=== PATIENT | female | born 1940 | race Caucasian/White ===

== ENCOUNTER → 2016-08-31 | Outpatient (CLI) | payer OTHER | LOC: FIMAGING 11:52 | PROVIDERS: ATTEND Internal Medicine Critical Care Medicine | DX: R91.8 Other nonspecific abnormal finding of lung field (principal); J47.9 Bronchiectasis, uncomplicated; I71.2 Thoracic aortic aneurysm, without rupture; I25.10 Atherosclerotic heart disease of native coronary artery without angina pectoris; K76.0 Fatty (change of) liver, not elsewhere classified ==

== ENCOUNTER 2016-11-06 15:03 | Inpatient (IN) | payer OTHER ==
[2016-11-06] MEDS ORDERED: IPRATROPIUM/ALBUTEROL 3 ML DEYVIAL ONE (15:17)
[2016-11-06] MEDS ORDERED: IPRATROPIUM/ALBUTEROL 3 ML DEYVIAL IH ONE (15:19)
[2016-11-06] MEDS ORDERED: IBUPROFEN 600 MG TAB PO ONE ×2 (15:26→15:50)
[2016-11-06] MEDS ORDERED: ACETAMINOPHEN 500 MG TAB ONE (15:26)
[2016-11-06] MEDS ORDERED: HYDROCORTISONE 100 MG/2 ML VIAL IVP ONE (15:33)
--- NOTE | 2016-11-06 15:39 | EDPHY ---
H & P Time Seen by Provider: 11/06/16 15:39 HPI/ROS: HPI: This is a 76-year-old female who presents with Chief Complaint: Fever Location: Quality: Fever Duration: Unknown Signs and Symptoms: Positive cough, positive diarrhea, no blood in stool, no chest pain, no vomiting Timing: Sudden, constant Severity: Moderate Context: Patient was brought in via EMS for fever since last night. Patient reports also that her diarrhea started last night a total of 5 times. Denies recent antibiotic use. EMS did bring her paper showing her med list as well as her surgical and medical history. No family at bedside. 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 Hysterectomy, 2013 sussy cardioversion. (Jessica Varma) Social History: Former smoker (Jessica Varma) Physical Exam: CONSTITUTIONAL: Obese white female, lethargic, toxic in appearance, wearing nasal cannula HEENT: Atraumatic and normocephalic, PERRL, EOMI. Tympanic membranes clear. Oropharynx clear, no exudate and dry oral mucosa. Airway patent. No lymphadenopathy. No meningismus. Cardiovascular: Normal S1/S2, irregular rate, tachycardic with a rate between varying between 120-130, without murmur rub or gallop. PULMONARY/CHEST: Symmetrical and nontender. Clear to auscultation bilaterally with diminished bases secondary to poor effort and body habitus. Dry cough noted Good air movement. No accessory muscle usage. ABDOMEN: Soft, nondistended, nontender, no rebound, no guarding, no peritoneal signs, no masses or organomegaly. No CVAT. EXTREMITIES: 2/2 pulses, no deformities, no clubbing, no cyanosis or edema. NEUROLOGICAL: no focal neuro deficits. GCS 13. Confused with delayed reaction. Generalized weakness. SKIN: Warm and dry, no erythema. no rash. Good capillary refill. (Jessica Varma) Constitutional: Initial Vital Signs Temperature (C) 39.4 C H 11/06/16 15:22 Heart Rate 112 H 11/06/16 15:22 Respiratory Rate 24 H 11/06/16 15:22 Blood Pressure 163/71 H 11/06/16 15:22 O2 Sat (%) 93 11/06/16 15:22 O2 Delivery Mode Nasal Cannula O2 (L/minute) 3 Allergies/Adverse Reactions: No Known Allergies Allergy (Unverified 11/13/12 09:05) Home Medications: Medication Instructions Recorded Acetaminophen [Tylenol ES 500 mg 500 mg PO Q4H PRN 11/06/16 (*)] Albuterol Sulfate [ALBUTEROL 0.63 mg IH DAILY 11/06/16 SULFATE] Albuterol Sulfate [ALBUTEROL 0.63 mg IH DAILY PRN 11/06/16 SULFATE] Albuterol Sulfate [Proair Hfa] 1 - 2 puffs IH Q4-6PRN PRN 11/06/16 Apixaban [Eliquis] 5 mg PO BID 11/06/16 Aspirin [Aspirin 81mg (*)] 81 mg PO DAILY 11/06/16 Cetirizine [ZyrTEC 10 mg (*)] 10 mg PO DAILY 11/06/16 Cholecalciferol Vit D3 [Vitamin D3 1,000 units PO DAILY 11/06/16 (*)] Digoxin [Digitek] 125 mcg PO DAILY 11/06/16 Diltiazem HCl [Diltiazem 24Hr Cd] 360 mg PO DAILY 11/06/16 Docusate Sodium [Colace 100 MG (*)] 200 mg PO HS PRN 11/06/16 Estradiol [Estrace Vaginal (*)] 42.5 gm VG MOTUWETH 11/06/16 Fluticasone/Salmeterol [ADVAIR HFA 2 puffs IH BID 11/06/16 230-21 MCG INHALER] Furosemide [Lasix 40 MG (*)] 40 mg PO DAILY@1400 11/06/16 Herbals/Supplements -Info Only 1 ea PO DAILY 11/06/16 Ipratropium [place] [IPRATROPIUM 1 spray NS DAILY 11/06/16 BROMIDE] Levothyroxine [Synthroid 175 mcg 175 mcg PO DAILY06 11/06/16 (*)] Metoprolol Succinate Xr [Toprol Xl 25 mg PO DAILY 11/06/16 25 mg (*)] Metoprolol Succinate Xr [Toprol Xl 100 mg PO HS 11/06/16 25 mg (*)] Montelukast Sodium [Singulair 10 10 mg PO DAILY@1800 11/06/16 mg (*)] SIMVASTATIN 10 mg PO HS 11/06/16 diphenhydrAMINE [Benadryl 25 MG 25 mg PO HS 11/06/16 (*)] guaiFENesin/DEXTROMETHORPHAN 2 tab PO DAILY 11/06/16 [Mucinex Dm ER 1,200-60 mg Tab] Medical Decision Making - Diagnostics EKG Interpretation: 12-lead EKG interpreted by me; official reading is in trace master. My interpretation is atrial fibrillation with diffuse repolarization abnormality, rate 108. (Arnaldo Moreno) Imaging Results: Imaging Impressions Chest X-Ray 11/06/16 15:33 Impression: Cardiomegaly with chronic congestive heart failure. Abdomen CT 11/06/16 16:17 Impression: 1. Acute to subacute left renal cortical infarction with surrounding inflammation. This is either renal artery related or embolic/cardiac related. 2. Moderate cardiomegaly. 3. No hydronephrosis. 4. Distal second/proximal third portion of the duodenum dilated at the upper limit of normal at 3 to 4 cm, fluid filled. This is probably incidental and not clinically significant. 5. Right lower quadrant hypodense lesion with a Hounsfield unit below 0, suggestive of fatty content. Has the patient had both ovaries removed? This may represent a dermoid. Findings and recommendations discussed with Jessica Varma PA-C at 1747 hours on November 06, 2016. Final report concurs with initial preliminary interpretation. Head CT 11/06/16 16:17 Impression: Nothing acute. Findings and recommendations discussed with Jessica Varma at 1741 hour, 2016. Final report concurs with initial preliminary interpretation. ED Course/Re-evaluation: Sepsis workup with presumed etiology lung versus urine EKG, labs, CXR, UA in and out, ABG tylenol supp, Duoneb, NS 30 ML/kg, IV hydrocortisone 100 mg given Has a history AFib and subtherapeutic; CT abdominal and pelvis scan ordered to evaluate for ischemic as well as head CT scan due to encephalopathy CXR my read shows atelectasis; no opacity. Signed out to Dr. Moreno at 1700 pending rest of severe sepsis workup. not requiring pressors at sign out. will need admission. (Jessica Varma) Differential Diagnosis: Adult fever including but not limited to viral syndromes including influenza, urinary tract infection, pneumonia and sepsis. (Jessica Varma) Critical Care Time: Critical care time spent by me, Dr. Moreno, exclusively with the care of this patient was 40 minutes, exclusive of PA or TEACHING DIETITIAN time and exclusive of separate procedures. The organ system at risk was hematologic and infectious and I ordered fluid resuscitation, multiple diagnostic studies, anticoagulation, IV antibiotics, discussion with hospitalist; to stabilize the patient and prevent worsening of the patient's condition. (Arnaldo Moreno) Other Provider: PHYSICIAN DOCUMENTATION: The patient was evaluated and managed by the Physician Team Manager and myself. I have reviewed the chart and agree with the findings and plan of care as documented. In addition, I examined the patient myself at 1545. History confirmed as diarrhea, fever and chills. Physical findings as follows: Patient is encephalopathic, she can answer her name and age but can't answer questions regarding her medications or primary care physician. Does follow commands. No rebound or guarding on abdominal exam. CT head negative for Dr. Barnes at 5:[address] shows no mesenteric ischemia but acute infarct of the mid lower renal pelvis on the left side, no abscess. There is 3 cm low density region of the right adnexa. Patient re-evaluated at 6:00 p.m., septic shock with lactate 4.0. Fluid bolus ordered, broad-spectrum antibiotics to include ceftriaxone 1 g IV for pyuria. Discussed with Dr. Brito, admit to step-down, will anticoagulate with single dose Lovenox at this time. Patient is supposed to be taking Eliquis but has managed to have a renal infarct despite this. 1844: CT scan per radiologist Rajesh shows inflamed prostate, thickened bladder , otherwise negative. 1927: Received Lovenox, systolic blood pressure 106 after septic shock fluid bolus, stable for admission to inpatient. 1950: 111/55 bp. \ I am the secondary supervising physician. (Arnaldo Moreno) - Data Points Laboratory Results: Laboratory Results 11/06/16 17:35 11/06/16 15:33 11/06/16 11/06/16 11/06/16 17:35 16:40 16:26 WBC 11.99 10^3/uL H 10^3/uL REJ (3.80-9.50) RBC 4.09 10^6/uL L 10^6/uL REJ (4.18-5.33) Hgb 13.7 g/dL g/dL REJ (12.6-16.3) Hct 39.8 % % REJ (38.0-47.0) MCV 97.3 fL fL REJ (81.5-99.8) MCH 33.5 pg pg REJ (27.9-34.1) MCHC 34.4 g/dL g/dL REJ (32.4-36.7) RDW 12.9 % % REJ (11.5-15.2) Plt Count 152 10^3/uL 10^3/uL REJ (150-400) MPV 9.3 fL fL REJ (8.7-11.7) Neut % (Auto) 93.9 % H % REJ (39.3-74.2) Lymph % (Auto) 2.8 % L % REJ (15.0-45.0) Elbert % (Auto) 1.3 % L % REJ (4.5-13.0) Eos % (Auto) 0.0 % L % REJ (0.6-7.6) Baso % (Auto) 0.4 % % REJ (0.3-1.7) Nucleat RBC Rel Count 0.0 % % REJ (0.0-0.2) Absolute Neuts (auto) 11.25 10^3/uL H 10^3/uL REJ (1.70-6.50) Absolute Lymphs (auto) 0.34 10^3/uL L 10^3/uL REJ (1.00-3.00) Absolute Monos (auto) 0.16 10^3/uL L 10^3/uL REJ (0.30-0.80) Absolute Eos (auto) 0.00 10^3/uL L 10^3/uL REJ (0.03-0.40) Absolute Basos (auto) 0.05 10^3/uL 10^3/uL REJ (0.02-0.10) Absolute Nucleated RBC 0.00 10^3/uL 10^3/uL REJ (0-0.01) Immature Gran % 1.6 % H % REJ (0.0-1.1) Seg Neutrophils % 82 % % Band Neutrophils % 14 % % Lymphocytes % 2 % % Monocytes % Eosinophils % Basophils % Metamyelocytes % 2 % % Myelocytes % Promyelocytes % Blast Cells % Megakaryocytes % Immature Gran # 0.19 10^3/uL H 10^3/uL REJ (0.00-0.10) Absolute Seg Neuts 9.83 10^/uL H 10^/uL (1.70-6.50) Absolute Band Neuts 1.68 10^3/uL H 10^3/uL (0.00-0.70) Absolute Lymphocytes 0.24 10^3/uL L 10^3/uL (1.00-3.00) Absolute Monocytes Absolute Eosinophils Absolute Basophils Absolute Metamyelocyte 0.24 10^3/mL H 10^3/mL (0.00-0.00) Absolute Myelocytes Absolute Promyelocytes Absolute Plasma Cells Nucleated RBCs Differential Comment RBC/WBC/PLT Morphology NORMAL (NORMAL) Hypersegmented Neuts Atypical Lymphocytes Absolute Blast Cells Plasma Cells % Smudge Cells Toxic Granulation Toxic Vacuolation PRESENT H Dohle Bodies Nicole Rods Platelet Estimate ADEQUATE (ADEQ) Clumped Platelets Large Platelets Giant Platelets Bizarre Platelets Polychromasia Hypochromasia Basophilic Stippling Microcytic Cells Spherocytes Pappenheimer Bodies Sickle Cells Target Cells Tear Drop Cells Oval Macrocytes Stomatocytes Mary-[place]eguada Bodies Echinocytes Elliptocytes Acanthocytes (Spur) Rouleaux Keratocytes Schistocytes PT INR APTT VBG Lactic Acid Mixed VBG O2 Saturation Sodium Potassium Chloride Carbon Dioxide Anion Gap BUN Creatinine Estimated GFR Glucose Calcium Total Bilirubin TSH Urine Color YELLOW Urine Appearance HAZY Urine pH 5.0 (5.0-7.5) Ur Specific [place] 1.025 (1.002-1.030) Urine Protein 1+ H (NEGATIVE) Urine Ketones TRACE H (NEGATIVE) Urine Blood NEGATIVE (NEGATIVE) Urine Nitrate NEGATIVE (NEGATIVE) Urine Bilirubin NEGATIVE (NEGATIVE) Urine Urobilinogen NEGATIVE EU EU (0.2-1.0) Ur Leukocyte Esterase TRACE H (NEGATIVE) Urine RBC 3-5 /hpf H /hpf (0-3) Urine WBC 5-10 /hpf H /hpf (0-3) Ur Epithelial Cells NONE SEEN /lpf /lpf (NONE-1+) Urine Bacteria 4+ /hpf H /hpf (NONE SEEN) Hyaline Casts 5-15 /lpf /lpf (0-1) Urine Mucus TRACE /lpf /lpf (NONE-1+) Urine Glucose NEGATIVE (NEGATIVE) Digoxin Cold Agglutinins 11/06/16 11/06/16 11/06/16 15:44 15:44 15:33 WBC RBC Hgb Hct MCV MCH MCHC RDW Plt Count MPV Neut % (Auto) Lymph % (Auto) Elbert % (Auto) Eos % (Auto) Baso % (Auto) Nucleat RBC Rel Count Absolute Neuts (auto) Absolute Lymphs (auto) Absolute Monos (auto) Absolute Eos (auto) Absolute Basos (auto) Absolute Nucleated RBC Immature Gran % Seg Neutrophils % Band Neutrophils % Lymphocytes % Monocytes % Eosinophils % Basophils % Metamyelocytes % Myelocytes % Promyelocytes % Blast Cells % Megakaryocytes % Immature Gran # Absolute Seg Neuts Absolute Band Neuts Absolute Lymphocytes Absolute Monocytes Absolute Eosinophils Absolute Basophils Absolute Metamyelocyte Absolute Myelocytes Absolute Promyelocytes Absolute Plasma Cells Nucleated RBCs Differential Comment RBC/WBC/PLT Morphology Hypersegmented Neuts Atypical Lymphocytes Absolute Blast Cells Plasma Cells % Smudge Cells Toxic Granulation Toxic Vacuolation Dohle Bodies Nicole Rods Platelet Estimate Clumped Platelets Large Platelets Giant Platelets Bizarre Platelets Polychromasia Hypochromasia Basophilic Stippling Microcytic Cells Spherocytes Pappenheimer Bodies Sickle Cells Target Cells Tear Drop Cells Oval Macrocytes Stomatocytes Mary-[place] Bodies Echinocytes Elliptocytes Acanthocytes (Spur) Rouleaux Keratocytes Schistocytes PT INR APTT VBG Lactic Acid 4.0 mmol/L H mmol/L (0.7-2.1) Mixed VBG O2 Saturation 56 % L % (65-75) Sodium 135 mEq/L mEq/L (134-144) Potassium 4.0 mEq/L mEq/L (3.5-5.2) Chloride 100 mEq/L mEq/L (97-110) Carbon Dioxide 18 mEq/l L mEq/l (22-31) Anion Gap 17 mEq/L H mEq/L (8-16) BUN 21 mg/dL mg/dL (7-23) Creatinine 0.9 mg/dL mg/dL (0.6-1.0) Estimated GFR > 60 Glucose 96 mg/dL mg/dL (70-100) Calcium 9.4 mg/dL mg/dL (8.5-10.4) Total Bilirubin 1.3 mg/dL mg/dL (0.1-1.4) TSH 1.560 uIU/mL uIU/mL (0.465-4.680) Urine Color Urine Appearance Urine pH Ur Specific [place] Urine Protein Urine Ketones Urine Blood Urine Nitrate Urine Bilirubin Urine Urobilinogen Ur Leukocyte Esterase Urine RBC Urine WBC Ur Epithelial Cells Urine Bacteria Hyaline Casts Urine Mucus Urine Glucose Digoxin 0.5 ng/mL L ng/mL (0.8-2.0) Cold Agglutinins 11/06/16 11/06/16 15:33 15:33 WBC REJ RBC REJ Hgb REJ Hct REJ MCV REJ MCH REJ MCHC REJ RDW REJ Plt Count REJ MPV REJ Neut % (Auto) REJ Lymph % (Auto) REJ Elbert % (Auto) REJ Eos % (Auto) REJ Baso % (Auto) REJ Nucleat RBC Rel Count REJ Absolute Neuts (auto) REJ Absolute Lymphs (auto) REJ Absolute Monos (auto) REJ Absolute Eos (auto) REJ Absolute Basos (auto) REJ Absolute Nucleated RBC REJ Immature Gran % REJ Seg Neutrophils % REJ Band Neutrophils % REJ Lymphocytes % REJ Monocytes % REJ Eosinophils % REJ Basophils % REJ Metamyelocytes % REJ Myelocytes % REJ Promyelocytes % REJ Blast Cells % REJ Megakaryocytes % REJ Immature Gran # REJ Absolute Seg Neuts REJ Absolute Band Neuts REJ Absolute Lymphocytes REJ Absolute Monocytes REJ Absolute Eosinophils REJ Absolute Basophils REJ Absolute Metamyelocyte REJ Absolute Myelocytes REJ Absolute Promyelocytes REJ Absolute Plasma Cells REJ Nucleated RBCs REJ Differential Comment REJ RBC/WBC/PLT Morphology REJ Hypersegmented Neuts REJ Atypical Lymphocytes REJ Absolute Blast Cells REJ Plasma Cells % REJ Smudge Cells REJ Toxic Granulation REJ Toxic Vacuolation REJ Dohle Bodies REJ Nicole Rods REJ Platelet Estimate REJ Clumped Platelets REJ Large Platelets REJ Giant Platelets REJ Bizarre Platelets REJ Polychromasia REJ Hypochromasia REJ Basophilic Stippling REJ Microcytic Cells REJ Spherocytes REJ Pappenheimer Bodies REJ Sickle Cells REJ Target Cells REJ Tear Drop Cells REJ Oval Macrocytes REJ Stomatocytes REJ Mary-[place] Bodies REJ Echinocytes REJ Elliptocytes REJ Acanthocytes (Spur) REJ Rouleaux REJ Keratocytes REJ Schistocytes REJ PT 19.3 SEC H SEC (12.0-15.0) INR 1.62 H (0.83-1.16) APTT 33.4 SEC SEC (23.0-38.0) VBG Lactic Acid Mixed VBG O2 Saturation Sodium Potassium Chloride Carbon Dioxide Anion Gap BUN Creatinine Estimated GFR Glucose Calcium Total Bilirubin TSH Urine Color Urine Appearance Urine pH Ur Specific [place] Urine Protein Urine Ketones Urine Blood Urine Nitrate Urine Bilirubin Urine Urobilinogen Ur Leukocyte Esterase Urine RBC Urine WBC Ur Epithelial Cells Urine Bacteria Hyaline Casts Urine Mucus Urine Glucose Digoxin Cold Agglutinins REJ Medications Given: Discontinued Medications Acetaminophen (Tylenol 160mg/5ml Oral Liquid) 1,000 mg PO EDNOW ONE Stop: 11/06/16 15:51 Last Admin: 11/06/16 16:12 Dose: Not Given Acetaminophen (Tylenol) 1,000 mg PO EDNOW ONE Stop: 11/06/16 16:14 Last Admin: 11/06/16 16:13 Dose: 1,000 mg Albuterol/Ipratropium (Duoneb) 3 ml IH EDNOW ONE Stop: 11/06/16 15:20 Last Admin: 11/06/16 15:20 Dose: 3 ml Enoxaparin Sodium (Lovenox) 100 mg SC EDNOW ONE Stop: 11/06/16 18:07 Last Admin: 11/06/16 18:39 Dose: 100 mg Hydrocortisone (Solucortef) 100 mg IVP EDNOW ONE Stop: 11/06/16 15:34 Last Admin: 11/06/16 15:44 Dose: 100 mg Sodium Chloride (Ns) 1,000 mls @ 0 mls/hr IV EDNOW ONE; Wide Open PRN Reason: Protocol Stop: 11/06/16 15:41 Last Admin: 11/06/16 15:45 Dose: 1,000 mls Sodium Chloride (Ns) 1,000 mls @ 0 mls/hr IV ONCE ONE PRN Reason: Wide Open Stop: 11/06/16 17:02 Last Admin: 11/06/16 17:28 Dose: 1,000 mls Ceftriaxone Sodium/Dextrose (Rocephin 1 Gm (Premix)) 50 mls @ 100 mls/hr IV EDNOW ONE PRN Reason: Protocol Stop: 11/06/16 18:26 Last Admin: 11/06/16 18:08 Dose: 50 mls Sodium Chloride (Ns) 3,100 mls @ 6,200 mls/hr 30 ml/kg infuse over 30 min ( 3100 ml) IV EDNOW ONE PRN Reason: Protocol Stop: 11/06/16 18:26 Last Admin: 11/06/16 18:23 Dose: Not Given Sodium Chloride (Ns) 1,000 mls @ 0 mls/hr IV ONCE ONE PRN Reason: Wide Open Stop: 11/06/16 18:07 Last Admin: 11/06/16 18:07 Dose: 1,000 mls Ibuprofen (Motrin) 600 mg PO EDNOW ONE Stop: 11/06/16 15:51 Last Admin: 11/06/16 15:50 Dose: 600 mg Departure - Departure Disposition: [facility] Acute Clinical Impression: Encephalopathy acute, Renal infarct, Septic shock Urinary tract infection Qualifiers: Urinary tract infection type: acute pyelonephritis Qualified Code(s): N10 - Acute pyelonephritis Clinical Impression: (Ruled Out): Acute metabolic encephalopathy Condition: Serious
[2016-11-06] MEDS ORDERED: NS 1,000 ML IV ONE ×3 (15:40→18:06)
[2016-11-06] MEDS ORDERED: ACETAMINOPHEN 160 MG/5 ML UDCUP PO ONE (15:50)
[2016-11-06 15:55] LABS: MIXED VENOUS O2 SATURATION 56 % (65-75)
[2016-11-06 16:06] LABS: INR 1.62 (0.83-1.16); PROTIME(PATIENT) 19.3 SEC (12.0-15.0)
[2016-11-06 16:07] LABS: APTT 33.4 SEC (23.0-38.0)
--- NOTE | 2016-11-06 16:12 | CPEKG ---
Heart Rate: 108 RR Interval: 556 QRSD Interval: 92 QT Interval: 368 QTC Interval: 494 QRS [place]: -9 T Wave [place]: -26 EKG Severity - ABNORMAL ECG - EKG Impression: ATRIAL FIBRILLATION, V-RATE 79-138 EKG Impression: CONSIDER POSTERIOR INFARCT EKG Impression: BORDERLINE REPOL ABNORMALITY, DIFFUSE LEADS EKG Impression: BORDERLINE PROLONGED QT INTERVAL Electronically Signed By: Arnaldo Moreno 06-Nov-2016 16:15:50
[2016-11-06] MEDS ORDERED: ACETAMINOPHEN 500 MG TAB PO ONE (16:13)
[2016-11-06 16:15] LABS: ANION GAP 17 mEq/L (8-16); BILIRUBIN,TOTAL 1.3 mg/dL (0.1-1.4); CALCIUM 9.4 mg/dL (8.5-10.4); CARBON DIOXIDE 18 mEq/l (22-31); CHLORIDE 100 mEq/L (97-110); CREATININE 0.9 mg/dL (0.6-1.0); DIGOXIN 0.5 ng/mL (0.8-2.0); GLOMERULAR FILTRATION RATE > 60; GLUCOSE 96 mg/dL (70-100); SODIUM 135 mEq/L (134-144)
[2016-11-06] MEDS ORDERED: IOPAMIDOL (ISOVUE-300) 100 ML BTL ONE (16:30)
[2016-11-06 16:43] LABS: COLOR YELLOW; LEUKOCYTE ESTERASE,URINE TRACE (NEGATIVE); NITRITE,URINE NEGATIVE (NEGATIVE)
[2016-11-06 16:50] LABS: LACGHOST ORDER
[2016-11-06 17:08] LABS: BACTERIA 4+ /hpf (NONE SEEN); MUCUS TRACE /lpf (NONE-1+)
[2016-11-06 17:45] LABS: % IMMATURE GRANULYOCYTES 1.6 % (0.0-1.1); ABSOLUTE IMMATURE GRANULOCYTES 0.19 10^3/uL (0.00-0.10); ADD DIFF? NO; ADD MORPH? NO; ADD SCAN? YES; ATYPICAL LYMPHOCYTE FLAG 0 (0-99); FRAGMENT RBC FLAG 0 (0-99); HEMATOCRIT 39.8 % (38.0-47.0); HEMOGLOBIN 13.7 g/dL (12.6-16.3); LIPEMIA HEMOLYSIS FLAG 90 (0-99); MEAN CELL HEMOGLOBIN 33.5 pg (27.9-34.1); MEAN CELL HEMOGLOBIN CONCENTR. 34.4 g/dL (32.4-36.7); MEAN CELL VOLUME 97.3 fL (81.5-99.8); MEAN PLATELET VOLUME 9.3 fL (8.7-11.7); PLATELET CLUMPS FLAG 20 (0-99); RED BLOOD CELL COUNT 4.09 10^6/uL (4.18-5.33); RED CELL DISTRIBUTION WIDTH 12.9 % (11.5-15.2)
[2016-11-06 17:54] LABS: LEFT SHIFT FLG 150 (0-99)
[2016-11-06] MEDS ORDERED: NS 3,100 ML IV ONE (17:57)
[2016-11-06] MEDS ORDERED: ENOXAPARIN 100 MG/ML SYR SC ONE (18:06)
[2016-11-06 18:20] LABS: PLATELET COUNT 152 10^3/uL (150-400)
[2016-11-06 18:21] LABS: SCAN POSITIVE
[2016-11-06 18:24] LABS: PLATELET ESTIMATE ADEQUATE (ADEQ)
[2016-11-06 18:25] LABS: TOXIC VACUOLIZATION PRESENT
[2016-11-06] MEDS ORDERED: ONDANSETRON 4 MG/2 ML VIAL IVP PRN (18:58)
[2016-11-06] MEDS ORDERED: ONDANSETRON DISINTEGRATING 4 MG TAB PO PRN (18:58)
--- NOTE | 2016-11-06 20:15 | GHP ---
[f rep st] HISTORY AND PHYSICAL DATE OF ADMISSION: 11/06/2016 CHIEF COMPLAINT: Nausea, vomiting, diarrhea, severe sepsis. HISTORY OF PRESENT ILLNESS: A pleasant 76-year-old female with history of atrial fibrillation, diastolic heart failure, and asthma, presented from [facility] with nausea, vomiting, diarrhea. She reports chills starting Saturday and subsequently developed nonbloody diarrhea on Saturday. Has had subjective fevers and dry heaves but no emesis. No dysuria but increased urinary incontinence. No recent travel. No headache. Nonproductive cough. No myalgias. She is on Eliquis but missed a dose on Saturday when ill. REVIEW OF SYSTEMS: I completed a 10-point review of systems, negative except as noted in HPI. PAST MEDICAL HISTORY: Arthritis; diastolic heart failure; atrial fibrillation on Eliquis, status post cardioversion x2; asthma; BELLO on CPAP; hypertension; hyperlipidemia; hypothyroidism; thyroid nodule; recent Holter monitor with atrial fibrillation with good rate control. PAST SURGICAL HISTORY: Cataract, Achilles tendon repair, colonoscopy, hysterectomy, lumbar surgery, shoulder surgery, lung nodule biopsy. SOCIAL HISTORY: Is a retired physical sciences instructor. Lives in [facility] alone. 20 months ago. Independent living. No illicits, tobacco, or drugs. FAMILY HISTORY: Noncontributory. HOME MEDICATIONS: Herbal supplement, docusate, Mucinex, vitamin D3, Benadryl as needed, Zyrtec, Tylenol, simvastatin 10 mg daily, levothyroxine 175 mcg, estradiol, ipratropium/albuterol, Singulair, Advair, metoprolol 25 mg XL, Lasix 40 mg daily, digoxin 125 mcg daily, diltiazem 36 mg daily, aspirin 81 daily. ALLERGIES: No known drug allergies. PHYSICAL EXAMINATION: VITAL SIGNS: Temperature 37.8. Blood pressure initially was 167/71, dropped to 96/56. Heart rate 80s to 112. Respirations 20. Temperature 39.4. 93% on 3 L. GENERAL: Overweight female. No acute distress. HEENT: PERRLA. EOMI. Dry mucous membranes. Oropharynx clear. CV : Irregularly irregular. LUNGS: No crackles or wheezing. ABDOMEN: Soft, nondistended. Positive epigastric pain. No rebound or guarding. Positive bowel sounds. : No suprapubic or CVA tenderness. MUSCULOSKELETAL: 5/5 upper and lower extremity strength. NEURO: 2 through 12 intact. PSYCH: Alert and oriented x3. LABS: WBC 11.99, hemoglobin 13, hematocrit 39, platelets 152. INR 1.6, PT 19. Lactate 4, repeat 1.5. Sodium 135, potassium 4, carbon dioxide 18, anion gap 17, creatinine 0.9, glucose 96. TSH 1.5. Total bilirubin 1.3. UA: 5-10 white , +4 bacteria. Digoxin 0.5. Head CT, personally reviewed by me: No acute bleed. Abdominal CT: Acute to subacute left renal cortical infarct with surrounding inflammation. Moderate cardiomegaly. No hydronephrosis. Chest x-ray, personally reviewed by me: Mild pulmonary edema. Mild blunting of costophrenic angle. EKG, personally reviewed by me: Atrial fibrillation. Tachycardic. ASSESSMENT AND PLAN: 1. Septic shock: Patient with fever, mild leukocytosis, and positive urinalysis. We will treat with ceftriaxone. Check gastrointestinal panel with diarrhea. No recent antibiotics. Blood and urine cultures are pending. Aggressive IVFs, repeat lactate. Cont IVFs 2 Lactic acidosis: due to acute infection. This resolved with intravenous fluids. 3. Hypotension: due to UTI. Secondary to acute infection. Intravenous fluids , as stated above. 4. Renal infarct: embolic vs hypoperfusion. TTE to eval for thrombus. Can further eval for renal dissection/stenosis with renal angiogram. Suspect this is embolic with history of atrial fibrillation. She is on Eliquis and missed 1 dose. She has been dosed full-dose Lovenox here. We will continue this. 5. Metabolic anion gap acidosis: Secondary to dehydration. Aggressive intravenous fluids. 6. History of thyroid nodule: TSH within normal. 7. Hypertension: Hold antihypertensives in the setting of sepsis. 8. Atrial fibrillation: restart in morning given hypotension. If needed, give low-dose short acting BB if needed overnight. 9. Hypothyroidism: Synthroid. 10. Hyperlipidemia: Statin. 11. Diet: Regular. 12. Deep venous thrombosis prophylaxis: Lovenox. DISPOSITION: The patient warrants inpatient admission, given acute septic shock , warranting ICU stay, aggressive IV fluids, and antibiotics. Critical time spent: 60 min evaluating patient, reviewing records, labs and imaging and coordinating care. /[id number]/MODL [id number]
[2016-11-06] MEDS: NS 1,000 ML IV SCH (21:48)
[2016-11-06 23:35] LABS: BILIRUBIN,TOTAL 1.2 mg/dL (0.1-1.4); BILIRUBIN-CONJUGATED 0.5 mg/dL (0.0-0.5); BILIRUBIN-UNCONJUGATED 0.7 mg/dL (0.0-1.1); TOTAL PROTEIN 6.8 g/dL (6.3-8.2)
[2016-11-07 05:23] LABS: HEMATOCRIT 36.9 % (38.0-47.0); HEMOGLOBIN 12.5 g/dL (12.6-16.3); MEAN CELL HEMOGLOBIN 33.8 pg (27.9-34.1); MEAN CELL HEMOGLOBIN CONCENTR. 33.9 g/dL (32.4-36.7); MEAN CELL VOLUME 99.7 fL (81.5-99.8); RED BLOOD CELL COUNT 3.7 10^6/uL (4.18-5.33); RED CELL DISTRIBUTION WIDTH 13.3 % (11.5-15.2)
[2016-11-07 05:46] LABS: ANION GAP 9 mEq/L (8-16); CALCIUM 7.8 mg/dL (8.5-10.4); CARBON DIOXIDE 20 mEq/l (22-31); CHLORIDE 112 mEq/L (97-110); CREATININE 0.7 mg/dL (0.6-1.0); GLOMERULAR FILTRATION RATE > 60; GLUCOSE 89 mg/dL (70-100); POTASSIUM 3.2 mEq/L (3.5-5.2); SODIUM 141 mEq/L (134-144)
[2016-11-07] MEDS: NS 1,000 ML IV SCH ×2 (06:23→16:51)
[2016-11-07] MEDS: DIGOXIN 125 MCG TAB PO SCH (11:42)
[2016-11-07] MEDS: DILTIAZEM CD 180 MG CAP PO SCH (11:42)
[2016-11-07] MEDS ORDERED: ALBUTEROL 3 ML DEYVIAL IH PRN (11:45)
[2016-11-07] MEDS: ACETAMINOPHEN 325 MG TAB PO PRN (11:45)
[2016-11-07] MEDS ORDERED: DOCUSATE SODIUM 100 MG CAP PO PRN (12:12)
[2016-11-07] MEDS ORDERED: ESTRADIOL 42.5 GM CRTUBE VG SCH (12:15)
[2016-11-07] MEDS ORDERED: LEVOTHYROXINE 175 MCG TAB PO ONE (12:39)
[2016-11-07] MEDS: IPRATROPIUM 0.06% NASAL SPRAY NS SCH (12:41)
--- NOTE | 2016-11-07 12:41 | HOSPPROG ---
Hospitalist Progress Note Assessment/Plan: 76 yo F w/hx of A fib, hypothyroid, HTN presenting with severe sepsis/septic shock in the setting of UTI # severe sepsis/septic shock: presenting with sirs with source of infection thought to be urinary with mildly abnormal UA and no other clear source as well as a lactic acid of 4. Lactate has cleared, HD stable. 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 imaging, at this point of unclear significance, TTE performed with results pending, doubt embolus given that patient only missed one dose or her AC # RAD: no e/o acute exacerbation, will continue her home medications # chronic diastolic heart failure: currently appears essentially euvolemic, will resume home lasix dose in am if bp stable # hypothyroid: continue lt4 # hld: continue statin # ron: continue cpap # Dispo: lives independently at [facility], has daughter in area involved in her care, left daughter a with call back info # DNR, patient has DNR bracelet on at all times, daughter would be decision maker IP status Subjective: no significant overnight events, very concerned about her medications, no sob, no abdominal pain Objective: Vital Signs Temp Pulse Resp BP Pulse Ox 36.8 C 92 13 167/71 H 96 11/07/16 11:54 11/07/16 11:54 11/07/16 11:54 11/07/16 11:54 11/07/16 11:54 Laboratory Results 11/07/16 05:14 11/07/16 05:14 11/06/16 11/07/16 11/08/16 05:59 05:59 05:59 Intake Total 4069 Output Total 1875 Balance 2194 PT 19.3 SEC (12.0-15.0) H 11/06/16 15:33 INR 1.62 (0.83-1.16) H 11/06/16 15:33 awake alert nad anicteric op clear irreg irreg no mrg cta b soft nt nd no cce warm dry well perfused oriented appropriate ICD10 Worksheet Patient Problems: Problems Problem Status Onset Encephalopathy acute Acute Urinary tract infection Acute Renal infarct Acute Septic shock Acute
[2016-11-07] MEDS: Fluticasone/Salmeterol [Advair Hfa 230-21 Mcg Inhaler] IH SCH ×2 (14:55→21:13)
--- NOTE | 2016-11-07 15:48 | ECHO ---
[id number] + + [address] : : [place] [address] : : [phone] + + Adult Echocardiographic Report + + :Name: YOCASTA STRANGE PStudy Date: 11/07/2016 09:48 AM : : Hospital Admission Number: [id number] Loc ation: 244: :: 1940 Gender: Female Height: 68 in : :Age: 76 yrs Race: WH,White Weight: 237 lb : :Reason For Study: Eval LV Fx : : BSA: 2.2 me ters2 : :History: Atrial Fibrillation, New renal infarct : + + MMode/2D Measurements \T\ Calculations IVSd: 0.86 cm LVIDd: 4.8 cm FS: 40.6 % Ao root diam: 2.9 cm LVPWd: 1.3 cm LVIDs: 2.8 cm EDV(Teich): 106.1 ml ACS: 1.8 cm ESV(Teich): 30.5 ml EF(Teich): 71.3 % Normal Measurement Values: + + :LVIDd (3.5-5.7cm) IVSd (0.6-1.1cm) LVPWd (0.6-1.1cm) Aortic Root (2.0-3.7cm)Left Atrium (1.5-4.0cm): :LV Vol(d) (76-115ml) LV Vol(s) (29-48ml) Ejec Fraction (50-65%)PV Ricardo (0.6- 1.2m/s) TV Ricardo (0.4-1.0m/s) : :MV E Ricardo (0.8-1.0m/s)MV A Ricardo (0.3-1.0m/s)LVOT Ricardo (0.7-1.2m/s) Asc Ao Ricardo ( 0.9-1.8m/s) : + + Doppler Measurements \T\ Calculations MV E max ricardo: Ao V2 max: LV V1 max: PA V2 max: 105.6 cm/sec 156.1 cm/sec 91.3 cm/sec 85.5 cm/sec Ao max P.7 mmHgLV V1 max PG: PA max P.3 mmHg 2.9 mmHg TR max ricardo: 275.5 cm/sec TR max P.4 mmHg RAP systole: 5.0 mmHg RVSP(TR): 35.4 mmHg Left Ventricle The left ventricle is normal in size. There is normal left ventricular wall thickness. The left ventricular ejection fraction is normal. Ejection Fraction = 72%. There is Doppler evidence for diastolic dysfunction. The rhythm is atrial fibrillation. No regional wall motion abnormalities noted. Right Ventricle The right ventricle is normal in size and function. Atria The left atrium is severely dilated. The right atrium is mild to moderately dilated. Mitral Valve The mitral valve is normal. There is no mitral valve stenosis. There is mild mitral regurgitation. Tricuspid Valve Normal tricuspid valve. There is mild tricuspid regurgitation. Aortic Valve The aortic valve is normal in structure and function. The aortic valve opens well. There is no aortic stenosis. There is no aortic insufficiency. Pulmonic Valve The pulmonic valve is normal in structure and function. There is no pulmonic valvular regurgitation. Great Vessels The aortic root is normal size. Pericardium/Pleural There is no pericardial effusion. Conclusion A complete two-dimensional transthoracic echocardiogram was performed (2D, M-mode, Doppler and color flow Doppler). The rhythm is atrial fibrillation. The left ventricular ejection fraction is normal. Ejection Fraction = 72%. There is Doppler evidence for diastolic dysfunction. No regional wall motion abnormalities noted. The right ventricle is normal in size and function. The left atrium is severely dilated. Normal appearing valves. There is mild mitral regurgitation. There is mild tricuspid regurgitation. The aortic valve opens well. The aortic root is normal size. There is no pericardial effusion. No obvious thrombus noted. Final Reading Physician: Socorro Alexander signed on 11/07/2016 03:46 PM Ordering Physician: Key Brito Performed By: Víctor Dumas, ERICKSONCS
[2016-11-07] MEDS: ESTRADIOL 42.5 GM CRTUBE VG SCH (16:23)
[2016-11-07] MEDS: MONTELUKAST SODIUM 10 MG TAB PO SCH (18:16)
--- NOTE | 2016-11-07 20:28 | GCON ---
[f rep st] CONSULTATION PULMONARY CRITICAL CARE CONSULTATION DATE OF CONSULTATION: 11/07/2016 REASON FOR CONSULTATION: Intensive care unit evaluation and management of sepsis. HISTORY: The patient is a very pleasant 76-year-old who lives independently at [facility]. Yaa jacobs was admitted yesterday with nausea, vomiting, and diarrhea. She was found to be hypotensive on ad mission. Lactate was elevated. Urinalysis was suggestive of a urinary tract infection. She was tr eated with intravenous fluids and antibiotics (ceftriaxone). Blood cultures have grown Klebsiella i n both bottles. Urine culture is pending. Another finding has included an acute or subacute small infarction of the left kidney. CT scan of t he head was negative. Chest x-ray showed cardiomegaly. Cardiac echo shows a normal left ventricula r ejection fraction and a dilated left atrium. There is mild mitral and tricuspid regurgitation. R ight ventricular pressures appear normal. The rhythm was atrial fibrillation. She has known underlying atrial fibrillation and is on anticoagulation for this. She is on twice a day Eliquis and has only missed 1 dose recently. She also has a history of asthma and congestive he art failure. She is on multiple medications. PAST MEDICAL HISTORY: Remarkable for atrial fibrillation, congestive heart failure secondary to uyen stolic dysfunction, chronic anticoagulation, asthma, obstructive sleep apnea on CPAP, hypothyroidism on replacement, systemic hypertension, and hyperlipidemia. PAST SURGICAL HISTORY: Includes orthopedic procedures, hysterectomy, and a lung nodule biopsy which apparently was benign. SOCIAL HISTORY: The patient lives in [facility]. Her in the last 2 years. Alcohol and tobacco are negative. She worked in physical education. She took care of her elderly mother for a long period of time as well. FAMILY HISTORY: Noncontributory. REVIEW OF SYSTEMS: A 10-point review of systems is negative except as noted in the HPI. PHYSICAL EXAMINATION: GENERAL: Reveals a very pleasant woman who is lying comfortably in bed. She is moderately overweight. VITAL SIGNS: Blood pressure is 140/60, heart rate 90 with atrial fibril lation on the monitor. On room air saturations 95%. Respiratory rate is 16. She is afebrile. WILY NT: Unremarkable for lymphadenopathy or thyromegaly. Mucous membranes are moist. There is no jugu lar venous distention. CHEST: Clear anteriorly with decreased breath sounds at the bases. There a re no significant rales, no rhonchi, no wheezes. ABDOMEN: Soft, nontender, overweight. Bowel soun ds are present. EXTREMITIES: Remarkable for trace plus edema bilaterally. There are no cords, no tenderness. NEUROLOGIC: Nonfocal. She does appear to be somewhat globally weak at present. Cogni tion is intact. She is oriented. DATABASE: Radiologic studies are as outlined above. LABORATORY: White blood cell count is 15,000, hematocrit 36.9. Platelets are normal. On admission the PT was 19, PTT 33. Venous lactate was 4 at admission, 3-1/2 hours later normal at 1.5. Sodium is 141, potassium 3.2, chloride 112, CO2 20, BUN 15 with a creatinine of 0.7. Calcium is 7.8. Elise er function studies were normal. Urinalysis showed 5-10 white blood cells and 4+ bacteria. Digoxin level on admission was 0.5. Blood cultures are positive for Klebsiella as outlined above. ASSESSMENT: 1. Urosepsis, associated with hypotension and bacteremia. Clinically she is improving. Sepsis is resolving. Antibiotics are appropriate. 2. Asthma. She is on her usual asthma medications including Advair, albuterol, montelukast, etc. These will be continued. 3. History of multiple medical problems as outlined above. 4. Renal infarct. This is asymptomatic. Presumably this was a small embolic event from her atrial fibrillation? A transesophageal echocardiogram is being considered. PLAN AND RECOMMENDATIONS: Patient will be kept in the intensive care unit. Intravenous fluids will be continued but judiciously at this point. Antibiotics will be continued. Laboratory will be fol lowed. A RHIANNA will be considered. Her usual outpatient medications will be continued and are being given. Further plans and recommendations will be made based on her progress over the next 12-24 hours. /[id number]/MODL
[2016-11-07] MEDS: METOPROLOL SUCCINATE XR 25 MG TAB PO SCH (21:24)
[2016-11-07] MEDS: diphenhydrAMINE 25 MG CAP PO SCH (21:25)
[2016-11-07] MEDS: APIXABAN 5 MG TAB PO SCH (21:25)
[2016-11-07] MEDS: PRAVASTATIN SODIUM 20 MG TAB PO SCH (21:25)
[2016-11-08] MEDS: NS 1,000 ML IV SCH ×2 (02:36→12:58)
[2016-11-08] MEDS: LEVOTHYROXINE 175 MCG TAB PO SCH (05:29)
[2016-11-08 05:53] LABS: % IMMATURE GRANULYOCYTES 0.9 % (0.0-1.1); ABSOLUTE IMMATURE GRANULOCYTES 0.09 10^3/uL (0.00-0.10); ADD DIFF? NO; ADD MORPH? NO; ADD SCAN? NO; ATYPICAL LYMPHOCYTE FLAG 0 (0-99); FRAGMENT RBC FLAG 0 (0-99); HEMATOCRIT 38.6 % (38.0-47.0); HEMOGLOBIN 13.2 g/dL (12.6-16.3); LEFT SHIFT FLG 40 (0-99); LIPEMIA HEMOLYSIS FLAG 90 (0-99); MEAN CELL HEMOGLOBIN 33.5 pg (27.9-34.1); MEAN CELL HEMOGLOBIN CONCENTR. 34.2 g/dL (32.4-36.7); MEAN PLATELET VOLUME 9.8 fL (8.7-11.7); PLATELET CLUMPS FLAG 0 (0-99); PLATELET COUNT 164 10^3/uL (150-400); RED BLOOD CELL COUNT 3.94 10^6/uL (4.18-5.33); RED CELL DISTRIBUTION WIDTH 13.1 % (11.5-15.2)
[2016-11-08 06:13] LABS: ANION GAP 11 mEq/L (8-16); CALCIUM 8.4 mg/dL (8.5-10.4); CARBON DIOXIDE 19 mEq/l (22-31); CHLORIDE 112 mEq/L (97-110); CREATININE 0.6 mg/dL (0.6-1.0); GLOMERULAR FILTRATION RATE > 60; GLUCOSE 72 mg/dL (70-100); POTASSIUM 3.1 mEq/L (3.5-5.2); SODIUM 142 mEq/L (134-144)
[2016-11-08] MEDS: DILTIAZEM CD 180 MG CAP PO SCH (08:44)
[2016-11-08] MEDS: DIGOXIN 125 MCG TAB PO SCH (08:44)
[2016-11-08] MEDS: ASPIRIN 81 MG CHEWABLE TAB PO SCH (08:45)
[2016-11-08] MEDS: APIXABAN 5 MG TAB PO SCH ×2 (08:45→20:26)
[2016-11-08] MEDS: METOPROLOL SUCCINATE XR 25 MG TAB PO SCH ×2 (08:45→20:27)
[2016-11-08] MEDS: CETIRIZINE 10 MG TAB PO SCH (08:45)
[2016-11-08] MEDS: CHOLECALCIFEROL VIT D3 1,000 UNITS TAB PO SCH (08:45)
[2016-11-08] MEDS: ACETAMINOPHEN 325 MG TAB PO PRN ×2 (08:54→20:26)
[2016-11-08] MEDS: FUROSEMIDE 40 MG TAB PO SCH (13:39)
[2016-11-08] MEDS: ESTRADIOL 42.5 GM CRTUBE VG SCH (13:40)
[2016-11-08] MEDS: ALBUTEROL 3 ML DEYVIAL IH SCH (13:54)
[2016-11-08] MEDS: Fluticasone/Salmeterol [Advair Hfa 230-21 Mcg Inhaler] IH SCH ×2 (13:54→20:29)
--- NOTE | 2016-11-08 14:18 | PDINTPN ---
Consumer Experience Consultant Progress Note Assessment/Plan: Assessment: Severe sepsis, resolved. Secondary to urinary tract source. Blood cultures positive for Klebsiella. Status post resuscitation with IV fluids. Lactate now normal. Doing well. Urinary tract infection with bacteremia, as above. Improving on antibiotics. Chronic atrial fibrillation with diastolic dysfunction and congestive heart failure. Stable. Incidental renal infarct. Query embolic. RHIANNA being considered. Metabolic: Hypokalemia, on replacement. DVT: On full-dose anticoagulation for atrial fibrillation with Eliquis. Asthma: No evidence of exacerbation. On Advair, albuterol and montelukast. Plan: Continue antibiotics. Infectious Disease to consult. Can transfer to a medical-surgical bed status today. Continue anticoagulation with Eliquis. Continue gentle diuresis and cardiac meds. Continue asthma medications. Continue CPAP at night. Patient has her own machine here. Follow laboratory. Subjective: Feels better, not yet back to baseline. Denies pain or shortness of breath. Weak, fatigued. Objective: Vital Signs Temp Pulse Resp BP Pulse Ox 36.9 C 81 16 139/65 H 95 11/08/16 08:00 11/08/16 08:46 11/08/16 08:00 11/08/16 08:46 11/08/16 08:00 Microbiology 11/07/16 18:40 Gastrointestinal Tract Panel (PCR) - Final Stool No Organism Detected Laboratory Results 11/08/16 05:30 11/08/16 05:30 11/07/16 11/08/16 11/09/16 05:59 05:59 05:59 Intake Total 4069 3172 450 Output Total 1875 1850 Balance 2194 1322 450 PT 19.3 SEC (12.0-15.0) H 11/06/16 15:33 INR 1.62 (0.83-1.16) H 11/06/16 15:33 Laboratory Tests 11/08/16 05:30 Calcium 8.4 L Physical Exam - Physical Exam General Appearance: alert, no apparent distress, obese, other (Lying comfortably in bed.) EENT: PERRL/EOMI, other (On room air) Neck: normal inspection (Large neck) Respiratory: lungs clear (Anteriorly), decreased breath sounds (At bases), No rales, No rhonchi Cardiac/Chest: irregularly irregular (Atrial fibrillation) Abdomen: normal bowel sounds, non-tender, soft (Overweight) Pelvic Exam: other (Mckeon catheter in place, adequate urine output) Skin: normal color, warm/dry Extremities: pedal edema (Trace +) Neuro/Psych: no motor/sensory deficits, No cognition abnormalities ICD10 Worksheet Patient Problems: Problems Problem Status Onset Encephalopathy acute Acute Renal infarct Acute Septic shock Acute Urinary tract infection Acute
--- NOTE | 2016-11-08 14:46 | HOSPPROG ---
Hospitalist Progress Note Assessment/Plan: 76 yo F w/hx of A fib, hypothyroid, HTN presenting with severe sepsis/septic shock in the setting of UTI # severe sepsis/septic shock: presenting with sepsis in setting of bacteremia with urinary source as well as a lactic acid of 4. Lactate has cleared, HD stable. # klebsiella bacteremia: has been started on ctx with s/s now back and showing that it is sensitive to that. Surveillance cultures drawn again today. # klebsiella UTI: as above # hypotension: in the setting of severe sepsis and now resolved # chronic a fib: as above, resuming diltiazem/digoxin and eliquis, will resume metoprolol tonight if bp remains stable, currently in rate controlled a fib on personal review of telemetry # renal infarct: noted on CT imaging, at this point of unclear significance, TTE performed without e/o vegetation, doubt embolus given that patient only missed one dose or her AC. If blood cultures persistently positive would likely warrant RHIANNA # RAD: no e/o acute exacerbation, will continue her home medications # chronic diastolic heart failure: currently appears essentially euvolemic, will resume home lasix dose in am if bp stable # hypothyroid: continue lt4 # hld: continue statin # ron: continue cpap # Dispo: lives independently at [facility], has daughter in area involved in her care, left daughter a with call back info # DNR, daughter would be decision maker IP status Subjective: no significant overnight events, patient is currently feeling better but fatigued and with limited appetite Objective: Vital Signs Temp Pulse Resp BP Pulse Ox 36.9 C 81 16 139/65 H 95 11/08/16 08:00 11/08/16 08:46 11/08/16 08:00 11/08/16 08:46 11/08/16 08:00 Microbiology 11/07/16 18:40 Gastrointestinal Tract Panel (PCR) - Final Stool No Organism Detected Laboratory Results 11/08/16 05:30 11/08/16 05:30 11/07/16 11/08/16 11/09/16 05:59 05:59 05:59 Intake Total 4069 3172 450 Output Total 1875 1850 Balance 2194 1322 450 PT 19.3 SEC (12.0-15.0) H 11/06/16 15:33 INR 1.62 (0.83-1.16) H 11/06/16 15:33 awake alert nad anicteric op clear irreg irreg no mrg cta b soft nt nd no cce warm dry well perfused oriented appropriate ICD10 Worksheet Patient Problems: Problems Problem Status Onset Encephalopathy acute Acute Renal infarct Acute Septic shock Acute Urinary tract infection Acute
[2016-11-08] MEDS ORDERED: SODIUM CL NASAL 45 ML BTL EACHNARE PRN (17:57)
[2016-11-08] MEDS: MONTELUKAST SODIUM 10 MG TAB PO SCH (18:40)
[2016-11-08] MEDS: IPRATROPIUM 0.06% NASAL SPRAY NS SCH (18:40)
--- NOTE | 2016-11-08 18:56 | GCON ---
[f rep st] CONSULTATION INPATIENT INFECTIOUS DISEASE CONSULTATION REFERRING PHYSICIAN: Timi Ward MD REASON FOR REFERRAL: Bacteremia. HISTORY OF PRESENT ILLNESS: Patient is a 76-year-old female, who was admitted to [facility] through the emergency room on 11/06/2016. She came in complaining of nausea, vomiting, and d iarrhea. Workup, including laboratory data and cultures eventually revealed sepsis due to Klebsiell a pneumoniae. Imaging of the abdomen and pelvis with CT scan revealed a small left renal cortical i nfarction with surrounding inflammation. Echocardiogram for cardiac source was negative. Patient w as started on intravenous ceftriaxone. She currently is resting comfortably in her hospital bed. S he has no significant complaint, although she feels somewhat tired from her illness. She relates a history of having periodic subjective fevers and chills. She is a resident of [place]. Those pe riodic fevers and chills did resolve on their own without diagnosis or intervention. This has been multiple times over the last 6 months. PAST MEDICAL HISTORY: 1. Diastolic heart failure. 2. Atrial fibrillation. 3. Asthma. 4. Obstructive sleep apnea. 5. Hypertension. 6. Hyperlipidemia. 7. Hypothyroidism. PAST SURGICAL HISTORY: 1. Status post cataract removal. 2. Status post hysterectomy. 3. Status post Achilles tendon repair. 4. Status post shoulder surgery. 5. Status post lumbar spine surgery. ANTIBIOTICS: Ceftriaxone. ALLERGIES: No known drug allergies. SOCIAL HISTORY: Patient lives in [facility]. She is a . No tobacco, alcohol, or drug us e noted. FAMILY HISTORY: Not contributory. REVIEW OF SYSTEMS: Other than that detailed above in the History of Present Illness, comprehensive 10-system review is negative. PHYSICAL EXAMINATION: VITAL SIGNS: Temperature maximum is 36.9, temperature current is 36.8, heart rate is 65, respiratory rate is 14, blood pressure is 141/67. GENERAL: Patient is a well-formed o verweight older female in no acute distress. She is not toxic in appearance. She is alert and orie nted x3. She is very pleasant in demeanor. HEENT: Normocephalic for age. Atraumatic. No scleral icterus. No oral lesion. No drainage from the nares. Eyes, lids, and conjunctivae within normal limits. Pupils are equal and round bilaterally. NECK: Supple. No meningismus. LUNGS: Clear to auscultation bilaterally with good effort. HEART: Regular rate and rhythm. No significant periphe ral edema. ABDOMEN: Soft, nontender. No masses. SKIN: Warm and dry to the touch. No rash or le daphnie noted. MUSCULOSKELETAL: No muscle tenderness is noted. No joint line effusion or arthritis i s seen. NEURO: Cranial nerves 2 through 12 seem to be intact. Peripheral sensation seems intact i n extremities. LABORATORY DATA: Patient has a CBC dated 11/08/2016 that shows a white blood cell count of 10.4, he moglobin of 13.2, hematocrit of 38.6, and a platelet count of 164; differential is slightly left-fabi fted. Serum chemistries on 11/08 shows sodium 142, potassium 3.1, chloride 112, bicarbonate 19, BUN of 12, creatinine 0.6. Urinalysis on 11/06 shows 3-5 red cells and 5-10 white cells per high-power field. MICROBIOLOGIC DATA: Patient has blood cultures dated 11/06/2016, which are growing Klebsiella pneum oniae in 2 out of 2 sets. Repeat blood cultures on 11/08 are no growth to date. ASSESSMENT: Klebsiella pneumoniae bacteremia, likely secondary to a nidus of infection in the urina ry tract. I am suspicious that the small left renal infarct may actually be secondarily infected. If this is the case, it is hopeful that 2 weeks of IV antibiotics would be enough to eliminate that nidus. We will follow her clinical course and make decisions about whether to complete treatment wi th IV ceftriaxone or loom changeover operator to oral Levaquin, as it comes closer time for discharge. PLAN: 1. Continue ceftriaxone 1 g IV q.24 hours. 2. Follow repeat blood cultures. 3. Follow her clinical course. /[id number]/MODL
[2016-11-08] MEDS: PRAVASTATIN SODIUM 20 MG TAB PO SCH (20:26)
[2016-11-08] MEDS: diphenhydrAMINE 25 MG CAP PO SCH (20:26)
[2016-11-08] MEDS ORDERED: POTASSIUM CL 20 MEQ TAB PO ONE (23:01)
[2016-11-09] MEDS: ACETAMINOPHEN 325 MG TAB PO PRN ×4 (01:57→22:45)
[2016-11-09 05:45] LABS: ANION GAP 9 mEq/L (8-16); CALCIUM 8.4 mg/dL (8.5-10.4); CARBON DIOXIDE 22 mEq/l (22-31); CHLORIDE 109 mEq/L (97-110); CREATININE 0.6 mg/dL (0.6-1.0); GLOMERULAR FILTRATION RATE > 60; GLUCOSE 94 mg/dL (70-100); POTASSIUM 3.1 mEq/L (3.5-5.2); SODIUM 140 mEq/L (134-144)
[2016-11-09] MEDS: LEVOTHYROXINE 175 MCG TAB PO SCH (06:30)
[2016-11-09] MEDS: ASPIRIN 81 MG CHEWABLE TAB PO SCH (09:49)
[2016-11-09] MEDS: CHOLECALCIFEROL VIT D3 1,000 UNITS TAB PO SCH (09:49)
[2016-11-09] MEDS: APIXABAN 5 MG TAB PO SCH ×2 (09:49→20:32)
[2016-11-09] MEDS: NS 1,000 ML IV SCH ×2 (09:49→22:51)
[2016-11-09] MEDS: DIGOXIN 125 MCG TAB PO SCH (09:50)
[2016-11-09] MEDS: CETIRIZINE 10 MG TAB PO SCH (09:50)
[2016-11-09] MEDS: METOPROLOL SUCCINATE XR 25 MG TAB PO SCH ×2 (09:50→20:32)
[2016-11-09] MEDS: DILTIAZEM CD 180 MG CAP PO SCH (10:02)
--- NOTE | 2016-11-09 12:42 | HOSPPROG ---
Hospitalist Progress Note Assessment/Plan: 76 yo F w/hx of A fib, hypothyroid, HTN presenting with severe sepsis/septic shock in the setting of UTI # severe sepsis/septic shock secondary to klebsiella UTI and subsequent bacteremia: discussed with ID, who suspects source is phlegmon in upper pole of left kidney. Not drainable. -cont IV ceftriaxone -repeat BCx's yesterday NGTD # hypotension: in the setting of severe sepsis, now resolved # chronic a fib: Currently in rate controlled a fib on personal review of telemetry. Cont dilt, dig, metoprolol. CVA prevention with eliquis. # renal infarct: noted on CT imaging, suspect this is source of infection as above. # RAD: no e/o acute exacerbation, will continue her home medications # chronic diastolic heart failure: appears euvolemic, cont home lasix dose # hypothyroid: continue lt4 # hld: continue statin # ron: continue cpap # Dispo: lives independently at [facility], has daughter in area involved in her care # DNR, daughter would be decision maker IP status Subjective: PT feels crummy. Vague left sided abdominal pain. C/O feeling hot , feverish, with chills. No N/V. No CP or SOB. Objective: Vital Signs Temp Pulse Resp BP Pulse Ox 36.8 C 91 24 H 147/71 H 93 11/09/16 11:24 11/09/16 11:24 11/09/16 11:24 11/09/16 11:24 11/09/16 11:24 Laboratory Results 11/08/16 05:30 11/09/16 05:05 11/08/16 11/09/16 11/10/16 05:59 05:59 05:59 Intake Total 3172 2252 Output Total 1850 4200 Balance 1322 -1948 PT 19.3 SEC (12.0-15.0) H 11/06/16 15:33 INR 1.62 (0.83-1.16) H 11/06/16 15:33 - Physical Exam Constitutional: no apparent distress Eyes: PERRL Ears, Nose, Mouth, Throat: moist mucous membranes Cardiovascular: regular rate and rhythym Respiratory: no respiratory distress Gastrointestinal: normoactive bowel sounds, other (mild LUQ TTP without r/r/g, + BS) Skin: warm Musculoskeletal: full muscle strength Neurologic: AAOx3 Psychiatric: interacting appropriately ICD10 Worksheet Patient Problems: Problems Problem Status Onset Encephalopathy acute Acute Renal infarct Acute Septic shock Acute Urinary tract infection Acute
[2016-11-09] MEDS ORDERED: PROTOCOL POTASSIUM 1 DOSE MISC PRN (12:45)
--- NOTE | 2016-11-09 12:53 | PCMIDPN ---
Assessment/Plan: 1. Klebsiella pneumoniae bacteremia secondary to pyelonephritis, with intrarenal phlegmon on CT scan: Please note this is not an infarct, but a phlegmon.( Radiology to amend dictation) It is not a definite abscess amenable to drainage at this point in time. Increase Ceftriaxone to 2g daily with continued observation. Repeat blood cultures no growth so far. Subjective: patient is rigoring in her room. Says rigoring not as bad as yesterday. Feels miserable. Objective: Ceftriaxone 1 g IV daily day 3 T-max 37.2degrees Vital Signs Temp Pulse Resp BP Pulse Ox 37.2 C 99 24 H 140/80 H 92 11/09/16 12:43 11/09/16 12:43 11/09/16 12:43 11/09/16 12:43 11/09/16 12:43 Laboratory Results 11/08/16 05:30 11/09/16 05:05 11/08/16 11/09/16 11/10/16 05:59 05:59 05:59 Intake Total 3172 2252 Output Total 1850 4200 Balance 1322 -1948 blood cultures 3/4 bottles Klebsiella pneumoniae November 08 blood culture x2 no growth so far urine culture with Klebsiella pneumoniae, same susceptibilities as blood. - Physical Exam General Appearance: obese, other ( Looks uncomfortable, right bring in bed.) EENT: pharynx normal Abdomen: non-tender, soft Back: No CVA tenderness Skin: rash ( Multiple bruises on her arms) ICD10 Worksheet Patient Problems: Problems Problem Status Onset Encephalopathy acute Acute Renal infarct Acute Septic shock Acute Urinary tract infection Acute
[2016-11-09] MEDS: ALBUTEROL 3 ML DEYVIAL IH SCH (13:35)
[2016-11-09] MEDS: IPRATROPIUM 0.06% NASAL SPRAY NS SCH (13:35)
[2016-11-09] MEDS: Fluticasone/Salmeterol [Advair Hfa 230-21 Mcg Inhaler] IH SCH ×2 (13:35→22:02)
[2016-11-09] MEDS: FUROSEMIDE 40 MG TAB PO SCH (14:26)
[2016-11-09] MEDS ORDERED: POTASSIUM CL 20 MEQ TAB PO ONE (17:14)
[2016-11-09] MEDS: MONTELUKAST SODIUM 10 MG TAB PO SCH (17:52)
[2016-11-09 18:59] LABS: POTASSIUM 2.9 mEq/L (3.5-5.2)
[2016-11-09] MEDS: diphenhydrAMINE 25 MG CAP PO SCH (20:32)
[2016-11-09] MEDS: PRAVASTATIN SODIUM 20 MG TAB PO SCH (20:32)
[2016-11-09] MEDS ORDERED: POTASSIUM CL 10 MEQ TAB PO ONE (23:20)
[2016-11-10] MEDS: CEPACOL LOZENGE PO PRN (01:03)
[2016-11-10 05:04] LABS: % IMMATURE GRANULYOCYTES 1.2 % (0.0-1.1); ABSOLUTE IMMATURE GRANULOCYTES 0.09 10^3/uL (0.00-0.10); ADD DIFF? NO; ADD MORPH? NO; ADD SCAN? NO; ATYPICAL LYMPHOCYTE FLAG 0 (0-99); FRAGMENT RBC FLAG 0 (0-99); HEMATOCRIT 35.8 % (38.0-47.0); HEMOGLOBIN 12.5 g/dL (12.6-16.3); LEFT SHIFT FLG 10 (0-99); LIPEMIA HEMOLYSIS FLAG 90 (0-99); MEAN CELL HEMOGLOBIN 33.3 pg (27.9-34.1); MEAN CELL HEMOGLOBIN CONCENTR. 34.9 g/dL (32.4-36.7); MEAN CELL VOLUME 95.5 fL (81.5-99.8); MEAN PLATELET VOLUME 9.9 fL (8.7-11.7); PLATELET CLUMPS FLAG 0 (0-99); PLATELET COUNT 190 10^3/uL (150-400); RED BLOOD CELL COUNT 3.75 10^6/uL (4.18-5.33); RED CELL DISTRIBUTION WIDTH 12.9 % (11.5-15.2)
[2016-11-10 05:20] LABS: ANION GAP 8 mEq/L (8-16); CALCIUM 8.3 mg/dL (8.5-10.4); CARBON DIOXIDE 23 mEq/l (22-31); CHLORIDE 109 mEq/L (97-110); CREATININE 0.6 mg/dL (0.6-1.0); GLOMERULAR FILTRATION RATE > 60; GLUCOSE 96 mg/dL (70-100); POTASSIUM 3.2 mEq/L (3.5-5.2); SODIUM 140 mEq/L (134-144)
[2016-11-10] MEDS: LEVOTHYROXINE 175 MCG TAB PO SCH (05:50)
--- NOTE | 2016-11-10 09:15 | PCMIDPN ---
Assessment/Plan: 1. Klebsiella pneumoniae bacteremia secondary to pyelonephritis, with intrarenal phlegmon on CT scan: Continue ceftriaxone as is for now. Patient may be able to be transitioned over to an oral fluoroquinolone upon discharge. This is to be determined based on clinical progress. Thankfully, she has cleared her bacteremia. She may continue to have intermittent rigors/fevers for the next day or so with her pyelonephritis and phlegmon, which I explained to her today. 2. Diarrhea: Likely antibiotic associated. Stool panel negative for C difficile or other pathogens. Subjective: Looks better compared to yesterday. Nauseated, but has not thrown up. Has had loose stool x2 this morning. No abdominal pain. Has not had any rigors yet today, but feels that she is about to. Objective: Ceftriaxone 2 g IV daily day for T-max 37.2degrees Vital Signs Temp Pulse Resp BP Pulse Ox 36.9 C 103 H 20 138/82 H 93 11/10/16 07:02 11/10/16 07:02 11/10/16 07:02 11/10/16 07:02 11/10/16 07:02 Laboratory Results 11/10/16 04:41 11/10/16 04:41 11/09/16 11/10/16 11/11/16 05:59 05:59 05:59 Intake Total 2252 2008 750 Output Total 4200 2650 300 Balance -1948 -641 450 Blood cultures 824- Previous blood culture showed Klebsiella pneumoniae, urine culture also with Klebsiella pneumoniae, quinolone susceptible - Physical Exam General Appearance: obese, other (Looks tired, but nontoxic) EENT: No scleral icterus, No thrush Respiratory: lungs clear Cardiac/Chest: systolic murmur, irregularly irregular Extremities: other (Peripheral IV site right arm looks fine) Abdomen: non-tender, soft, distended Skin: other (Some bruising on her arms) Neuro/Psych: oriented x 3 ICD10 Worksheet Patient Problems: Problems Problem Status Onset Encephalopathy acute Acute Renal infarct Acute Septic shock Acute Urinary tract infection Acute
[2016-11-10] MEDS ORDERED: POTASSIUM CL 10 MEQ TAB PO ONE ×2 (09:17→22:59)
[2016-11-10] MEDS: CETIRIZINE 10 MG TAB PO SCH (09:29)
[2016-11-10] MEDS: DILTIAZEM CD 180 MG CAP PO SCH (09:30)
[2016-11-10] MEDS: CHOLECALCIFEROL VIT D3 1,000 UNITS TAB PO SCH (09:30)
[2016-11-10] MEDS: ASPIRIN 81 MG CHEWABLE TAB PO SCH (09:30)
[2016-11-10] MEDS: METOPROLOL SUCCINATE XR 25 MG TAB PO SCH ×2 (09:31→21:00)
[2016-11-10] MEDS: APIXABAN 5 MG TAB PO SCH ×2 (09:32→21:01)
[2016-11-10] MEDS: DIGOXIN 125 MCG TAB PO SCH (09:32)
[2016-11-10] MEDS: cefTRIAXone 2 GM in D5W 50 ML IV SCH ×2 (09:33→10:36)
[2016-11-10] MEDS: NS 1,000 ML IV SCH ×2 (09:33→10:36)
[2016-11-10] MEDS: ALBUTEROL 3 ML DEYVIAL IH SCH (10:33)
[2016-11-10] MEDS: Fluticasone/Salmeterol [Advair Hfa 230-21 Mcg Inhaler] IH SCH ×2 (10:57→21:46)
[2016-11-10] MEDS: FUROSEMIDE 40 MG TAB PO SCH (14:47)
--- NOTE | 2016-11-10 14:58 | HOSPPROG ---
Hospitalist Progress Note Assessment/Plan: 76 yo F w/hx of A fib, hypothyroid, HTN presenting with severe sepsis/septic shock in the setting of UTI # severe sepsis/septic shock secondary to klebsiella UTI / pyelonephritis and subsequent bacteremia: discussed with ID, who suspects source is phlegmon in upper pole of left kidney c/w complicated pyelonephritis. Not drainable. -cont IV ceftriaxone -repeat BCx's yesterday NGTD -may be able to transition to oral fluoroquinolone at dc # hypotension: in the setting of severe sepsis, now resolved # chronic a fib: Currently in rate controlled a fib on personal review of telemetry. Cont dilt, dig, metoprolol. CVA prevention with eliquis. # hypokalemia: mag nl, replace, follow # RAD: no e/o acute exacerbation, will continue her home medications # chronic diastolic heart failure: appears euvolemic, cont home lasix dose # hypothyroid: continue lt4 # hld: continue statin # ron: continue cpap # Dispo: lives independently at [facility], has daughter in area involved in her care # DNR, daughter would be decision maker IP status Subjective: Pt waking up. Had some ongoing chills overnight. STill feels puny. No N/V. No CP, SOB or abdominal pain. Objective: Vital Signs Temp Pulse Resp BP Pulse Ox 36.9 C 99 20 123/75 H 90 L 11/10/16 14:17 11/10/16 14:17 11/10/16 14:17 11/10/16 14:17 11/10/16 14:17 Laboratory Results 11/10/16 04:41 11/10/16 04:41 11/09/16 11/10/16 11/11/16 05:59 05:59 05:59 Intake Total 2252 2008 187 Output Total 4200 2650 1000 Balance -1948 -641 876 PT 19.3 SEC (12.0-15.0) H 11/06/16 15:33 INR 1.62 (0.83-1.16) H 11/06/16 15:33 - Physical Exam Constitutional: no apparent distress Eyes: PERRL Ears, Nose, Mouth, Throat: moist mucous membranes Cardiovascular: regular rate and rhythym Respiratory: no respiratory distress, clear to auscultation Gastrointestinal: normoactive bowel sounds, other (soft, nd, mild TTP LUQ, no r/ r/g) Skin: warm Musculoskeletal: full muscle strength Neurologic: AAOx3 Psychiatric: interacting appropriately ICD10 Worksheet Patient Problems: Problems Problem Status Onset Encephalopathy acute Acute Renal infarct Acute Septic shock Acute Urinary tract infection Acute
[2016-11-10] MEDS ORDERED: POTASSIUM CL 20 MEQ TAB PO ONE (15:07)
[2016-11-10] MEDS: MONTELUKAST SODIUM 10 MG TAB PO SCH (17:45)
[2016-11-10 18:00] LABS: POTASSIUM 3.3 mEq/L (3.5-5.2)
[2016-11-10] MEDS: IPRATROPIUM 0.06% NASAL SPRAY NS SCH (18:14)
[2016-11-10] MEDS: PRAVASTATIN SODIUM 20 MG TAB PO SCH (21:01)
[2016-11-10] MEDS: diphenhydrAMINE 25 MG CAP PO SCH (21:01)
[2016-11-11 04:38] LABS: POTASSIUM 3.6 mEq/L (3.5-5.2)
[2016-11-11] MEDS: LEVOTHYROXINE 175 MCG TAB PO SCH (05:02)
[2016-11-11] MEDS: NS 1,000 ML IV SCH (05:02)
[2016-11-11] MEDS ORDERED: POTASSIUM CL 10 MEQ TAB PO ONE (06:42)
[2016-11-11] MEDS: DILTIAZEM CD 180 MG CAP PO SCH (08:42)
[2016-11-11] MEDS: APIXABAN 5 MG TAB PO SCH ×2 (08:43→20:45)
[2016-11-11] MEDS: CETIRIZINE 10 MG TAB PO SCH (08:43)
[2016-11-11] MEDS: ASPIRIN 81 MG CHEWABLE TAB PO SCH (08:43)
[2016-11-11] MEDS: DIGOXIN 125 MCG TAB PO SCH (08:43)
[2016-11-11] MEDS: METOPROLOL SUCCINATE XR 25 MG TAB PO SCH ×2 (08:43→20:45)
[2016-11-11] MEDS: cefTRIAXone 2 GM in D5W 50 ML IV SCH (08:46)
--- NOTE | 2016-11-11 08:47 | HOSPPROG ---
Hospitalist Progress Note Assessment/Plan: 76 yo F w/hx of A fib, hypothyroid, HTN presenting with severe sepsis/septic shock in the setting of UTI # severe sepsis/septic shock secondary to klebsiella UTI / pyelonephritis and subsequent bacteremia: discussed with ID, who suspects source is phlegmon in upper pole of left kidney c/w complicated pyelonephritis. Not drainable. -cont IV ceftriaxone -PICC today, will complete therapy with IV atbx per ID, stop date 11/21 -repeat BCx's NGTD # abdominal distention - ?ileus, check plain film. She is receiving both IVF's and oral Lasix. If no e/o ileus, will d/c IVF's. # hypotension: in the setting of severe sepsis, now resolved # chronic a fib: Remains rate controlled on dilt, dig, metoprolol. CVA prevention with eliquis. # hypokalemia: mag nl, replace, follow # RAD: no e/o acute exacerbation, will continue her home medications # chronic diastolic heart failure: cont lasix dose # hypothyroid: continue lt4 # hld: continue statin # ron: continue cpap # Dispo: lives independently at [facility], has daughter in area involved in her care # DNR, daughter would be decision maker IP status Subjective: Pt feels a bit better today. Had 2 loose stools yesterday, no ongoing diarrhea. C/O abdominal distention this am. No N/V. She is not ambulating much, c/o knee pain. No fevers. Objective: Vital Signs Temp Pulse Resp BP Pulse Ox 37.1 C 92 20 137/88 H 91 L 11/11/16 08:00 11/11/16 08:00 11/11/16 08:00 11/11/16 08:00 11/11/16 08:00 Laboratory Results 11/10/16 04:41 11/11/16 04:14 11/10/16 11/11/16 11/12/16 05:59 05:59 05:59 Intake Total 2008 4025 Output Total 2650 2800 200 Balance -641 1225 -200 PT 19.3 SEC (12.0-15.0) H 11/06/16 15:33 INR 1.62 (0.83-1.16) H 11/06/16 15:33 - Physical Exam Constitutional: no apparent distress Eyes: PERRL Ears, Nose, Mouth, Throat: moist mucous membranes Cardiovascular: regular rate and rhythym Respiratory: no respiratory distress, clear to auscultation Gastrointestinal: normoactive bowel sounds, other (soft, mild distention, non- tender, hypoactive bowel tones) Skin: warm Musculoskeletal: full muscle strength Neurologic: AAOx3 Psychiatric: interacting appropriately ICD10 Worksheet Patient Problems: Problems Problem Status Onset Encephalopathy acute Acute Renal infarct Acute Septic shock Acute Urinary tract infection Acute
[2016-11-11] MEDS ORDERED: ALTEPLASE 2 MG VIAL IVP PRN (10:12)
--- NOTE | 2016-11-11 10:15 | PCMIDPN ---
Assessment/Plan: 1. Klebsiella pneumoniae bacteremia secondary to pyelonephritis, with intrarenal phlegmon (not infarct) on CT scan: Continue ceftriaxone as is. Had long conversation with patient about the pros and cons of transitioning to oral fluoroquinolones versus continuing IV antibiotics via PICC line. Patient and I decided to move forward with a PICC line and to continue intravenous antibiotics for the duration of her therapy. Tentative stop date November 21. PICC line today. Subjective: Feels better every day, but bloated today. No nausea or vomiting. Had 2 tiny loose stools yesterday. Nonbloody. Appetite is returning. No further rigors. Objective: Vital Signs Ceftriaxone 2 g IV daily day 5., stop date November 21 T-max 37.1degrees Temp Pulse Resp BP Pulse Ox 37.1 C 130 H 20 137/88 H 93 11/11/16 08:00 11/11/16 09:11 11/11/16 08:00 11/11/16 08:43 11/11/16 09:11 Laboratory Results 11/10/16 04:41 11/11/16 04:14 11/10/16 11/11/16 11/12/16 05:59 05:59 05:59 Intake Total 2008 4025 Output Total 2650 2800 200 Balance -641 1225 -200 Previous blood cultures with Klebsiella pneumoniae, urine culture with Klebsiella pneumoniae Repeat blood cultures November 08 no growth - Physical Exam General Appearance: no apparent distress, obese EENT: pharynx normal, No scleral icterus, No thrush Respiratory: lungs clear Cardiac/Chest: systolic murmur, irregularly irregular Abdomen: soft, distended Skin: other (Multiple bruises on her arms) Neuro/Psych: oriented x 3 ICD10 Worksheet Patient Problems: Problems Problem Status Onset Encephalopathy acute Acute Renal infarct Acute Septic shock Acute Urinary tract infection Acute
[2016-11-11] MEDS: ALBUTEROL 3 ML DEYVIAL IH SCH (10:19)
[2016-11-11] MEDS: Fluticasone/Salmeterol [Advair Hfa 230-21 Mcg Inhaler] IH SCH ×2 (10:19→21:03)
[2016-11-11] MEDS: IPRATROPIUM 0.06% NASAL SPRAY NS SCH (12:45)
[2016-11-11] MEDS: CHOLECALCIFEROL VIT D3 1,000 UNITS TAB PO SCH (12:45)
[2016-11-11] MEDS: FUROSEMIDE 40 MG TAB PO SCH (17:44)
[2016-11-11] MEDS: MONTELUKAST SODIUM 10 MG TAB PO SCH (17:44)
[2016-11-11 18:05] LABS: POTASSIUM 3.5 mEq/L (3.5-5.2)
[2016-11-11] MEDS: PRAVASTATIN SODIUM 20 MG TAB PO SCH (20:45)
[2016-11-11] MEDS: diphenhydrAMINE 25 MG CAP PO SCH (20:45)
[2016-11-12] MEDS ORDERED: POTASSIUM CL 10 MEQ TAB PO ONE ×3 (00:28→07:38)
[2016-11-12] MEDS: ACETAMINOPHEN 325 MG TAB PO PRN (03:35)
[2016-11-12] MEDS: CEPACOL LOZENGE PO PRN (03:35)
[2016-11-12 04:34] LABS: POTASSIUM 3.5 mEq/L (3.5-5.2)
[2016-11-12] MEDS: LEVOTHYROXINE 175 MCG TAB PO SCH (05:59)
[2016-11-12] MEDS: ALBUTEROL 3 ML DEYVIAL IH SCH (09:21)
[2016-11-12] MEDS: Fluticasone/Salmeterol [Advair Hfa 230-21 Mcg Inhaler] IH SCH ×2 (09:22→21:41)
[2016-11-12] MEDS: cefTRIAXone 2 GM in D5W 50 ML IV SCH (09:37)
[2016-11-12] MEDS: DIGOXIN 125 MCG TAB PO SCH (09:38)
[2016-11-12] MEDS: APIXABAN 5 MG TAB PO SCH ×2 (09:38→20:19)
[2016-11-12] MEDS: DILTIAZEM CD 180 MG CAP PO SCH (09:38)
[2016-11-12] MEDS: CETIRIZINE 10 MG TAB PO SCH (09:38)
[2016-11-12] MEDS: METOPROLOL SUCCINATE XR 25 MG TAB PO SCH ×2 (09:38→20:19)
[2016-11-12] MEDS: ASPIRIN 81 MG CHEWABLE TAB PO SCH (09:38)
[2016-11-12] MEDS: CHOLECALCIFEROL VIT D3 1,000 UNITS TAB PO SCH (09:39)
[2016-11-12] MEDS ORDERED: METOPROLOL SUCCINATE XR 25 MG TAB PO SCH (12:46)
[2016-11-12] MEDS ORDERED: METOPROLOL SUCCINATE XR 25 MG TAB PO ONE (12:46)
--- NOTE | 2016-11-12 12:49 | HOSPPROG ---
Hospitalist Progress Note Assessment/Plan: 76 yo F w/hx of A fib, hypothyroid, HTN presenting with severe sepsis/septic shock in the setting of UTI # severe sepsis/septic shock secondary to klebsiella UTI / pyelonephritis and subsequent bacteremia: discussed with ID, who suspects source is phlegmon in upper pole of left kidney c/w complicated pyelonephritis. Not drainable. Overall slowly improving. -cont IV ceftriaxone -PICC in place -repeat BCx's NGTD # abdominal distention - improved, xr yest neg for ileus # hypotension: in the setting of severe sepsis, now resolved and a bit hypertensive # chronic a fib: Rate is 110's at rest, 120's with activity, on dilt, dig, metoprolol. CVA prevention with eliquis. -will give additional dose of toprol now and increase to 50 qam tomorrow for better rate control. # hypokalemia: mag nl, replace, follow # RAD: no e/o acute exacerbation, will continue her home medications # chronic diastolic heart failure: cont lasix dose # hypothyroid: continue lt4 # hld: continue statin # ron: continue cpap # Dispo: lives independently at [facility], has daughter in area involved in her care # DNR, daughter would be decision maker IP status Subjective: Pt feels a little better, slow to improve. No fevers/chills. She is weak. Objective: Vital Signs Temp Pulse Resp BP Pulse Ox 36.7 C 106 H 14 158/99 H 95 11/12/16 11:43 11/12/16 11:43 11/12/16 11:43 11/12/16 11:43 11/12/16 11:43 Laboratory Results 11/10/16 04:41 11/12/16 04:02 11/11/16 11/12/16 11/13/16 05:59 05:59 05:59 Intake Total 4025 1000 Output Total 2800 2800 Balance 1225 -1800 PT 19.3 SEC (12.0-15.0) H 11/06/16 15:33 INR 1.62 (0.83-1.16) H 11/06/16 15:33 - Physical Exam Constitutional: no apparent distress Eyes: PERRL Ears, Nose, Mouth, Throat: moist mucous membranes Cardiovascular: regular rate and rhythym Respiratory: no respiratory distress, clear to auscultation Gastrointestinal: normoactive bowel sounds, soft, non-tender abdomen Skin: warm Musculoskeletal: full muscle strength Neurologic: AAOx3 Psychiatric: interacting appropriately ICD10 Worksheet Patient Problems: Problems Problem Status Onset Encephalopathy acute Acute Renal infarct Acute Septic shock Acute Urinary tract infection Acute
[2016-11-12] MEDS: FUROSEMIDE 40 MG TAB PO SCH (14:15)
[2016-11-12] MEDS: IPRATROPIUM 0.06% NASAL SPRAY NS SCH (14:16)
[2016-11-12] MEDS: ESTRADIOL 42.5 GM CRTUBE VG SCH (14:16)
--- NOTE | 2016-11-12 18:11 | PCMIDPN ---
Assessment/Plan: Assessment: Klebsiella pneumoniae bacteremia-felt to be secondary to a small phlegmon area in the kidney. Currently treating with IV ceftriaxone. Patient is tolerating this therapy well. Do not believe that transitioning over to oral fluoroquinolones would be in the patient's best interest secondary to side effect concerns. Will treat for 2 weeks status post cleared blood cultures. Plan: 1. Continue IV ceftriaxone daily. 2 week duration from cleared blood cultures. 2. Follow clinical course. Agree with discharge back to [facility] facility tomorrow. 11/12/16 18:11 11/12/16 18:12 Subjective: Patient is resting in her hospital chair. She has no new complaints. She states that she is feeling a little better every day but does not feel back to baseline yet. No fevers or chills. Objective: Ceftriaxone # 6 Vital Signs Temp Pulse Resp BP Pulse Ox 36.7 C 106 H 18 155/80 H 94 11/12/16 16:00 11/12/16 16:00 11/12/16 16:00 11/12/16 16:00 11/12/16 16:00 Laboratory Results 11/10/16 04:41 11/12/16 04:02 11/11/16 11/12/16 11/13/16 05:59 05:59 05:59 Intake Total 4025 1000 Output Total 2800 2800 Balance 1225 -1800 - Physical Exam General Appearance: WD/WN, alert, no apparent distress, non-toxic Respiratory: lungs clear, normal breath sounds, No respiratory distress Cardiac/Chest: regular rate, rhythm, No tachycardia Skin: normal color, warm/dry, No rash Neuro/Psych: alert, normal mood/affect, oriented x 3 ICD10 Worksheet Patient Problems: Problems Problem Status Onset Encephalopathy acute Acute Renal infarct Acute Septic shock Acute Urinary tract infection Acute
[2016-11-12] MEDS: MONTELUKAST SODIUM 10 MG TAB PO SCH (18:35)
[2016-11-12] MEDS: diphenhydrAMINE 25 MG CAP PO SCH (20:19)
[2016-11-12] MEDS: PRAVASTATIN SODIUM 20 MG TAB PO SCH (20:19)
[2016-11-13] MEDS: LEVOTHYROXINE 175 MCG TAB PO SCH (08:25)
[2016-11-13] MEDS ORDERED: METOPROLOL SUCCINATE XR 50 MG TAB PO SCH (09:00)
[2016-11-13] MEDS ORDERED: POTASSIUM CL 20 MEQ TAB PO SCH (09:00)
[2016-11-13] MEDS: APIXABAN 5 MG TAB PO SCH (09:01)
[2016-11-13] MEDS: DILTIAZEM CD 180 MG CAP PO SCH (09:01)
[2016-11-13] MEDS: CETIRIZINE 10 MG TAB PO SCH (09:01)
[2016-11-13] MEDS: DIGOXIN 125 MCG TAB PO SCH (09:01)
[2016-11-13] MEDS: ASPIRIN 81 MG CHEWABLE TAB PO SCH (09:01)
[2016-11-13] MEDS: CHOLECALCIFEROL VIT D3 1,000 UNITS TAB PO SCH (09:01)
[2016-11-13] MEDS: cefTRIAXone 2 GM in D5W 50 ML IV SCH (09:02)
[2016-11-13] MEDS: ACETAMINOPHEN 325 MG TAB PO PRN (09:15)
[2016-11-13] MEDS: Fluticasone/Salmeterol [Advair Hfa 230-21 Mcg Inhaler] IH SCH (09:27)
[2016-11-13] MEDS: ALBUTEROL 3 ML DEYVIAL IH SCH (09:27)
--- NOTE | 2016-11-13 10:31 | PCMIDPN ---
Assessment/Plan: Assessment/Plan: 1. Klebsiella bacteremia/sepsis secondary to left pyelonephritis with small phlegmon: -Reviewed Ct abd from 11/06/16. small phlegmon noted. -f/u blood cx negative from 11/08/16 -currently on IV ceftriaxone. -Will plan for 3 weeks therapy with a f/u Ct abd next week (at 2 weeks ) to assess status of phlegmon. This will help to determine overall duration of therapy. -check labs today prior to d/c. -Above plan was discussed at length with patient. -Care coordinated with Case management. will order for Ct abd to be arranged for by [facility] [employer]. - care coordinated with hospitalist team as well - will set up f/u appt in our office. Meds ceftriaxone 2g daily- 11/10/16 (prior was on 1g daily from 11/06-11/09) Subjective: afebrile. feeling better overall. feels fatigued and weak. denies flank pain, or abd pain. no mor loose stools. no dysuria. denies sob. has chronic cough. Objective: Vital Signs Temp Pulse Resp BP Pulse Ox 36.7 C 86 18 128/72 H 94 11/13/16 10:01 11/13/16 10:01 11/13/16 10:01 11/13/16 10:01 11/13/16 10:01 Microbiology 11/08/16 05:57 Blood Culture - Final Blood 11/08/16 05:57 Blood Culture - Final Blood Laboratory Results 11/10/16 04:41 11/12/16 04:02 11/12/16 11/13/16 11/14/16 05:59 05:59 05:59 Intake Total 1000 1350 Output Total 2800 1500 Balance -1800 -150 - Physical Exam General Appearance: alert, no apparent distress Respiratory: lungs clear Cardiac/Chest: regular rate, rhythm Extremities: swelling, other (RUE picc line) Abdomen: normal bowel sounds, non-tender, soft, No distended Skin: No erythema - Time Spent With Patient Time Spent with Patient: greater than 35 minutes Time Spent with Patient: Greater than 35 minutes spent on this patients care, greater than 50% of time spent counseling, educating, and coordinating care regarding the above mentioned plan. ICD10 Worksheet Patient Problems: Problems Problem Status Onset Encephalopathy acute Acute Renal infarct Acute Septic shock Acute Urinary tract infection Acute
[2016-11-13 10:37] LABS: HEMATOCRIT 36.8 % (38.0-47.0); HEMOGLOBIN 12.8 g/dL (12.6-16.3); MEAN CELL HEMOGLOBIN 33.6 pg (27.9-34.1); MEAN CELL HEMOGLOBIN CONCENTR. 34.8 g/dL (32.4-36.7); MEAN CELL VOLUME 96.6 fL (81.5-99.8); RED BLOOD CELL COUNT 3.81 10^6/uL (4.18-5.33)
--- NOTE | 2016-11-13 10:37 | PDIAF ---
- Diagnosis Diagnosis: Klebsiella bacteremia/sepsis with left pyelonrephritis/phlegmon Code Status: Do Not Resuscitate - Medication Management Discharge Medications: Medications to Continue on Transfer Acetaminophen [Tylenol ES 500 mg (*)] 500 mg PO Q4H PRN 11/06/16 [Last Taken Unknown] Albuterol Sulfate [ALBUTEROL SULFATE] 0.63 mg IH DAILY 11/06/16 [Last Taken Unknown] Albuterol Sulfate [ALBUTEROL SULFATE] 0.63 mg IH DAILY PRN 11/06/16 [Last Taken Unknown] Albuterol Sulfate [Proair Hfa] 1 - 2 puffs IH Q4-6PRN PRN 11/06/16 [Last Taken Unknown] Apixaban [Eliquis] 5 mg PO BID 11/06/16 [Last Taken Unknown] Aspirin [Aspirin 81mg (*)] 81 mg PO DAILY 11/06/16 [Last Taken Unknown] Cetirizine [ZyrTEC 10 mg (*)] 10 mg PO DAILY 11/06/16 [Last Taken Unknown] Cholecalciferol Vit D3 [Vitamin D3 (*)] 1,000 units PO DAILY 11/06/16 [Last Taken Unknown] Digoxin [Digitek] 125 mcg PO DAILY 11/06/16 [Last Taken Unknown] Diltiazem HCl [Diltiazem 24Hr Cd] 360 mg PO DAILY 11/06/16 [Last Taken Unknown] Docusate Sodium [Colace 100 MG (*)] 200 mg PO HS PRN 11/06/16 [Last Taken Unknown] Estradiol [Estrace Vaginal (*)] 42.5 gm VG MOTUWETH 11/06/16 [Last Taken Unknown ] Fluticasone/Salmeterol [ADVAIR HFA 230-21 MCG INHALER] 2 puffs IH BID 11/06/16 [ Last Taken Unknown] Furosemide [Lasix 40 MG (*)] 40 mg PO DAILY@1400 11/06/16 [Last Taken Unknown] Herbals/Supplements -Info Only 1 ea PO DAILY 11/06/16 [Last Taken Unknown] Ipratropium [place] [IPRATROPIUM BROMIDE] 1 spray NS DAILY 11/06/16 [Last Taken Unknown] Levothyroxine [Synthroid 175 mcg (*)] 175 mcg PO DAILY06 11/06/16 [Last Taken Unknown] Metoprolol Succinate Xr [Toprol Xl 25 mg (*)] 25 mg PO DAILY 11/06/16 [Last Taken Unknown] Metoprolol Succinate Xr [Toprol Xl 25 mg (*)] 100 mg PO HS 11/06/16 [Last Taken Unknown] Montelukast Sodium [Singulair 10 mg (*)] 10 mg PO DAILY@1800 11/06/16 [Last Taken Unknown] SIMVASTATIN 10 mg PO HS 11/06/16 [Last Taken Unknown] diphenhydrAMINE [Benadryl 25 MG (*)] 25 mg PO HS 11/06/16 [Last Taken Unknown] guaiFENesin/DEXTROMETHORPHAN [Mucinex Dm ER 1,200-60 mg Tab] 2 tab PO DAILY [Last Taken Unknown] Photographic Process Attendant Antibiotics: ceftriaxone 2g IV daily Group Home Antibiotic Stop Date: 11/28/16 Discharge Medications: Refer to the Discharge Home Medication list for PRN reason. PICC Care - Routine: Yes - Labs/Radiology CBC Date: 11/20/16 (q mondays thereafter) CMP Date: 11/20/16 (q mondays thereafter) CRP Date: 11/20/16 (q mondays thereafter) Imaging Orders: Ct Abdomen with IV contrast-please arrange to be done on . Call or Fax Lab and Imaging Results to: to Dr. Carmichael: [phone] - Follow Up Care Current Providers and Referrals: Patient,NotPresent [Unknown] - As per Instructions Christian Carmichael MD [Medical Doctor] - 11/28/16 9:15 am (f/u with Dr. Carmichael ( INfectious Diseases) at 9:15am. Check in time is 9:00am. Thanks. )
[2016-11-13 11:01] LABS: ALANINE AMINOTRANSFERASE 35 IU/L (9-52); ALBUMIN 3.1 g/dL (3.5-5.0); ALKALINE PHOSPHATASE 60 IU/L (38-126); ANION GAP 8 mEq/L (8-16); ASPARTATE AMINOTRANSFERASE 18 IU/L (14-46); BILIRUBIN,TOTAL 0.6 mg/dL (0.1-1.4); C-REACTIVE PROTEIN 64.6 mg/L (<10.0); CALCIUM 8.8 mg/dL (8.5-10.4); CARBON DIOXIDE 24 mEq/l (22-31); CHLORIDE 106 mEq/L (97-110); CREATININE 0.6 mg/dL (0.6-1.0); GLOMERULAR FILTRATION RATE > 60; GLUCOSE 107 mg/dL (70-100); POTASSIUM 3.6 mEq/L (3.5-5.2); SODIUM 138 mEq/L (134-144); TOTAL PROTEIN 5.7 g/dL (6.3-8.2)
--- NOTE | 2016-11-13 11:56 | ASMTCMCOM ---
CM Note CM Note Notes: Spoke w/ ID , states pt will need Cat scan f/u in 1 week, will put in [employer]. Kong at not ified. Date Signed: 11/13/2016 10:23 AM Electronically Signed By:Keshia Patricia
--- NOTE | 2016-11-13 12:06 | PDIAF ---
- Diagnosis Diagnosis: Klebsiella bacteremia/sepsis with left pyelonrephritis/phlegmon Code Status: Do Not Resuscitate - Medication Management Discharge Medications: Medications to Continue on Transfer Acetaminophen [Tylenol ES 500 mg (*)] 500 mg PO Q4H PRN 11/06/16 [Last Taken Unknown] Albuterol Sulfate [ALBUTEROL SULFATE] 0.63 mg IH DAILY 11/06/16 [Last Taken Unknown] Albuterol Sulfate [ALBUTEROL SULFATE] 0.63 mg IH DAILY PRN 11/06/16 [Last Taken Unknown] Albuterol Sulfate [Proair Hfa] 1 - 2 puffs IH Q4-6PRN PRN 11/06/16 [Last Taken Unknown] Apixaban [Eliquis] 5 mg PO BID 11/06/16 [Last Taken Unknown] Aspirin [Aspirin 81mg (*)] 81 mg PO DAILY 11/06/16 [Last Taken Unknown] Cetirizine [ZyrTEC 10 mg (*)] 10 mg PO DAILY 11/06/16 [Last Taken Unknown] Cholecalciferol Vit D3 [Vitamin D3 (*)] 1,000 units PO DAILY 11/06/16 [Last Taken Unknown] Digoxin [Digitek] 125 mcg PO DAILY 11/06/16 [Last Taken Unknown] Diltiazem HCl [Diltiazem 24Hr Cd] 360 mg PO DAILY 11/06/16 [Last Taken Unknown] Docusate Sodium [Colace 100 MG (*)] 200 mg PO HS PRN 11/06/16 [Last Taken Unknown] Estradiol [Estrace Vaginal (*)] 42.5 gm VG MOTUWETH 11/06/16 [Last Taken Unknown ] Fluticasone/Salmeterol [ADVAIR HFA 230-21 MCG INHALER] 2 puffs IH BID 11/06/16 [ Last Taken Unknown] Furosemide [Lasix 40 MG (*)] 40 mg PO DAILY@1400 11/06/16 [Last Taken Unknown] Herbals/Supplements -Info Only 1 ea PO DAILY 11/06/16 [Last Taken Unknown] Ipratropium [place] [IPRATROPIUM BROMIDE] 1 spray NS DAILY 11/06/16 [Last Taken Unknown] Levothyroxine [Synthroid 175 mcg (*)] 175 mcg PO DAILY06 11/06/16 [Last Taken Unknown] Metoprolol Succinate Xr [Toprol Xl 25 mg (*)] 100 mg PO HS 11/06/16 [Last Taken Unknown] Montelukast Sodium [Singulair 10 mg (*)] 10 mg PO DAILY@1800 11/06/16 [Last Taken Unknown] SIMVASTATIN 10 mg PO HS 11/06/16 [Last Taken Unknown] diphenhydrAMINE [Benadryl 25 MG (*)] 25 mg PO HS 11/06/16 [Last Taken Unknown] guaiFENesin/DEXTROMETHORPHAN [Mucinex Dm ER 1,200-60 mg Tab] 2 tab PO DAILY [Last Taken Unknown] Metoprolol Succinate Xr [Toprol Xl 50 mg (*)] 50 mg PO DAILY #30 tab 11/13/16 [ Last Taken Unknown] Ondansetron Odt [Zofran Odt 4 mg (*)] 4 mg PO Q4HRS PRN #20 tab 11/13/16 [Last Taken Unknown] Potassium Cl [Klor-Con 20 meq (*)] 20 meq PO DAILY #30 tab 11/13/16 [Last Taken Unknown] Sodium Cl Nasal [N[place]row [place] (*)] 2 spray EACHNARE DAILY PRN #0 btl 11/13/16 [ Last Taken Unknown] cefTRIAXone [Rocephin] 2 gm IV DAILY vial 11/13/16 [Last Taken Unknown] Daytime Babysitter Antibiotics: ceftriaxone 2g IV daily [facility] Antibiotic Stop Date: 11/28/16 Discharge Medications: Refer to the Discharge Home Medication list for PRN reason. PICC Care - Routine: Yes - Orders Services needed: Registered Nurse, Physical Therapy, Occupational Therapy Diet Recommendation: no restrictions on diet - Labs/Radiology CBC Date: 11/20/16 (q mondays thereafter) CMP Date: 11/20/16 (q mondays thereafter) CRP Date: 11/20/16 (q mondays thereafter) Imaging Orders: Ct Abdomen with IV contrast-please arrange to be done on . Call or Fax Lab and Imaging Results to: to Dr. Carmichael: [phone] - Follow Up Care Current Providers and Referrals: Patient,NotPresent [Unknown] - As per Instructions Christian Carmichael MD [Medical Doctor] - 11/28/16 9:15 am (f/u with Dr. Carmichael ( INfectious Diseases) at 9:15am. Check in time is 9:00am. Thanks. )
[2016-11-13 13:28] VITALS: BP 124/78; PULSE 114; RESP 14; TEMP 97.7; O2SAT 95
[2016-11-13] MEDS: ESTRADIOL 42.5 GM CRTUBE VG SCH (13:40)
[2016-11-13] MEDS: FUROSEMIDE 40 MG TAB PO SCH (13:40)
[2016-11-13] MEDS: IPRATROPIUM 0.06% NASAL SPRAY NS SCH (13:42)
--- NOTE | 2016-11-13 14:23 | ASMTCMCOM ---
CM Note CM Note Notes: Spoke w/Kong at [facility], pt will dc there today. CM arranged transport through [employer], wi ll pepper picker pt at 2:45. CM notified daughter Tiffanie . Date Signed: 11/13/2016 01:28 PM Electronically Signed By:Keshia Patricia
--- NOTE | 2016-11-13 17:36 | ASDISCHSUM ---
Discharge Information Plan Status:SNF Medically Cleared to Leave: Discharge Date:11/13/2016 03:23 PM D/C [facility]/C Disposition:Home, Routine, Self-Care Projected Discharge Date:11/13/2016 03:23 PM Transportation at D/C:Wheelchair Van Discharge Delay Reason: Follow-Up Date:11/13/2016 03:23 PM Discharge Slot: Final Diagnosis: Placement Information Patient Contact Information Contact Name:SANJU Relationship:Daughter Address:[address] Work Phone: City:[place] Alternate Phone: [facility]/Zip Code:[place] [address] Email: Financial Information Financial Class:Medicare Advantage Plans Primary Plan Desc:[facility] [employer] [facility] Primary Plan Number:[id number] Secondary Plan Desc: Secondary Plan Number: Assessment Information [facility] CM Progress Note CM Note CM Note Notes: Spoke w/ JOSH Andino, states pt will need Cat scan f/u in 1 week, will put in [employer]. Kong at notified. Date Signed: 11/13/2016 10:23 AM Electronically Signed By:Keshia Patricia [facility] CM Progress Note CM Note CM Note Notes: [facility]. CM arranged transport through [employer], will fruit picker pt at 2:45. CM notified daughter Tiffanie . Date Signed: 11/13/2016 01:28 PM Electronically Signed By:Keshia Patricia Intervention Information Intervention Type:*IM-Signed Date of Service:11/13/2016 11:00 AM Patient Type:Inpatient Staff Member:Fauzia Vuong Hours: Discipline: Severity: Comment:
--- NOTE | 2016-11-14 03:25 | GDS ---
[f rep st] DISCHARGE SUMMARY DISCHARGE DIAGNOSES: 1. Severe sepsis secondary to Klebsiella bacteremia in the setting of complicated pyelonephritis. 2. Chronic atrial fibrillation. 3. Hypokalemia, resolved. 4. Chronic diastolic heart failure, stable. 5. Hypothyroidism. 6. Hyperlipidemia. 7. Obstructive sleep apnea. CONSULTANTS: 1. Dr. Kota Quispe, sampling expert. 2. Dr. Cullen Chaudhari, Infectious Disease. IMAGING STUDIES/PROCEDURES: 1. Abdomen CT November 06, 2016, showed left kidney lower pole pyelonephritis with phlegmon with derrick nephric inflammatory changes though no evidence of a drainable abscess or infarct. This was initial ly read as a renal cortical infarction with surrounding inflammation. After further review with Inf ectious Disease and Radiology, an addendum was dictated to read that this was more likely pyelonephr itis with phlegmon. 2. Echocardiogram November 07, 2016, showed a normal ejection fraction of 72%. Doppler evidence of d iastolic dysfunction. No wall motion abnormalities. No pericardial effusion or thrombus was noted. 3. PICC line insertion November 11, 2016. HISTORY: For details, please see the history and physical dated November 06, 2016. In brief, the bert sanchez is a 76-year-old female with a history of atrial fibrillation, diastolic heart failure and reac tive airway disease who has presented to the emergency department with nausea, vomiting, diarrhea an d chills. She was diagnosed with septic shock on arrival based on a lactate of 4. She did not requ kristyn pressors. She received IV fluid resuscitation and was treated with IV ceftriaxone. Blood cultu res and urine culture grew Klebsiella pneumonia which was sensitive to ceftriaxone. Repeat blood cu ltures were negative. A PICC line was placed and the plan is to continue IV antibiotic therapy thro [facility] November 28. At that point, she will follow up with infectious disease to determine indication for ongoing antibiotic treatment. She will have a repeat CT abdomen on November 26 prior to her I nfectious Disease appointment. Given her generalized weakness after her lengthy hospital course, [facility] team has recommended SNF rehab. DISPOSITION: Patient is discharged to [facility] facility for rehab in stable condition. FOLLOWUP: 1. Dr. Christian Carmichael, November 28, 2016. 2. CT scan November 26. 3. Primary care followup. 4. Weekly labs with results to infectious disease. DISCHARGE MEDICATIONS: Please see hereO for complete updated outpatient medication list. New medications include: Zofran 4 mg p.o. q.4 hours p.r.n., potassium 20 mEq p.o. daily, ceftriaxon e 2 g IV daily through November 28. Changed medications on discharge: Her morning Toprol dose was increased to 50 mg daily from 25 mg d aily for better rate control in the setting of atrial fibrillation. She will continue all other out patient medications as prescribed. /[id number]/MODL
== END 2016-11-13 15:23 | DRG 871 ==
LOC: EDUNIT# → F2N 20:32 → F3E 11-09 08:41
PROVIDERS: ADMIT Internal Medicine; ATTEND Internal Medicine
PROC: 02HV33Z Insertion of Infusion Device into Superior Vena Cava, Percutaneous Approach (ICD-10-PCS; principal; 2016-11-11)
CPT/HCPCS: 96365; 97116-GP; 97162-GP; 97166-GO; 97530-GP; 97535-GO; C1751; G8978-GP-CJ; G8979-GP-CI; G8987-GO-CJ; G8988-GO-CI; J0696; J1650; Q9967

== ENCOUNTER → 2016-11-26 | Outpatient (CLI) | payer OTHER ==
[~2016-11-26] MED LIST: IOPAMIDOL (ISOVUE-300) 100 ML BTL ONE
== END ==
LOC: FIMAGING 11:50
PROVIDERS: ATTEND Internal Medicine Infectious Disease
DX: R78.81 Bacteremia (principal); Z87.440 Personal history of urinary (tract) infections; R91.1 Solitary pulmonary nodule; K42.9 Umbilical hernia without obstruction or gangrene
CPT/HCPCS: 74160; Q9967

== ENCOUNTER → 2017-03-15 | Outpatient (CLI) | payer OTHER | LOC: FIMAGING 09:36 | PROVIDERS: ATTEND Physician Assistant Medical | DX: R91.8 Other nonspecific abnormal finding of lung field (principal); I77.810 Thoracic aortic ectasia; J47.9 Bronchiectasis, uncomplicated; I51.7 Cardiomegaly; I25.10 Atherosclerotic heart disease of native coronary artery without angina pectoris; J45.909 Unspecified asthma, uncomplicated ==

== ENCOUNTER 2017-09-05 11:08 | Inpatient (IN) | payer OTHER ==
--- NOTE | 2017-09-05 11:36 | EDPHY ---
H & P Time Seen by Provider: 09/05/17 11:36 HPI/ROS: CHIEF COMPLAINT: Abdominal pain weakness and diarrhea HISTORY OF PRESENT ILLNESS: This 77-year-old woman started feeling sick 2 days ago with chills. Yesterday she had diarrhea which is all water, and today she had 10 more episodes of watery diarrhea. Today it is associated with severe weakness and general malaise. She says she feels so weak she can't stand or walk. She feels dehydrated and unable to take in adequate oral fluids. Associated with some right-sided abdominal pain which is crampy. Not associated with dysuria or hematuria or other urinary symptoms. Abdominal pain does not radiate. REVIEW OF SYSTEMS: Eye: no change in vision ENT: no sore throat Cardiac: no chest pain or syncope Pulmonary: no cough or SOB Abdomen: HPI Musculoskeletal: Diffuse myalgias Skin: no rash Neuro: no headache Constitutional: Subjective fever and chills : no urinary symptoms A comprehensive 10 point review of systems is otherwise negative aside from elements mentioned in the history of present illness. PAST MEDICAL HISTORY: Includes AFib, thyroid, hypertension, asthma and sleep apnea. Hysterectomy. Social history: Nonsmoker General Appearance: Alert and conversant, cooperative. Eyes: No scleral icterus. ENT, Mouth: Dry mucous membranes Respiratory: Normal respiratory effort, breath sounds equal, lungs are clear to auscultation. Cardiovascular: Regular rate and rhythm. Gastrointestinal: Right upper and lower quadrant abdominal tenderness without rebound or guarding. Neurological: Alert, face symmetric, normal motor and sensory in extremities. Skin: Warm and dry, no rashes. Musculoskeletal: No peripheral edema. Psychiatric: Not agitated. Emergency Department course/MDM: Plan for IV fluids, labs to include CBC and chemistry, CT scanning discussed and consented with abdominal tenderness. Urinalysis and diarrhea sent for GI pathogen panel. 1340: Positive urinalysis, admission for dehydration UTI and tachycardia. 1416: CT pyelonephritis on the right side per Radiology. Ceftriaxone 1 g IV, IV fluids. Smoking Status: Former smoker Constitutional: Initial Vital Signs Temperature (C) 37.3 C 09/05/17 11:13 Heart Rate 109 H 09/05/17 11:13 Respiratory Rate 16 09/05/17 11:13 Blood Pressure 133/89 H 09/05/17 11:13 O2 Sat (%) 97 09/05/17 11:13 O2 Delivery Mode Room Air Allergies/Adverse Reactions: No Known Allergies Allergy (Verified 09/05/17 12:05) Home Medications: Medication Instructions Recorded Acetaminophen [Tylenol ES 500 mg 1,000 mg PO BID 11/06/16 (*)] Apixaban [Eliquis] 5 mg PO BID 11/06/16 Cholecalciferol Vit D3 [Vitamin D3 1,000 units PO DAILY 11/06/16 (*)] Diltiazem HCl [Diltiazem 24Hr Cd] 360 mg PO DAILY 11/06/16 Estradiol [Estrace Vaginal (*)] 42.5 gm VG MOTH 11/06/16 Fluticasone/Salmeterol [ADVAIR HFA 2 puffs IH BID 11/06/16 230-21 MCG INHALER] Furosemide [Lasix 40 MG (*)] 80 mg PO DAILY 11/06/16 Herbals/Supplements -Info Only 1 ea PO DAILY 11/06/16 Montelukast Sodium [Singulair 10 10 mg PO HS 11/06/16 mg (*)] SIMVASTATIN 10 mg PO HS 11/06/16 guaiFENesin/DEXTROMETHORPHAN 1 tab PO BID 11/06/16 [Mucinex Dm ER 1,200-60 mg Tab] Metoprolol Succinate Xr [Toprol Xl 50 mg PO DAILY #30 tab 11/13/16 50 mg (*)] Budesonide [Rhinocort Allergy] 2 sprays NS BID 09/05/17 Docusate Sodium [Colace 100 MG (*)] 100 mg PO BID PRN 09/05/17 Levothyroxine [Synthroid 100 mcg 100 mcg PO DAILY06 09/05/17 (*)] Losartan Potassium [Cozaar 25 mg 25 mg PO DAILY 09/05/17 (*)] Meloxicam 15 mg PO MWF 09/05/17 Metoprolol Succinate Xr [Toprol Xl 100 mg PO HS 09/05/17 100 mg (*)] Potassium Cl [Klor-Con] 30 meq PO DAILY 09/05/17 Propylene Glycol/Peg 400 [Systane 1 drop EACHEYE DAILY 09/05/17 0.3-0.4% Eye Drops] Psyllium Husk (with Sugar) 1 each PO DAILY PRN 09/05/17 [Metamucil Packet] Medical Decision Making - Diagnostics EKG Interpretation: 12-lead EKG interpreted by me; official reading is in trace master. My interpretation is AFib rate 90, no ischemic changes. Imaging Results: Imaging Impressions Abdomen CT 09/05/17 12:11 Impression: 1. Right-sided pyelonephritis. 2. No CT evidence of appendicitis, abscess or bowel obstruction. 3. Stable hypodense lesion right adnexa since October,. This actually measures fat density and could represent small teratoma or dermoid. Findings discussed with Arnaldo Moreno M.D. at 14:07 hour, 09/05/2017. Imaging: Discussed imaging studies w/ aircraft dispatcher Radiologist Differential Diagnosis: Differential for weakness and diarrhea considered including but not limited to dehydration, metabolic abnormality, UTI, acute surgical abdominal process. Consult/Admit Bed Type: [place] [id number] - Data Points Laboratory Results: Laboratory Results 09/05/17 11:10 09/05/17 11:10 09/05/17 09/05/17 09/05/17 13:20 11:10 11:10 WBC 10.19 10^3/uL H 10^3/uL (3.80-9.50) RBC 4.79 10^6/uL 10^6/uL (4.18-5.33) Hgb 15.9 g/dL g/dL (12.6-16.3) Hct 45.2 % % (38.0-47.0) MCV 94.4 fL fL (81.5-99.8) MCH 33.2 pg pg (27.9-34.1) MCHC 35.2 g/dL g/dL (32.4-36.7) RDW 12.2 % % (11.5-15.2) Plt Count 219 10^3/uL 10^3/uL (150-400) MPV 9.7 fL fL (8.7-11.7) Neut % (Auto) 71.1 % % (39.3-74.2) Lymph % (Auto) 16.7 % % (15.0-45.0) [place] % (Auto) 11.3 % % (4.5-13.0) Eos % (Auto) 0.2 % L % (0.6-7.6) Baso % (Auto) 0.3 % % (0.3-1.7) Nucleat RBC Rel Count 0.0 % % (0.0-0.2) Absolute Neuts (auto) 7.25 10^3/uL H 10^3/uL (1.70-6.50) Absolute Lymphs (auto) 1.70 10^3/uL 10^3/uL (1.00-3.00) Absolute Monos (auto) 1.15 10^3/uL H 10^3/uL (0.30-0.80) Absolute Eos (auto) 0.02 10^3/uL L 10^3/uL (0.03-0.40) Absolute Basos (auto) 0.03 10^3/uL 10^3/uL (0.02-0.10) Absolute Nucleated RBC 0.00 10^3/uL 10^3/uL (0-0.01) Immature Gran % 0.4 % % (0.0-1.1) Immature Gran # 0.04 10^3/uL 10^3/uL (0.00-0.10) Sodium 139 mEq/L mEq/L (135-145) Potassium 3.5 mEq/L mEq/L (3.3-5.0) Chloride 106 mEq/L mEq/L (97-110) Carbon Dioxide 21 mEq/l L mEq/l (22-31) Anion Gap 12 mEq/L mEq/L (8-16) BUN 15 mg/dL mg/dL (7-23) Creatinine 0.9 mg/dL mg/dL (0.6-1.0) Estimated GFR 60 Glucose 100 mg/dL mg/dL (70-100) Calcium 9.3 mg/dL mg/dL (8.5-10.4) Total Bilirubin 1.1 mg/dL mg/dL (0.1-1.4) AST 20 IU/L IU/L (14-46) ALT 33 IU/L IU/L (9-52) Alkaline Phosphatase 95 IU/L IU/L (38-126) Total Protein 6.8 g/dL g/dL (6.3-8.2) Albumin 3.9 g/dL g/dL (3.5-5.0) Urine Color YELLOW Urine Appearance MODERATELY TURBID Urine pH 6.0 (5.0-7.5) Ur Specific [place] 1.006 (1.002-1.030) Urine Protein 1+ H (NEGATIVE) Urine Ketones NEGATIVE (NEGATIVE) Urine Blood 1+ H (NEGATIVE) Urine Nitrate POSITIVE H (NEGATIVE) Urine Bilirubin NEGATIVE (NEGATIVE) Urine Urobilinogen NEGATIVE EU EU (0.2-1.0) Ur Leukocyte Esterase 3+ H (NEGATIVE) Urine RBC 5-10 /hpf H /hpf (0-3) Urine WBC 50-182 /hpf H /hpf (0-3) Ur Epithelial Cells 3+ /lpf H /lpf (NONE-1+) Urine Bacteria 4+ /hpf H /hpf (NONE SEEN) Hyaline Casts 1-5 /lpf /lpf (0-1) Urine Mucus TRACE /lpf /lpf (NONE-1+) Urine Glucose NEGATIVE (NEGATIVE) Medications Given: Discontinued Medications Sodium Chloride (Ns) 1,000 mls @ 0 mls/hr IV EDNOW ONE; Wide Open PRN Reason: Protocol Stop: 09/05/17 11:51 Last Admin: 09/05/17 12:38 Dose: 1,000 mls Ceftriaxone Sodium/Dextrose (Rocephin 1 Gm (Premix)) 50 mls @ 100 mls/hr IV EDNOW ONE PRN Reason: Protocol Stop: 09/05/17 14:30 Last Admin: 09/05/17 14:17 Dose: 50 mls Departure - Departure Disposition: [facility] Inpatient Acute Clinical Impression: Pyelonephritis, acute Urinary tract infection Qualifiers: Urinary tract infection type: acute cystitis Hematuria presence: without hematuria Qualified Code(s): N30.00 - Acute cystitis without hematuria Condition: Good
[2017-09-05 11:40] LABS: PLATELET COUNT 219 10^3/uL (150-400)
[2017-09-05] MEDS ORDERED: NS 1,000 ML IV ONE ×2 (11:50→14:16)
--- NOTE | 2017-09-05 11:56 | CPEKG ---
Heart Rate: 90 RR Interval: 667 QRSD Interval: 100 QT Interval: 376 QTC Interval: 460 QRS [place]: 9 T Wave [place]: -53 EKG Severity - ABNORMAL ECG - EKG Impression: ATRIAL FIBRILLATION, V-RATE 73-113 Electronically Signed By: Arnaldo Moreno 05-Sep-2017 11:58:07
[2017-09-05] MEDS ORDERED: IOPAMIDOL (ISOVUE-300) 100 ML BTL ONE (12:42)
[2017-09-05] MEDS ORDERED: DOCUSATE SODIUM 100 MG CAP PO PRN (14:22)
[2017-09-05] MEDS ORDERED: PSYLLIUM METAMUCIL 1 PKT PO PRN (14:22)
[2017-09-05] MEDS ORDERED: ONDANSETRON 4 MG/2 ML VIAL IVP PRN (14:26)
[2017-09-05] MEDS ORDERED: OXYCODONE/APAP 5/325 TAB PO PRN (14:26)
[2017-09-05] MEDS ORDERED: ONDANSETRON DISINTEGRATING 4 MG TAB PO PRN (14:26)
[2017-09-05] MEDS ORDERED: oxyCODONE IR 5 MG TAB PO PRN (14:26)
--- NOTE | 2017-09-05 15:57 | PDGENHP ---
History and Physical - Chief Complaint fever, chills - History of Present Illness This 77-year-old woman started feeling sick 2 days ago with chills. Yesterday she had diarrhea which is all water, and today she had 10 more episodes of watery diarrhea. Today it is associated with severe weakness and general malaise. She says she feels so weak she can't stand or walk. She feels dehydrated and unable to take in adequate oral fluids. Associated with some right-sided abdominal pain which is crampy. Not associated with dysuria or hematuria or other urinary symptoms. Abdominal pain does not radiate. In the ED she has bacteriuria and CT ad c/w right sided pyelo. Interestingly she does not have CVA tenderness. She does have a a dry cough, but no increased O2 needs. She has asthma as baseline. She has not used her inhaler today PAST MEDICAL/SURGICAL HISTORY: Includes AFib, thyroid, hypertension, asthma and sleep apnea. Hysterectomy. Social history: Nonsmoker FMHx: non contributory History Information - Allergies/Home Medication List Allergies/Adverse Reactions: No Known Allergies Allergy (Verified 09/05/17 12:05) Home Medications: Acetaminophen [Tylenol ES 500 mg (*)] 1,000 mg PO BID 11/06/16 [Last Taken Unknown] Apixaban [Eliquis] 5 mg PO BID 11/06/16 [Last Taken Unknown] Cholecalciferol Vit D3 [Vitamin D3 (*)] 1,000 units PO DAILY 11/06/16 [Last Taken Unknown] Diltiazem HCl [Diltiazem 24Hr Cd] 360 mg PO DAILY 11/06/16 [Last Taken Unknown] Estradiol [Estrace Vaginal (*)] 42.5 gm VG MOTH 11/06/16 [Last Taken Unknown] Fluticasone/Salmeterol [ADVAIR HFA 230-21 MCG INHALER] 2 puffs IH BID 11/06/16 [ Last Taken Unknown] Furosemide [Lasix 40 MG (*)] 80 mg PO DAILY 11/06/16 [Last Taken Unknown] Herbals/Supplements -Info Only 1 ea PO DAILY 11/06/16 [Last Taken Unknown] Montelukast Sodium [Singulair 10 mg (*)] 10 mg PO HS 11/06/16 [Last Taken Unknown] SIMVASTATIN 10 mg PO HS 11/06/16 [Last Taken Unknown] guaiFENesin/DEXTROMETHORPHAN [Mucinex Dm ER 1,200-60 mg Tab] 1 tab PO BID [Last Taken Unknown] Budesonide [Rhinocort Allergy] 2 sprays NS BID 09/05/17 [Last Taken Unknown] Docusate Sodium [Colace 100 MG (*)] 100 mg PO BID PRN 09/05/17 [Last Taken Unknown] Levothyroxine [Synthroid 100 mcg (*)] 100 mcg PO DAILY06 09/05/17 [Last Taken Unknown] Losartan Potassium [Cozaar 25 mg (*)] 25 mg PO DAILY 09/05/17 [Last Taken Unknown] Meloxicam 15 mg PO MWF 09/05/17 [Last Taken Unknown] Metoprolol Succinate Xr [Toprol Xl 100 mg (*)] 100 mg PO HS 09/05/17 [Last Taken Unknown] Potassium Cl [Klor-Con] 30 meq PO DAILY 09/05/17 [Last Taken Unknown] Propylene Glycol/Peg 400 [Systane 0.3-0.4% Eye Drops] 1 drop EACHEYE DAILY 09/05 [Last Taken Unknown] Psyllium Husk (with Sugar) [Metamucil Packet] 1 each PO DAILY PRN 09/05/17 [ Last Taken Unknown] I have personally reviewed and updated: medical history, social history - Social History Smoking Status: Former smoker Review of Systems Review of Systems: ROS: 10pt was reviewed & negative except for what was stated in HPI & below Physical Exam Physical Exam: Temp Pulse Resp BP Pulse Ox 37.5 C 78 18 118/75 95 09/05/17 15:28 09/05/17 15:28 09/05/17 15:28 09/05/17 15:28 09/05/17 15:28 Constitutional: no apparent distress Eyes: PERRL, EOMI Ears, Nose, Mouth, Throat: moist mucous membranes, hearing normal Cardiovascular: regular rate and rhythym, No edema Respiratory: no respiratory distress, reduced air movement, expiratory wheeze Gastrointestinal: normoactive bowel sounds, soft, non-tender abdomen Skin: warm Musculoskeletal: generalized weakness Neurologic: AAOx3 Psychiatric: interacting appropriately, not anxious, not encephalopathic Lab Data & Imaging Review 09/05/17 11:10 09/05/17 11:10 WBC 10.19 10^3/uL (3.80-9.50) H 09/05/17 11:10 RBC 4.79 10^6/uL (4.18-5.33) 09/05/17 11:10 Hgb 15.9 g/dL (12.6-16.3) 09/05/17 11:10 Hct 45.2 % (38.0-47.0) 09/05/17 11:10 MCV 94.4 fL (81.5-99.8) 09/05/17 11:10 MCH 33.2 pg (27.9-34.1) 09/05/17 11:10 MCHC 35.2 g/dL (32.4-36.7) 09/05/17 11:10 RDW 12.2 % (11.5-15.2) 09/05/17 11:10 Plt Count 219 10^3/uL (150-400) 09/05/17 11:10 MPV 9.7 fL (8.7-11.7) 09/05/17 11:10 Neut % (Auto) 71.1 % (39.3-74.2) 09/05/17 11:10 Lymph % (Auto) 16.7 % (15.0-45.0) 09/05/17 11:10 [place] % (Auto) 11.3 % (4.5-13.0) 09/05/17 11:10 Eos % (Auto) 0.2 % (0.6-7.6) L 09/05/17 11:10 Baso % (Auto) 0.3 % (0.3-1.7) 09/05/17 11:10 Nucleat RBC Rel Count 0.0 % (0.0-0.2) 09/05/17 11:10 Absolute Neuts (auto) 7.25 10^3/uL (1.70-6.50) H 09/05/17 11:10 Absolute Lymphs (auto) 1.70 10^3/uL (1.00-3.00) 09/05/17 11:10 Absolute Monos (auto) 1.15 10^3/uL (0.30-0.80) H 09/05/17 11:10 Absolute Eos (auto) 0.02 10^3/uL (0.03-0.40) L 09/05/17 11:10 Absolute Basos (auto) 0.03 10^3/uL (0.02-0.10) 09/05/17 11:10 Absolute Nucleated RBC 0.00 10^3/uL (0-0.01) 09/05/17 11:10 Immature Gran % 0.4 % (0.0-1.1) 09/05/17 11:10 Immature Gran # 0.04 10^3/uL (0.00-0.10) 09/05/17 11:10 Sodium 139 mEq/L (135-145) 09/05/17 11:10 Potassium 3.5 mEq/L (3.3-5.0) 09/05/17 11:10 Chloride 106 mEq/L (97-110) 09/05/17 11:10 Carbon Dioxide 21 mEq/l (22-31) L 09/05/17 11:10 Anion Gap 12 mEq/L (8-16) 09/05/17 11:10 BUN 15 mg/dL (7-23) 09/05/17 11:10 Creatinine 0.9 mg/dL (0.6-1.0) 09/05/17 11:10 Estimated GFR 60 09/05/17 11:10 Glucose 100 mg/dL (70-100) 09/05/17 11:10 Calcium 9.3 mg/dL (8.5-10.4) 09/05/17 11:10 Total Bilirubin 1.1 mg/dL (0.1-1.4) 09/05/17 11:10 AST 20 IU/L (14-46) 09/05/17 11:10 ALT 33 IU/L (9-52) 09/05/17 11:10 Alkaline Phosphatase 95 IU/L (38-126) 09/05/17 11:10 Total Protein 6.8 g/dL (6.3-8.2) 09/05/17 11:10 Albumin 3.9 g/dL (3.5-5.0) 09/05/17 11:10 Urine Color YELLOW 09/05/17 13:20 Urine Appearance MODERATELY TURBID 09/05/17 13:20 Urine pH 6.0 (5.0-7.5) 09/05/17 13:20 Ur Specific [place] 1.006 (1.002-1.030) 09/05/17 13:20 Urine Protein 1+ (NEGATIVE) H 09/05/17 13:20 Urine Ketones NEGATIVE (NEGATIVE) 09/05/17 13:20 Urine Blood 1+ (NEGATIVE) H 09/05/17 13:20 Urine Nitrate POSITIVE (NEGATIVE) H 09/05/17 13:20 Urine Bilirubin NEGATIVE (NEGATIVE) 09/05/17 13:20 Urine Urobilinogen NEGATIVE EU (0.2-1.0) 09/05/17 13:20 Ur Leukocyte Esterase 3+ (NEGATIVE) H 09/05/17 13:20 Urine RBC 5-10 /hpf (0-3) H 09/05/17 13:20 Urine WBC 50-182 /hpf (0-3) H 09/05/17 13:20 Ur Epithelial Cells 3+ /lpf (NONE-1+) H 09/05/17 13:20 Urine Bacteria 4+ /hpf (NONE SEEN) H 09/05/17 13:20 Hyaline Casts 1-5 /lpf (0-1) 09/05/17 13:20 Urine Mucus TRACE /lpf (NONE-1+) 09/05/17 13:20 Urine Glucose NEGATIVE (NEGATIVE) 09/05/17 13:20 Assessment & Plan Assessment: #Acute cystitis with e/o of right sided pyelonephritis on imaging -No Flank pain or CVA tenderness #Dehydration #cough, chronic asthma #Weakness and Deconditioning #Diarrhea -PCR pending #Afib, chronic #HTN Plan: cont Rocephin Hold off on additional IVF as she has already received 2 L in the ER PCR-GI pending Hold Lasix today Blood culture Hold BP meds today PT/OT lives in independent living DNR, confirmed at bedside
[2017-09-05] MEDS ORDERED: ALBUTEROL 3 ML DEYVIAL IH PRN (15:58)
--- NOTE | 2017-09-05 16:29 | PDMN ---
Medical Necessity Medical necessity: MCG; M300 UTi- A-2 days: acute cystitis with evidence of R sided pyelonephritis on CT- pt with chills, diarrhea, weakness , malaise, and crampy abd pain. dehydration,
[2017-09-05] MEDS: MONTELUKAST SODIUM 10 MG TAB PO SCH (20:50)
[2017-09-05] MEDS: APIXABAN 5 MG TAB PO SCH (20:50)
[2017-09-05] MEDS: DEXTROMETHORPHAN PO SCH (20:51)
[2017-09-05] MEDS: ESTRADIOL 42.5 GM CRTUBE VG SCH (20:51)
[2017-09-05] MEDS: GUAIFENESIN PO SCH (20:51)
[2017-09-05] MEDS: FLUTICASONE NASAL 120 SPRAYS/16 GM MDI EACHNARE SCH (20:51)
[2017-09-05] MEDS: METOPROLOL SUCCINATE XR 50 MG TAB PO SCH (20:56)
[2017-09-05] MEDS: Advair Hfa 230-21 Mcg Inhaler IH SCH (20:57)
[2017-09-05] MEDS ORDERED: METOPROLOL SUCCINATE XR 100 MG TAB PO SCH (21:00)
[2017-09-05] MEDS: ACETAMINOPHEN 500 MG TAB PO SCH (21:02)
[2017-09-06 04:45] LABS: PLATELET COUNT 182 10^3/uL (150-400)
[2017-09-06] MEDS: LEVOTHYROXINE 100 MCG TAB PO SCH (05:41)
[2017-09-06] MEDS: ACETAMINOPHEN 500 MG TAB PO SCH ×2 (08:47→20:20)
[2017-09-06] MEDS: POTASSIUM CL 10 MEQ TAB PO SCH (08:47)
[2017-09-06] MEDS: APIXABAN 5 MG TAB PO SCH ×2 (08:49→20:20)
[2017-09-06] MEDS: CHOLECALCIFEROL VIT D3 1,000 UNITS TAB PO SCH (08:49)
[2017-09-06] MEDS: Advair Hfa 230-21 Mcg Inhaler IH SCH ×2 (08:54→21:08)
[2017-09-06] MEDS: GUAIFENESIN PO SCH ×2 (08:55→20:26)
[2017-09-06] MEDS: DEXTROMETHORPHAN PO SCH ×2 (08:55→20:26)
[2017-09-06] MEDS: METOPROLOL SUCCINATE XR 50 MG TAB PO SCH ×2 (08:55→20:21)
[2017-09-06] MEDS: FLUTICASONE NASAL 120 SPRAYS/16 GM MDI EACHNARE SCH ×2 (08:56→22:52)
[2017-09-06] MEDS: DILTIAZEM HCL 360 MG PO SCH (08:56)
[2017-09-06] MEDS ORDERED: NON-FORMULARY NEW DRUG (Propylene Glycol/Peg 400 [Systane 0.3-0.4% Eye Drops] 1 DROP) EACHEYE SCH (09:00)
[2017-09-06] MEDS ORDERED: PRAVASTATIN SODIUM 20 MG TAB PO SCH ×2 (09:00→21:00)
[2017-09-06] MEDS ORDERED: PROTOCOL POTASSIUM 1 DOSE MISC PRN (11:09)
--- NOTE | 2017-09-06 11:11 | HOSPPROG ---
Hospitalist Progress Note Assessment/Plan: * Pyelonephritis -IV Rocephin -await urine culture * Diarrhea -stool PCR pending * Urinary retention -start Flomax -follow bladder scans - may need straight cath if very high * Afib -continue metoprolol, diltiazem -Eliquis for CVA prevention * Obesity BMI 35 with BELLO * Asthma -advair, singulair * HTN -holding med for decreased BP -thinks she is taking too much lasix - consider reduce dose at discharge Subjective: Better Objective: Vital Signs Temp Pulse Resp BP Pulse Ox 36.6 C 112 H 17 107/81 H 95 09/06/17 08:51 09/06/17 08:55 09/06/17 08:51 09/06/17 08:55 09/06/17 08:51 Microbiology 09/06/17 09:20 Gastrointestinal Tract Panel (PCR) - Final Stool No Organism Detected Laboratory Results 09/06/17 04:13 09/06/17 04:13 09/05/17 09/06/17 09/07/17 05:59 05:59 05:59 Intake Total 2800 400 Output Total [address] abd - right pyelonephritis EKG viewed by me, my personal interpretation is - afib, rate controlled - Physical Exam Constitutional: no apparent distress, appears nourished, not in pain Cardiovascular: regular rate and rhythym, no murmur, rub, or gallop Respiratory: no respiratory distress, no rales or rhonchi, clear to auscultation Gastrointestinal: normoactive bowel sounds, soft, non-tender abdomen, no palpable masses Skin: no rashes or abrasions, no fluctuance, no induration Neurologic: AAOx3, sensation intact bilaterally Psychiatric: interacting appropriately, not anxious, not encephalopathic, thought process linear ICD10 Worksheet Patient Problems: Problems Problem Status Onset Pyelonephritis, acute Acute Urinary tract infection Acute Encephalopathy acute Acute Renal infarct Acute Septic shock Acute
[2017-09-06] MEDS: TAMSULOSIN HCL 0.4 MG CAP PO SCH (11:45)
[2017-09-06] MEDS: TEARS/DEXTRAN 70/HYPROMELLOSE 15 ML OPHT.BTL EACHEYE SCH (11:46)
--- NOTE | 2017-09-06 14:42 | ASMTCMCOM ---
CM Note CM Note Notes: CM met with Pt.. Pt is a 77 y/o female who is hospitalized due to acute cystitis. She reports that last year she had another episode of this, was placed in ICU and needed to stay for 3 weeks in [facility] before returning to her apt. Pt is in good spirits, very talkative with somewhat loose associations. Her 2 1/2 y/a. She lives at [facility] in their independent apartments and has had no extra services. It is probable she will be able to return to independent; CM will follow. D/C Plan: Probable independent. Date Signed: 09/06/2017 02:41 PM Electronically Signed By:Seema Gill
[2017-09-06] MEDS ORDERED: POTASSIUM CL 10 MEQ TAB PO ONE (20:05)
[2017-09-06] MEDS: MONTELUKAST SODIUM 10 MG TAB PO SCH (20:21)
[2017-09-06] MEDS: ESTRADIOL 42.5 GM CRTUBE VG SCH (20:23)
[2017-09-06] MEDS: CEPACOL LOZENGE PO PRN (22:55)
[2017-09-07] MEDS: CEPACOL LOZENGE PO PRN (03:49)
[2017-09-07] MEDS: LEVOTHYROXINE 100 MCG TAB PO SCH (06:18)
[2017-09-07] MEDS: Advair Hfa 230-21 Mcg Inhaler IH SCH (08:23)
[2017-09-07] MEDS ORDERED: POTASSIUM CL 10 MEQ TAB PO ONE (08:49)
[2017-09-07 08:59] VITALS: BP 115/71
[2017-09-07] MEDS: TAMSULOSIN HCL 0.4 MG CAP PO SCH (09:04)
[2017-09-07] MEDS: CHOLECALCIFEROL VIT D3 1,000 UNITS TAB PO SCH (09:04)
[2017-09-07] MEDS: APIXABAN 5 MG TAB PO SCH (09:05)
[2017-09-07] MEDS: METOPROLOL SUCCINATE XR 50 MG TAB PO SCH (09:05)
[2017-09-07] MEDS: ACETAMINOPHEN 500 MG TAB PO SCH (09:05)
[2017-09-07] MEDS: TEARS/DEXTRAN 70/HYPROMELLOSE 15 ML OPHT.BTL EACHEYE SCH (09:08)
[2017-09-07] MEDS: POTASSIUM CL 10 MEQ TAB PO SCH (09:08)
[2017-09-07] MEDS: DEXTROMETHORPHAN PO SCH (09:09)
[2017-09-07] MEDS: FLUTICASONE NASAL 120 SPRAYS/16 GM MDI EACHNARE SCH (09:09)
[2017-09-07] MEDS: GUAIFENESIN PO SCH (09:09)
[2017-09-07] MEDS: DILTIAZEM HCL 360 MG PO SCH (09:12)
[2017-09-07] MEDS ORDERED: POTASSIUM CL 10 MEQ TAB ONE (09:21)
--- NOTE | 2017-09-07 11:14 | PDDCSUM ---
Discharge Summary Discharge Summary: Date of Admission: September 05, 2017 Date of Discharge: September 07, 2017 Discharge Diagnoses: Acute pyelonephritis Acute diarrhea Urinary retention Atrial fibrillation Asthma Hypertension Admission Diagnoses: Acute cystitis and pyelonephritis Dehydration Cough, chronic asthma Weakness and deconditioning Diarrhea Atrial fibrillation Hypertension Consultants: None. Hospital Course: The patient is a 77-year-old female who presented with 2 days of chills, malaise and generalized weakness. She also had some right-sided abdominal pain She was also complaining of watery diarrhea for about 1 month prior to admission. She was found to have right-sided pyelonephritis and an acute UTI. She has had similar episodes about twice in the past. Patient was admitted and treated with IV ceftriaxone. Urine culture grew Klebsiella which was pansensitive. Patient was feeling stronger after being in the hospital for 2 days. She was able to ambulate and back to her baseline activity status at the time discharge. Physical Exam: General: The patient is an elderly female who is alert and in no acute distress. HEENT: normocephalic, extraocular movements intact, conjunctivae clear, no lesions on face. Mucous membranes moist. Neck: trachea midline, no visible masses, no external lesions. Abd: soft and nondistended. Musculoskeletal: Normal muscle tone and bulk Neuro: cranial nerves II XII grossly intact. Intact gross motor and sensory function. Psych: appropriate mood/affect. Skin: +mild pallor. Condition: Stable Discharged to: Home Pertinent tests/labs/imaging: CT Abd/pelv w/ IV contrast: 1. Right-sided pyelonephritis. 2. No CT evidence of appendicitis, abscess or bowel obstruction. 3. Stable hypodense lesion right adnexa since October,. This actually measures fat density and could represent small teratoma or dermoid. Medications: Please see med rec form. Bactrim DS 1 tab p.o. Twice daily for 10 days. Special instructions: Return to hospital if symptoms recur or worsen. Follow up: Follow up with PCP in 1 week. > 30 minutes of total time was spent on counseling and coordination of care for this patient's discharge.
[2017-09-07] MEDS ORDERED: PNEUMOC 13-VAL CONJ-DIP CRM/PF 0.5 ML SYR IM ONE (11:55)
--- NOTE | 2017-09-07 13:25 | ASMTLACE ---
LACE Length of stay for Answers: 2 days current admission Acuity / Level of Answers: Yes Care: Did the patient have an inpatient admission? Comorbidities - select Answers: Chronic pulmonary disease all that apply # of Emergency department Answers: 1-2 visits in the last 6 months Score: 8 Date Signed: 09/07/2017 01:24 PM Electronically Signed By:Keshia Patricia RN
--- NOTE | 2017-09-07 13:27 | ASMTCMCOM ---
CM Note CM Note Notes: Spoke w/RN and pt, she is discharging independent back to [place] but she needs a ride home. CM called and they are arranging David to come and pick her up at 2pm. DC Plan: Independent Date Signed: 09/07/2017 01:27 PM Electronically Signed By:Keshia Patricia RN
== END 2017-09-07 14:14 | disposition home or self-care (01) | DRG 690 ==
LOC: EDUNIT# → F1N 15:35
PROVIDERS: ADMIT Family Medicine; ATTEND Family Medicine
DX: N10 Acute pyelonephritis (principal); B96.1 Klebsiella pneumoniae [K. pneumoniae] as the cause of diseases classified elsewhere; R19.7 Diarrhea, unspecified; R33.9 Retention of urine, unspecified; I48.91 Unspecified atrial fibrillation; J45.909 Unspecified asthma, uncomplicated; I10 Essential (primary) hypertension; E86.0 Dehydration; G47.33 Obstructive sleep apnea (adult) (pediatric); E66.9 Obesity, unspecified; Z68.35 Body mass index [BMI] 35.0-35.9, adult; Z23 Encounter for immunization
CPT/HCPCS: 96374; 97161-GP; G0009; G8978-GP-CI; G8979-GP-CI; G8980-GP-CI; J0696; Q9967

== ENCOUNTER → 2017-12-29 | Outpatient (CLI) | payer OTHER | LOC: FIMAGING 11:50 | PROVIDERS: ATTEND Internal Medicine Critical Care Medicine | DX: J45.909 Unspecified asthma, uncomplicated (principal); R91.1 Solitary pulmonary nodule; I25.10 Atherosclerotic heart disease of native coronary artery without angina pectoris ==

== ENCOUNTER 2018-02-14 15:42 | Emergency (ER) | payer OTHER ==
--- NOTE | 2018-02-14 16:01 | EDPHY ---
H & P Stated Complaint: constipation Time Seen by Provider: 02/14/18 16:00 - Personal History Current Tetanus/Diphtheria Vaccine: Yes Current Tetanus Diphtheria and Acellular Pertussis (TDAP): Yes - Medical/Surgical History Hx Asthma: Yes Hx Chronic Respiratory Disease: No Hx Diabetes: No Hx Cardiac Disease: Yes Hx Renal Disease: No Hx Cirrhosis: No Hx Alcoholism: No Hx HIV/AIDS: No Hx Splenectomy or Spleen Trauma: No Other PMH: Afib, Hypothyroidism, hypertension, asthma, sleep apnea. hysterectomy, arthritis - Social History Smoking Status: Former smoker Constitutional: Initial Vital Signs Temperature (C) 36.7 C 02/14/18 15:53 Heart Rate 81 02/14/18 15:53 Respiratory Rate 16 02/14/18 15:53 Blood Pressure 116/79 02/14/18 15:53 O2 Sat (%) 95 02/14/18 15:53 O2 Delivery Mode Room Air Allergies/Adverse Reactions: No Known Allergies Allergy (Verified 02/14/18 15:48) Home Medications: Medication Instructions Recorded Acetaminophen [Tylenol ES 500 mg 1,000 mg PO BID 11/06/16 (*)] Apixaban [Eliquis] 5 mg PO BID 11/06/16 Diltiazem HCl [Diltiazem 24Hr Cd] 360 mg PO DAILY 11/06/16 Estradiol [Estrace Vaginal (*)] 42.5 gm VG MOTH 11/06/16 Fluticasone/Salmeterol [ADVAIR HFA 2 puffs IH BID 11/06/16 230-21 MCG INHALER] Furosemide [Lasix 40 MG (*)] 80 mg PO DAILY 11/06/16 Montelukast Sodium [Singulair 10 10 mg PO HS 11/06/16 mg (*)] SIMVASTATIN 10 mg PO HS 11/06/16 Metoprolol Succinate Xr [Toprol Xl 50 mg PO DAILY #30 tab 11/13/16 50 mg (*)] Budesonide [Rhinocort Allergy] 2 sprays NS BID 09/05/17 Levothyroxine [Synthroid 100 mcg 100 mcg PO DAILY06 09/05/17 (*)] Losartan Potassium [Cozaar 25 mg 25 mg PO DAILY 09/05/17 (*)] Metoprolol Succinate Xr [Toprol Xl 100 mg PO HS 09/05/17 100 mg (*)] Potassium Cl [Klor-Con 10 meq (RX)] 30 meq PO DAILY 09/05/17 Propylene Glycol/Peg 400 [SYSTANE 1 drop EACHEYE DAILY 09/05/17 0.3-0.4% EYE DROPS] Ipratropium 02/14/18 Ranitidine HCl 02/14/18 Spironolactone 02/14/18 Medical Decision Making - Diagnostics Imaging Results: Imaging Impressions Abdomen CT 02/14/18 16:33 Impression: 1. Interval resolution of right-sided pyelonephritis. 2. No CT evidence of appendicitis, abscess or bowel obstruction. 3. Mild constipation. 4. Stable hypodense lesion right adnexa possibly representing dermoid cyst. 5. Moderate facet hypertrophy with possible disk bulge at L2-L3 and spinal as well as neuroforaminal stenoses. If indicated, consider correlation with MRI as clinically directed. Findings discussed with Cullen Arzola MD at 17:34 hour, 02/14/2018. Imaging: Discussed imaging studies w/ alpine patroller Radiologist, I viewed and interpreted images myself ED Course/Re-evaluation: CHIEF COMPLAINT: No bowel movement x3 days HISTORY OF PRESENT ILLNESS: The patient is an anticoagulated 78 y/o female with a history of atrial fibrillation, microscopic colitis, and constipation complaining of no bowel movement for the last three days. She has associated upper abdominal discomfort that she describes as a "dull ache," nausea, decreased appetite, and no flatulence. She has been taking Miralax without improvement. She believes she is constipated as she had similar symptoms previously that were relieved after a bowel movement. She says, "there's a lot of hard stool in there" currently. She saw her PCP today and was given a suppository that had no effect. No vomiting, fever, urinary symptoms. REVIEW OF SYSTEMS: A comprehensive 10 system review of systems is otherwise negative aside from elements mentioned in the history of present illness and medical decision making. PHYSICAL EXAM: HR, BP, O2 Sat, RR. Temp noted General Appearance: Alert, well hydrated, appropriate, and non-toxic appearing. Head: Atraumatic without scalp tenderness or obvious injury Eyes: Pupils equal, round, reactive to light and accommodation, EOMI, no trauma , no injection. Nose: Atraumatic, no rhinorrhea, clear. Throat: Mucus membranes moist. Neck: Supple, nontender, no lymphadenopathy. Respiratory: No retractions, no distress, no wheezes, and no accessory muscle use. Lungs are clear to auscultation bilaterally. Cardiovascular: Regular rate and rhythm, no murmurs, rubs, or gallops. Good capillary refill all extremities. Gastrointestinal: Abdomen is soft, mild diffuse tenderness, mild distension, no masses, no rebound, no guarding, no peritoneal signs. Musculoskeletal: Normal active ROM of all extremities, atraumatic. Neurological: Alert, appropriate, and interactive. The patient has non-focal cranial nerves, motor, sensory, and cerebellar exam. Skin: No rashes, good turgor, no nodules on palpation. Past medical history: Hypothyroidism; atrial fibrillation - Eliquis, prior cardioversions; hemorrhoids; diastolic heart failure; arthritis; microscopic colitis; asthma; constipation Past surgical history: Hysterectomy; orthopedic surgeries Family history: Noncontributory Social history: Lives at [facility], , retired. DIAGNOSTICS/PROCEDURES/CRITICAL CARE TIME: Abdominal CT: Constipation DIFFERENTIAL DIAGNOSIS: The differential diagnosis for the patient's abdominal pain included but was not limited to ovarian cyst, pelvic inflammatory disease, ovarian torsion, urinary tract infection, ectopic , cholecystitis, and appendicitis. MEDICAL DECISION MAKING: This is an 78 y/o female who presents unable to have a bowel movement or pass gas for the last 3 days. She has mild diffuse tenderness and mild upper abdominal distention. Exam does not seem to indicate bowel obstruction. Suspect constipation is more likely. Plan for IV, labs, abdominal CT, and symptom management. 1L IV NS, 4mg IV Zofran, and 50mcg IV Fentanyl ordered. CT shows constipation, no obstruction. Plan for disimpaction by BROOKE Molina and discharge home with standard constipation care and follow up instructions. - Data Points Laboratory Results: Laboratory Results 02/14/18 16:35 02/14/18 16:35 02/14/18 02/14/18 02/14/18 16:45 16:35 16:35 WBC 7.57 10^3/uL 10^3/uL (3.80-9.50) RBC 4.02 10^6/uL L 10^6/uL (4.18-5.33) Hgb 13.1 g/dL g/dL (12.6-16.3) POC Hgb 13.3 gm/dL gm/dL (12.6-16.3) Hct 38.5 % % (38.0-47.0) POC Hct 39 % % (38-47) MCV 95.8 fL fL (81.5-99.8) MCH 32.6 pg pg (27.9-34.1) MCHC 34.0 g/dL g/dL (32.4-36.7) RDW 12.3 % % (11.5-15.2) Plt Count 221 10^3/uL 10^3/uL (150-400) MPV 8.8 fL fL (8.7-11.7) Neut % (Auto) 70.9 % % (39.3-74.2) Lymph % (Auto) 17.3 % % (15.0-45.0) [place] % (Auto) 10.3 % % (4.5-13.0) Eos % (Auto) 0.9 % % (0.6-7.6) Baso % (Auto) 0.3 % % (0.3-1.7) Nucleat RBC Rel Count 0.0 % % (0.0-0.2) Absolute Neuts (auto) 5.37 10^3/uL 10^3/uL (1.70-6.50) Absolute Lymphs (auto) 1.31 10^3/uL 10^3/uL (1.00-3.00) Absolute Monos (auto) 0.78 10^3/uL 10^3/uL (0.30-0.80) Absolute Eos (auto) 0.07 10^3/uL 10^3/uL (0.03-0.40) Absolute Basos (auto) 0.02 10^3/uL 10^3/uL (0.02-0.10) Absolute Nucleated RBC 0.00 10^3/uL 10^3/uL (0-0.01) Immature Gran % 0.3 % % (0.0-1.1) Immature Gran # 0.02 10^3/uL 10^3/uL (0.00-0.10) POC Sodium 141 mEq/L mEq/L (135-145) Sodium 138 mEq/L mEq/L (135-145) POC Potassium 4.2 mEq/L mEq/L (3.3-5.0) Potassium 4.4 mEq/L mEq/L (3.3-5.0) POC Chloride 109 mEq/L mEq/L (97-110) Chloride 110 mEq/L mEq/L (97-110) Carbon Dioxide 21 mEq/l L mEq/l (22-31) Anion Gap 7 mEq/L mEq/L (6-14) POC BUN 30 mg/dL H mg/dL (7-23) BUN 31 mg/dL H mg/dL (7-23) Creatinine 1.0 mg/dL mg/dL (0.6-1.0) POC Creatinine 1.1 mg/dL H mg/dL (0.6-1.0) Estimated GFR 53 Glucose 95 mg/dL mg/dL (70-100) POC Glucose 97 mg/dL mg/dL (70-100) Calcium 9.9 mg/dL mg/dL (8.5-10.4) Total Bilirubin 0.4 mg/dL mg/dL (0.1-1.4) Conjugated Bilirubin 0.2 mg/dL mg/dL (0.0-0.5) Unconjugated Bilirubin 0.2 mg/dL mg/dL (0.0-1.1) AST 19 IU/L IU/L (14-46) ALT 32 IU/L IU/L (9-52) Alkaline Phosphatase 85 IU/L IU/L (38-126) Total Protein 6.2 g/dL L g/dL (6.3-8.2) Albumin 3.7 g/dL g/dL (3.5-5.0) Lipase 163 IU/L IU/L (23-300) Medications Given: Discontinued Medications Fentanyl (Sublimaze) 50 mcg IVP EDNOW ONE Stop: 02/14/18 16:44 Last Admin: 02/14/18 16:47 Dose: 50 mcg Sodium Chloride (Ns) 1,000 mls @ 0 mls/hr IV EDNOW ONE; Wide Open PRN Reason: Protocol Stop: 02/14/18 16:34 Last Admin: 02/14/18 16:48 Dose: 1,000 mls Ondansetron HCl (Zofran) 4 mg IVP EDNOW ONE Stop: 02/14/18 16:44 Last Admin: 02/14/18 16:47 Dose: 4 mg Point of Care Test Results: Chemistry 02/14/18 16:45 POC Sodium 141 mEq/L mEq/L (135-145) POC Potassium 4.2 mEq/L mEq/L (3.3-5.0) POC Chloride 109 mEq/L mEq/L (97-110) POC BUN 30 mg/dL H mg/dL (7-23) POC Creatinine 1.1 mg/dL H mg/dL (0.6-1.0) POC Glucose 97 mg/dL mg/dL (70-100) ISTAT H&H 02/14/18 16:45 POC Hgb 13.3 gm/dL gm/dL (12.6-16.3) POC Hct 39 % % (38-47) Departure - Departure Disposition: Home, Routine, Self-Care Clinical Impression: Obstipation Condition: Good Instructions: Obstipation (ED) Additional Instructions: 1. Combine one bottle of Miralax with one gallon of Gatorade. Drink the first half in 15 minutes. Then drink the remaining quantity in 15-minute increments over the next hour until gone. Wait until you are at home near a toilet to start this procedure 2. Take magnesium citrate as directed. 3. Increase fluid and fiber intake in general. 4. Follow up with your primary care provider as needed for unimproved symptoms. 5. Return to the ED for worsening of condition. Referrals: Sophy King MD [Primary Care Provider] - As per Instructions Report Scribed for: Cullen Arzola Report Scribed by: Jocelyne Payton Date of Report: 02/14/18 Time of Report: 16:33
[2018-02-14] MEDS ORDERED: NS 1,000 ML IV ONE (16:33)
[2018-02-14] MEDS ORDERED: ONDANSETRON 4 MG/2 ML VIAL IVP ONE (16:43)
[2018-02-14] MEDS ORDERED: fentaNYL 100 MCG/2 ML INJ IVP ONE (16:43)
[2018-02-14 16:53] LABS: PLATELET COUNT 221 10^3/uL (150-400)
[2018-02-14] MEDS ORDERED: IOPAMIDOL (ISOVUE-300) 100 ML BTL ONE (16:59)
[2018-02-14] MEDS ORDERED: LIDOCAINE 2% JELLY 20 ML (UROJECT) ONE (17:44)
[2018-02-14 18:25] VITALS: BP 120/81
== END 2018-02-14 22:01 | disposition home or self-care (01) ==
DX: K59.00 Constipation, unspecified (principal); E86.9 Volume depletion, unspecified; I10 Essential (primary) hypertension; E03.9 Hypothyroidism, unspecified; Z90.710 Acquired absence of both cervix and uterus
CPT/HCPCS: 74177; 96361; 96374; 96375; 99285; J2405; J3010; Q9967; 82435-PO; 82565-PO; 82947-PO; 84132-PO; 84295-PO; 84520-PO; 85014-PO

== ENCOUNTER 2018-07-03 13:58 | Inpatient (IN) | payer OTHER ==
--- NOTE | 2018-07-03 14:55 | EDPHY ---
H & P Time Seen by Provider: 07/03/18 14:53 HPI/ROS: Chief complaint. Dizzy, weak HPI. Patient is an 78-year-old female presents emergency department with 2 day history of generalized weakness and dizziness especially with standing. She feels that she could pass out. She has no chest pain, shortness of breath, cough, fever, no abdominal pain. Vomiting this morning. She has GI issues with frequent bowel movements every hour for a long time. Her PCP started her on duloxetine with her 1st day of dose 2 days ago and then took it again yesterday. This coincided with onset symptoms. She had previous urosepsis in April. No urinary symptoms currently. Activities that she normally does at home now she is unable to do because of weakness and sense of near passing out. She has chronic atrial fibrillation and is on Eliquis ROS 10 systems were reviewed and negative with the exception of the elements mentioned in the history of present illness Past Medical/Surgical History: Atrial fibrillation, hypothyroid, hypertension, asthma, sleep apnea, hysterectomy, arthritis Social History: Single, nonsmoker, no alcohol Smoking Status: Former smoker Physical Exam: General Appearance: Alert well-developed female mild distress vital signs are stable Eyes: Pupils equal and round no pallor or injection. ENT, Mouth: Mucous membranes are slightly dry. Respiratory: There are no retractions, lungs are clear to auscultation. Cardiovascular: Regular rate and rhythm. Gastrointestinal: Abdomen is soft and nontender, no masses, bowel sounds normal. Neurological: Awake and alert, sensory and motor exams grossly normal. Skin: Warm and dry, no rashes. Musculoskeletal: Neck is supple nontender. Extremities symmetrical, full range of motion. Psychiatric: Patient is oriented X 3, there is no agitation. Constitutional: Initial Vital Signs Temperature (C) 37 C 07/03/18 14:02 Heart Rate 91 07/03/18 14:02 Respiratory Rate 16 07/03/18 14:02 Blood Pressure 102/66 07/03/18 14:02 O2 Sat (%) 97 07/03/18 14:02 O2 Delivery Mode Room Air Allergies/Adverse Reactions: No Known Allergies Allergy (Verified 02/14/18 15:48) Home Medications: Medication Instructions Recorded Advair 100/50 (*) 07/03/18 Diltiazem 07/03/18 Duoneb (*) 07/03/18 Eliquis 07/03/18 Estrace Vaginal (*) 07/03/18 Klor-Con 07/03/18 Levothyroxine 07/03/18 Losartan Potassium 07/03/18 Methenamine Gloria 07/03/18 Metoprolol Succinate 07/03/18 Montelukast Sodium 07/03/18 Psyllium Husk 07/03/18 Ranitidine HCl 07/03/18 SIMVASTATIN 07/03/18 Torsemide 07/03/18 Medical Decision Making - Diagnostics EKG Interpretation: EKG interpreted by me shows atrial fibrillation with normal axis. Appearance of old inferior NV. QRS is otherwise normal. No significant ST elevation or depression. Ventricular response is 87 Imaging Results: Imaging Impressions Chest X-Ray 07/03/18 14:54 Impression: 1. Cardiomegaly unchanged. No failure. 2. No acute process. Head CT 07/03/18 14:54 Impression: 1. No significant intracranial abnormality seen. If symptoms worsen, additional imaging may be necessary. Findings discussed with Jessica Varma PA-C, answering for Norris Penny M.D. at 15:42 hour, 07/03/2018. Chest x-ray interpreted by me shows cardiomegaly but otherwise no pneumonia CT head nonacute. No hemorrhage Procedures: IV normal saline with 1 L ED Course/Re-evaluation: Re-evaluation patient is stable. She and I discussed imaging and lab results. We discussed treatment plan including recommendation for admission due to her weakness and near syncope. She expresses understanding and agreement I consulted discussed case with Dr. Meeks, hospitalist, who agrees to the admission Differential Diagnosis: This could be medication reaction. She has not given us a urine specimen yet but it could be UTI. No evidence for sepsis. No evidence for pneumonia. No evidence for intracranial hemorrhage. Atrial fibrillation appears stable - Data Points Laboratory Results: Laboratory Results 07/03/18 14:15 07/03/18 14:15 07/03/18 07/03/18 07/03/18 14:15 14:15 14:15 WBC 9.98 10^3/uL H 10^3/uL (3.80-9.50) RBC 4.57 10^6/uL 10^6/uL (4.18-5.33) Hgb 14.7 g/dL g/dL (12.6-16.3) Hct 42.2 % % (38.0-47.0) MCV 92.3 fL fL (81.5-99.8) MCH 32.2 pg pg (27.9-34.1) MCHC 34.8 g/dL g/dL (32.4-36.7) RDW 12.1 % % (11.5-15.2) Plt Count 275 10^3/uL 10^3/uL (150-400) MPV 9.2 fL fL (8.7-11.7) Neut % (Auto) 76.0 % H % (39.3-74.2) Lymph % (Auto) 12.6 % L % (15.0-45.0) [place] % (Auto) 10.9 % % (4.5-13.0) Eos % (Auto) 0.1 % L % (0.6-7.6) Baso % (Auto) 0.1 % L % (0.3-1.7) Nucleat RBC Rel Count 0.0 % % (0.0-0.2) Absolute Neuts (auto) 7.58 10^3/uL H 10^3/uL (1.70-6.50) Absolute Lymphs (auto) 1.26 10^3/uL 10^3/uL (1.00-3.00) Absolute Monos (auto) 1.09 10^3/uL H 10^3/uL (0.30-0.80) Absolute Eos (auto) 0.01 10^3/uL L 10^3/uL (0.03-0.40) Absolute Basos (auto) 0.01 10^3/uL L 10^3/uL (0.02-0.10) Absolute Nucleated RBC 0.00 10^3/uL 10^3/uL (0-0.01) Immature Gran % 0.3 % % (0.0-1.1) Immature Gran # 0.03 10^3/uL 10^3/uL (0.00-0.10) PT 18.5 SEC H SEC (12.0-15.0) INR 1.62 H (0.83-1.16) APTT 40.5 SEC H SEC (23.0-38.0) Sodium 133 mEq/L L mEq/L (135-145) Potassium 3.3 mEq/L L mEq/L (3.5-5.2) Chloride 98 mEq/L mEq/L (97-110) Carbon Dioxide 23 mEq/l mEq/l (22-31) Anion Gap 12 mEq/L mEq/L (6-14) BUN 21 mg/dL mg/dL (7-23) Creatinine 1.3 mg/dL H mg/dL (0.6-1.0) Estimated GFR 39 Glucose 106 mg/dL H mg/dL (70-100) Calcium 9.5 mg/dL mg/dL (8.5-10.4) POC Troponin I NT-Pro-B Natriuret Pep 1040 pg/mL H pg/mL (0-450) 07/03/18 14:11 WBC RBC Hgb Hct MCV MCH MCHC RDW Plt Count MPV Neut % (Auto) Lymph % (Auto) Butler % (Auto) Eos % (Auto) Baso % (Auto) Nucleat RBC Rel Count Absolute Neuts (auto) Absolute Lymphs (auto) Absolute Monos (auto) Absolute Eos (auto) Absolute Basos (auto) Absolute Nucleated RBC Immature Gran % Immature Gran # PT INR APTT Sodium Potassium Chloride Carbon Dioxide Anion Gap BUN Creatinine Estimated GFR Glucose Calcium POC Troponin I 0.00 ng/mL ng/mL (0.00-0.08) NT-Pro-B Natriuret Pep Medications Given: Discontinued Medications Sodium Chloride (Ns) 1,000 mls @ 0 mls/hr IV EDNOW ONE; Wide Open PRN Reason: Protocol Stop: 07/03/18 16:03 Last Admin: 07/03/18 16:12 Dose: 1,000 mls Ondansetron HCl (Zofran) 4 mg IVP EDNOW ONE Stop: 07/03/18 16:03 Last Admin: 07/03/18 16:13 Dose: 4 mg Point of Care Test Results: Chemistry 07/03/18 14:11 POC Troponin I 0.00 ng/mL ng/mL (0.00-0.08) Departure - Departure Disposition: Home, Routine, Self-Care Clinical Impression: Weakness Condition: Fair
[2018-07-03 15:15] LABS: INR 1.62 (0.83-1.16); PROTIME(PATIENT) 18.5 SEC (12.0-15.0)
[2018-07-03 15:24] LABS: PLATELET COUNT 275 10^3/uL (150-400)
[2018-07-03] MEDS ORDERED: NS 1,000 ML IV ONE (16:02)
[2018-07-03] MEDS ORDERED: ONDANSETRON 4 MG/2 ML VIAL IVP ONE (16:02)
[2018-07-03] MEDS ORDERED: ONDANSETRON DISINTEGRATING 4 MG TAB PO PRN (17:35)
[2018-07-03] MEDS ORDERED: NS 1,000 ML IV SCH (17:45)
[2018-07-03] MEDS ORDERED: PROTOCOL POTASSIUM 1 DOSE MISC PRN (17:46)
[2018-07-03] MEDS ORDERED: POTASSIUM CL 20 MEQ PKT PO ONE (17:47)
--- NOTE | 2018-07-03 17:53 | PDGENHP ---
History and Physical - Chief Complaint Generalized weakness, nausea, lightheadedness - History of Present Illness This is an 78-year-old patient with history of permanent atrial fibrillation on oral anticoagulation and rate control, obstructive sleep apnea with CPAP, asthma , hypertension, hypothyroidism, diastolic congestive heart failure, and a dilated ascending aorta presenting to the emergency room with 2 days worth of progressive generalized weakness, lightheadedness while upright, and nausea; she vomited 1 time today. She chronically has frequent loose stools approximately 8-10 stools a day; she was admitted in August 2017 due to these loose stools and has had multiple GI pathogen panels with negative results. On Saturday she followed up with her primary care doctor who prescribed her Cymbalta for her irritable bowel syndrome and patient reports shortly after taking Cymbalta her symptoms presented however she was seen in [facility] late May 2018 with similar symptoms of worsening dyspnea and edema. Dr. Maryjane Steinberg is her marketing assistant manager; she was seen late May of this year for complaints of worsening edema and increased fatigue and dyspnea after walking short distances which is has been happening for approximately a month now. Torsemide was increased a week prior to this and her edema improved but her dyspnea on minimal exertion persists. It was discussed during this visit for possible pacemaker and AVN ablation which she prefers but has not yet visited the EP to discuss moving forward with this procedure. She denies the following: Chest pain, dysuria, cough, or any recent trauma. She is being admitted for further workup, treatment and monitoring. History Information - Allergies/Home Medication List Allergies/Adverse Reactions: No Known Allergies Allergy (Verified 02/14/18 15:48) Home Medications: Acetaminophen 1,000 mg PO SUTUTHSA@,13,21 07/03/18 [Last Taken Unknown] Advair Hfa 230/21 Inhaler 2 puffs IH BID 07/03/18 [Last Taken 07/03/18] Apixaban [Eliquis] 5 mg PO BID 07/03/18 [Last Taken 07/03/18] DULoxetine [Cymbalta 20 MG (RX)] 20 mg PO DAILY 07/03/18 [Last Taken 07/03/18] Diltiazem HCl [Diltiazem 24Hr ER] 360 mg PO DAILY@0800 07/03/18 [Last Taken ] Estradiol [Estrace Vaginal (*)] 1 thony VG MOTH@219907/03/18 [Last Taken Unknown] Fexofenadine HCl [Cindy Allergy] 180 mg PO DAILY@199907/03/18 [Last Taken ] Herbals/Supplements -Info Only 1 ea PO DAILY 07/03/18 [Last Taken Unknown] Ipratropium 0.03% Nasal [Atrovent 0.03% Nasal (*)] 2 sprays EACHNARE BID@07/03/18 [Last Taken 07/03/18] Levothyroxine [Synthroid 112 mcg (*)] 112 mcg PO DAILY06 07/03/18 [Last Taken ] Losartan Potassium [Cozaar 25 mg (*)] 25 mg PO DAILY@79907/03/18 [Last Taken 07/03/18] Methenamine Gloria [Hiprex 1 gm (*)] 1 gm PO BID 07/03/18 [Last Taken 07/03/18] Metoprolol Succinate Xr [Toprol Xl 50 mg (*)] 50 mg PO DAILY@79907/03/18 [ Last Taken 07/03/18] Metoprolol Succinate Xr [Toprol Xl 50 mg (*)] 100 mg PO DAILY@199907/03/18 [ Last Taken 07/02/18] Montelukast Sodium [Singulair 10 mg (*)] 10 mg PO DAILY@219907/03/18 [Last Taken 07/02/18] Polyethylene Glycol 3350 [Miralax 17 gm (*)] 17 gm PO DAILY 07/03/18 [Last Taken 07/03/18] Potassium Chloride [Klor-Con 10] 30 meq PO DAILY@79907/03/18 [Last Taken 07/03] Propylene Glycol/Peg 400 [Systane Gel Eye Drops] 1 drop OP DAILY PRN 07/03/18 [ Last Taken Unknown] Psyllium Husk [Fiber] 8 cap PO BID 07/03/18 [Last Taken 07/02/18] Ranitidine HCl 150 mg PO DAILY@219907/03/18 [Last Taken 07/02/18] SIMVASTATIN 10 mg PO DAILY@219907/03/18 [Last Taken 07/02/18] Torsemide 40 mg PO DAILY@07/03/18 [Last Taken 07/03/18] guaiFENesin/DEXTROMETHORPHAN [Mucinex Dm ER 1,200-60 mg Tab] 1 each PO DAILY PRN 07/03/18 [Last Taken Unknown] I have personally reviewed and updated: family history, medical history, social history, surgical history Past Medical History: Atrial fibrillation, hypothyroidism, hypertension, asthma , obstructive sleep apnea, diastolic heart failure, hyperlipidemia, obesity, coronary arthrosclerosis, dilated ascending aorta 4.1 cm - Surgical History Reports: hysterectomy Additional surgical history: Right Achilles tendon repair, cataract surgery, knee surgery, spine surgery, shoulder surgery - Family History Additional family history: Breast cancer, depression, hyperlipidemia, osteoporosis, anxiety, hypertension - Social History Smoking Status: Former smoker Alcohol Use: None Drug Use: None Additional social history: . 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 Lives at [facility] Review of Systems Review of Systems: ROS: 10pt was reviewed & negative except for what was stated in HPI & below Physical Exam Physical Exam: Lab data and imaging were reviewed. White blood count: 9.98 Hemoglobin hematocrit: 14.7 and 42.2 Platelet count; 275 Sodium: 133 Potassium: 3.3 Chloride: 98 Carbon dioxide: 23 BUN/Cr: 21/1.3 INR: 1.62 TSH: 1.630 Magnesium: 1.7 BNP: 1040 Urinalysis: Pending EKG: Atrial fibrillation with incomplete right bundle branch block with similar findings comparing an old EKG from August 2017. No significant changes noted. Chest x-ray: Cardio megaly unchanged, no failure and no acute process Head CT scan: No significant intercranial abnormality seen Temp Pulse Resp BP Pulse Ox 36.8 C 76 18 112/58 L 96 07/03/18 17:12 07/03/18 17:37 07/03/18 17:37 07/03/18 17:37 07/03/18 17:37 Constitutional: obese Eyes: PERRL, anicteric sclera, EOMI Ears, Nose, Mouth, Throat: hearing normal, ears appear normal, no oral mucosal ulcers, dry mucous membranes (Dry mucous membrane however appears to be euvolemic) Cardiovascular: no murmur, rub, or gallop, irregularly irregular Peripheral Pulses: 2+: dorsalis-pedis (R), dorsalis-pedis (L) Respiratory: reduced air movement Gastrointestinal: normoactive bowel sounds, soft, non-tender abdomen, no palpable masses Genitourinary: no bladder fullness, no bladder tenderness Skin: warm, normal color, no rashes or abrasions, no fluctuance, no induration, No mottled Musculoskeletal: generalized weakness (I did not assess her gait; I assessed while lying down) Neurologic: AAOx3, sensation intact bilaterally Psychiatric: interacting appropriately, not anxious, not encephalopathic, thought process linear Lymph, Heme, Immunologic: no cervical LAD, no supraclavicular LAD Lab Data & Imaging Review 07/03/18 14:15 07/03/18 14:15 WBC 9.98 10^3/uL (3.80-9.50) H 07/03/18 14:15 RBC 4.57 10^6/uL (4.18-5.33) 07/03/18 14:15 Hgb 14.7 g/dL (12.6-16.3) 07/03/18 14:15 Hct 42.2 % (38.0-47.0) 07/03/18 14:15 MCV 92.3 fL (81.5-99.8) 07/03/18 14:15 MCH 32.2 pg (27.9-34.1) 07/03/18 14:15 MCHC 34.8 g/dL (32.4-36.7) 07/03/18 14:15 RDW 12.1 % (11.5-15.2) 07/03/18 14:15 Plt Count 275 10^3/uL (150-400) 07/03/18 14:15 MPV 9.2 fL (8.7-11.7) 07/03/18 14:15 Neut % (Auto) 76.0 % (39.3-74.2) H 07/03/18 14:15 Lymph % (Auto) 12.6 % (15.0-45.0) L 07/03/18 14:15 Schuyler % (Auto) 10.9 % (4.5-13.0) 07/03/18 14:15 Eos % (Auto) 0.1 % (0.6-7.6) L 07/03/18 14:15 Baso % (Auto) 0.1 % (0.3-1.7) L 07/03/18 14:15 Nucleat RBC Rel Count 0.0 % (0.0-0.2) 07/03/18 14:15 Absolute Neuts (auto) 7.58 10^3/uL (1.70-6.50) H 07/03/18 14:15 Absolute Lymphs (auto) 1.26 10^3/uL (1.00-3.00) 07/03/18 14:15 Absolute Monos (auto) 1.09 10^3/uL (0.30-0.80) H 07/03/18 14:15 Absolute Eos (auto) 0.01 10^3/uL (0.03-0.40) L 07/03/18 14:15 Absolute Basos (auto) 0.01 10^3/uL (0.02-0.10) L 07/03/18 14:15 Absolute Nucleated RBC 0.00 10^3/uL (0-0.01) 07/03/18 14:15 Immature Gran % 0.3 % (0.0-1.1) 07/03/18 14:15 Immature Gran # 0.03 10^3/uL (0.00-0.10) 07/03/18 14:15 PT 18.5 SEC (12.0-15.0) H 07/03/18 14:15 INR 1.62 (0.83-1.16) H 07/03/18 14:15 APTT 40.5 SEC (23.0-38.0) H 07/03/18 14:15 Sodium 133 mEq/L (135-145) L 07/03/18 14:15 Potassium 3.3 mEq/L (3.5-5.2) L 07/03/18 14:15 Chloride 98 mEq/L (97-110) 07/03/18 14:15 Carbon Dioxide 23 mEq/l (22-31) 07/03/18 14:15 Anion Gap 12 mEq/L (6-14) 07/03/18 14:15 BUN 21 mg/dL (7-23) 07/03/18 14:15 Creatinine 1.3 mg/dL (0.6-1.0) H 07/03/18 14:15 Estimated GFR 39 07/03/18 14:15 Glucose 106 mg/dL (70-100) H 07/03/18 14:15 Calcium 9.5 mg/dL (8.5-10.4) 07/03/18 14:15 Magnesium 1.7 mg/dL (1.6-2.3) 07/03/18 14:15 POC Troponin I 0.00 ng/mL (0.00-0.08) 07/03/18 14:11 NT-Pro-B Natriuret Pep 1040 pg/mL (0-450) H 07/03/18 14:15 TSH 1.630 uIU/mL (0.465-4.680) 07/03/18 14:15 Assessment & Plan Plan: This is a 78-year-old female with extensive cardiac history presenting with 2 days worth of overall weakness and dizziness while upright to the point where she feels like she would pass out but has not, nausea and vomiting 1 time this morning. She believes this is due to Cymbalta which was given to her 2 days ago for her irritable bowel syndrome. Her vital signs are the following: Blood pressure 108/64, heart rate 78, respirations 17, temperature 37.0 degrees , oxygen saturation 97% on room air. I am unsure if her presenting symptoms have any correlation with Cymbalta use (adverse reactions to Cymbalta include drowsiness, fatigue, nausea, weakness) or it is the progression of her cardiovascular disease. #Generalized weakness #Lightheadedness #Atrial fibrillation #Diastolic CHF #HTN #Obesity #Dilated Ascending Aorta #Irritable Bowel Syndrome #Hypokalemia #OLGA Plan: -Holding Cymbalta and stool laxatives including MiraLax and psyllium husk -Cardiology consulted and will evaluate the patient in the morning. I spoke to Dr. Narayanan. She had an echo performed May 2018 with the following results: Left ventricular is normal in size and systolic function with ejection fraction of 64%, right ventricle is upper limits of normal in size with normal systolic function, [id number] left atrial dilation with moderate right atrial dilation, moderate mitral regurgitation, moderate tricuspid regurgitation with estimated PA systolic pressure of 35 mm of mercury plus right atrial pressure, ascending aorta is dilated at 4.1 cm and comparing previous echo back in 2015 the ascending aorta is now dilated. Continue tele monitoring. -Cardiology recently increased her torsemide to 80 mg daily to which her edema improved but her dyspnea on exertion continue to persist. Torsemide has been decreased; holding torsemide in the morning due to OLGA and will await cardiology 's recommendation; she appears to be euvolemic. In regards to her atrial fibrillation it continues to be uncontrolled despite high doses of diltiazem and metoprolol. She was offered digoxin but was advised of the black box warning; she was also offered to visit with EP to discuss pacemaker and AVN ablation to which she would like but has yet to follow up with the EP. -Physical therapy and occupational therapy to evaluate and treat patient -Orthostatic vitals 1 time -Potassium electrolyte replacement protocol initiated -Urinalysis pending Diet: Cardiac VTE ppx: Eliquis Code: DNR Dispo: Admit to obs
[2018-07-03] MEDS ORDERED: TEARS/DEXTRAN 70/HYPROMELLOSE 15 ML OPHT.BTL EACHEYE PRN (18:24)
[2018-07-03] MEDS ORDERED: POTASSIUM CL 20 MEQ TAB PO ONE (18:45)
--- NOTE | 2018-07-03 19:41 | CPEKG ---
Test Reason : OPEN Blood Pressure : / mmHG Vent. Rate : 087 BPM Atrial Rate : 155 BPM P-R Int : 166 ms QRS Dur : 097 ms QT Int : 394 ms P-R-T Axes : 000 -18 -34 degrees QTc Int : 474 ms Atrial fibrillation Abnormal R-wave progression, early transition Inferior infarct, age indeterminate Confirmed by Norris Penny ([id number]) on 07/03/2018 7:40:47 PM Referred By: PHYSICIAN ED Confirmed By:Norris Penny
--- NOTE | 2018-07-03 19:43 | HOSPPROG ---
Hospitalist Progress Note Assessment/Plan: 78F with dCHF admitted with pre-syncope after starting Cymbalta recently for IBS. vitals ok appears slightly dry K 3.0 CTH, CXR ok ECG unchanged A/P # lightheadedness, pre-syncope: unclear if related to Cymbalta (hold for now); will also have cardiology evaluate - hold torsemide tonight # IBS/microscopic colitis - stable, holding Cymbalta # hypoK - replete # a-fib - eliquis, metop # dCHF - seems dry; hold diuretics # dilated asc aorta - outpatient follow up Patient seen and examined. Discussed with Ghada Barrientos, FRUIT [employer] - I agree with her H&P Objective: Vital Signs Temp Pulse Resp BP Pulse Ox 36.6 C 79 18 104/50 L 95 07/03/18 18:48 07/03/18 18:48 07/03/18 18:48 07/03/18 18:48 07/03/18 18:48 Laboratory Results 07/03/18 18:50 PT 18.5 SEC (12.0-15.0) H 07/03/18 14:15 INR 1.62 (0.83-1.16) H 07/03/18 14:15 ICD10 Worksheet Patient Problems: Problems Problem Status Onset Weakness Acute Encephalopathy acute Acute Pyelonephritis, acute Acute Renal infarct Acute Septic shock Acute Urinary tract infection Acute
[2018-07-03] MEDS: FLUTICASONE/SALMETER 500/50MCG DISKUS IH SCH (21:11)
[2018-07-03] MEDS: ACETAMINOPHEN 325 MG TAB PO PRN (21:16)
[2018-07-03] MEDS: MONTELUKAST SODIUM 10 MG TAB PO SCH (21:17)
[2018-07-03] MEDS: FAMOTIDINE 20 MG TAB PO SCH (21:17)
[2018-07-03] MEDS: APIXABAN 5 MG TAB PO SCH (21:17)
[2018-07-03] MEDS: CETIRIZINE 10 MG TAB PO SCH (21:17)
[2018-07-03] MEDS: METHENAMINE HIPP 1 GM TAB PO SCH (21:17)
[2018-07-03] MEDS: PRAVASTATIN SODIUM 20 MG TAB PO SCH (21:17)
[2018-07-03] MEDS: METOPROLOL SUCCINATE XR 50 MG TAB PO SCH (21:18)
[2018-07-03] MEDS ORDERED: ESTRADIOL 42.5 GM CRTUBE VG SCH (22:00)
[2018-07-03] MEDS ORDERED: POTASSIUM CL 10 MEQ TAB PO ONE (23:59)
[2018-07-04] MEDS: IPRATROPIUM 0.03% NASAL SPRAY EACHNARE SCH ×3 (04:44→23:01)
[2018-07-04] MEDS ORDERED: POTASSIUM CL 10 MEQ TAB PO ONE ×2 (05:55→19:31)
[2018-07-04] MEDS ORDERED: TORSEMIDE 20 MG TAB PO SCH (06:00)
[2018-07-04] MEDS: ONDANSETRON 4 MG/2 ML VIAL IVP PRN (06:07)
[2018-07-04] MEDS: LEVOTHYROXINE 112 MCG TAB PO SCH (06:07)
[2018-07-04] MEDS ORDERED: LOSARTAN POTASSIUM 25 MG TAB PO SCH (08:00)
[2018-07-04] MEDS: FLUTICASONE/SALMETER 500/50MCG DISKUS IH SCH ×2 (08:34→20:37)
[2018-07-04] MEDS: METOPROLOL SUCCINATE XR 50 MG TAB PO SCH ×2 (09:46→20:47)
[2018-07-04] MEDS: METHENAMINE HIPP 1 GM TAB PO SCH ×2 (09:46→20:42)
[2018-07-04] MEDS: DILTIAZEM CD 180 MG CAP PO SCH (09:46)
[2018-07-04] MEDS: APIXABAN 5 MG TAB PO SCH ×2 (09:46→20:43)
--- NOTE | 2018-07-04 10:03 | PDCARPN ---
Cardiology Progress Note Chief Complaint: fatigue Assessment/Plan: Assessment: 78F PMH permanent AF, on rate control and anticoagulation, asthma, htn, mild carotid disease, hypoT, DCHF, BELLO/CPAP, and dilated ascending aorta. She is admitted with presyncope after starting Cymbalta. She describes over a month of increasing fatigue and dyspnea. We have been increasing diuretics. After starting Cymbalta on Saturday, she felt severe fatigue/body aches. She also continues to have frequent stooling with 8-10 BMs per day. Echo from the office shows EF 60%, mild-mod LA dilation, mod RA dilation, mod MR , mod TR, dilated ascending aorta (done 06/12/18) 4.1 cm. Plan: #. fatigue/lightheaded: multifactorial from poor PO intake, diuretic therapy, frequent diarrhea #. AF RVR: her heart rates still appear above goal we reviewed options and patient is agreeable to starting Dig (has been on this in the past) monitor Cr and Dig levels continue Eliquis for [id number] of 5 #. DCHF: clinically appears dry hold diuretics #. htn: BP low hold Losartan to allow for rate controlling agents #. hypokalemia: repletion protocol #. mod MR/mild-mod TR/dilated ascending aorta: will continue routine monitoring #. OLGA: hold diuretics and Losartan #. IBS/microscopic colitis: per hospital medicine revisited holding psyllium and Miralax 07/04/18 10:08 Subjective: Feels stomach is burning. Has been having fatigue, lightheadedness preceding admission. Frequent stooling has been a big issue/ missing appointments due to stooling. Reviewed/Discussed With: hospitalist (Dr. Junior) Objective: Vital Signs (8 Hrs) Temp Pulse Resp BP Pulse Ox 07/04/18 09:46 112 H 113/62 07/04/18 08:32 98.4 F 84 16 113/62 97 07/04/18 03:43 98.1 F 80 18 106/63 98 Intake/Output (24 Hrs) 07/03/18 07/04/18 07/05/18 05:59 05:59 05:59 Intake Total 400 Output Total 1 Balance 399 Intake: Oral (ml) 400 Output: Urine (ml) 1 Toilet 1 Other: Weight 106.594 kg Intake Quantity Yes Sufficient Number of Voids Toilet 1 Number of Stools Toilet 1 Result Diagrams: 07/03/18 14:15 07/04/18 04:30 Cardiac Labs: Cardiac Lab Results (72 Hrs) 07/04/18 07/03/18 04:30 23:15 Troponin I < 0.012 < 0.012 EKG: AF, ST-T w abnormalities Telemetry: reviewed Echocardiogram: reviewed - Physical Exam Constitutional: no apparent distress Eyes: anicteric sclera Ears, Nose, Mouth, Throat: dry mucous membranes Cardiovascular: irregularly irregular, No systolic murmur Respiratory: clear to auscultate bilat, no crackles Gastrointestinal: normoactive bowel sounds, No tenderness, No ascites Skin: no rashes, warm Neurologic: AAOx3 Psychiatric: cooperative, interactive ICD10 Worksheet Patient Problems: Problems Problem Status Onset Weakness Acute Encephalopathy acute Acute Pyelonephritis, acute Acute Renal infarct Acute Septic shock Acute Urinary tract infection Acute
[2018-07-04] MEDS: ACETAMINOPHEN 325 MG TAB PO PRN ×2 (10:31→20:41)
[2018-07-04] MEDS ORDERED: NS 1,000 ML IV SCH (11:15)
--- NOTE | 2018-07-04 11:48 | HOSPPROG ---
Hospitalist Progress Note Assessment/Plan: A/P # lightheadedness, pre-syncope: unclear if related to Cymbalta (holding for now ), in setting of copious diarrhea - Cardiology consulted this AM, recommend holding Losartan due to low BP, holding diuretics (home Torsemide) - Will also give gentle IVF over next 12 hours @ 75 mg NS # OLGA- Cr increased to 1.8 this AM, holding diuretics and IVF, repeat BMP in the AM, monitor I/O, avoid nephrotoxic agents # IBS/microscopic colitis - having 8-10 loose BMs a day per patient, was on Miralax at home, recommended holding laxatives, holding Cymbalta # hypoK - replete # HTN- holding Losartan as above # a-fib - eliquis, metop, digoxin restarted by Cardiology this AM # dCHF - seems dry; holding diuretics as above, IVF as above # dilated asc aorta - outpatient follow up Dispo: Pending clinical course Subjective: Pt reports some nausea this aM Objective: Vital Signs Temp Pulse Resp BP Pulse Ox 36.9 C 112 H 16 113/62 97 07/04/18 08:32 07/04/18 09:46 07/04/18 08:32 07/04/18 09:46 07/04/18 08:32 Laboratory Results 07/04/18 04:30 07/03/18 07/04/18 07/05/18 05:59 05:59 05:59 Intake Total 400 Output Total 1 Balance 399 PT 18.5 SEC (12.0-15.0) H 07/03/18 14:15 INR 1.62 (0.83-1.16) H 07/03/18 14:15 - Physical Exam Constitutional: chronically ill appearing Eyes: PERRL Ears, Nose, Mouth, Throat: dry mucous membranes Cardiovascular: irregularly irregular Respiratory: no respiratory distress Gastrointestinal: soft, non-tender abdomen Skin: warm Musculoskeletal: generalized weakness Neurologic: AAOx3 Psychiatric: anxious ICD10 Worksheet Patient Problems: Problems Problem Status Onset Weakness Acute Encephalopathy acute Acute Pyelonephritis, acute Acute Renal infarct Acute Septic shock Acute Urinary tract infection Acute
[2018-07-04] MEDS: DIGOXIN 125 MCG TAB PO SCH (12:32)
--- NOTE | 2018-07-04 16:44 | ASMTCMCOM ---
CM Note CM Note Notes: Met with patient to discuss possible discharge plan. Patient currently resides at [facility]. Her daughter lives in [place] and will be flying out to stay a few days on Saturday. Patient is presenting with some weakness and agrees she would benefit from a short stay at [facility]'s SNF. Left a message for FM admission, referral sent. Also completed PASRR. Await c/b from [facility] to confirm they can accommodate on their skilled side. Therapy recommending SNF as well. CM will follow. Plan: [facility] Date Signed: 07/04/2018 04:43 PM Electronically Signed By:Fauzia Vuong RN
--- NOTE | 2018-07-04 17:35 | PDMN ---
Medical Necessity Medical necessity: Change to inpt as of 07/04/18 @ 15:06, meets inpt criteria per MD order and MCG M-170, Gastroenteritis, IBS/microscopic colitis, persistent light-headedness, pre-syncope, and nausea in setting of copious diarrhea (pt reports 8-10 loose BM's/day). Also presented w/OLGA w/creatinine trending up to 1.8 today. PMHx includes afib on oral anticoag, BELLO w/CPAP, asthma, HTN, hypothyroidism, diastolic CHF, and dilated ascending aorta, comorbid adv age. Est LOS>2MN for ongoing eval/management of above.
[2018-07-04] MEDS: CETIRIZINE 10 MG TAB PO SCH (20:42)
[2018-07-04] MEDS: FAMOTIDINE 20 MG TAB PO SCH (20:43)
[2018-07-04] MEDS: MONTELUKAST SODIUM 10 MG TAB PO SCH (20:44)
[2018-07-04] MEDS: PRAVASTATIN SODIUM 20 MG TAB PO SCH (20:44)
[2018-07-04] MEDS: ADVAIR IH SCH (20:56)
[2018-07-05] MEDS: LEVOTHYROXINE 112 MCG TAB PO SCH (04:49)
[2018-07-05] MEDS ORDERED: POTASSIUM CL 10 MEQ TAB PO ONE ×2 (07:54→20:19)
[2018-07-05] MEDS: ADVAIR IH SCH ×3 (09:00→21:31)
[2018-07-05] MEDS: METOPROLOL SUCCINATE XR 50 MG TAB PO SCH ×2 (09:20→21:29)
[2018-07-05] MEDS: METHENAMINE HIPP 1 GM TAB PO SCH ×2 (09:21→21:30)
[2018-07-05] MEDS: APIXABAN 5 MG TAB PO SCH ×2 (09:21→21:29)
[2018-07-05] MEDS: DILTIAZEM CD 180 MG CAP PO SCH (09:21)
[2018-07-05] MEDS: ACETAMINOPHEN 325 MG TAB PO PRN ×2 (09:38→21:28)
[2018-07-05] MEDS ORDERED: POTASSIUM CL 20 MEQ TAB PO ONE (11:22)
[2018-07-05] MEDS: ONDANSETRON 4 MG/2 ML VIAL IVP PRN (11:58)
[2018-07-05] MEDS: IPRATROPIUM 0.03% NASAL SPRAY EACHNARE SCH ×2 (12:23→21:31)
[2018-07-05] MEDS: DIGOXIN 125 MCG TAB PO SCH (14:02)
--- NOTE | 2018-07-05 14:05 | HOSPPROG ---
Hospitalist Progress Note Assessment/Plan: A/P # lightheadedness, pre-syncope: unclear if related to Cymbalta (holding for now ), in setting of copious diarrhea which has improved - Cardiology consulted on 07/04, recommend holding Losartan due to low BP, holding diuretics (home Torsemide) - S/p gentle IVF yesterday with improvement in Cr as below - Patient had acute episode this morning with LH, nausea, EKG and Troponin checked without acute ischemic changes, will continue to monitor overnight # OLGA- Cr increased to 1.8 on 07/04, holding diuretics and IVF, improving this AM with Cr back to baseline 1.1, continue to monitor BMP, monitor I/O, avoid nephrotoxic agents # IBS/microscopic colitis - having 8-10 loose BMs a day per patient, was on Miralax at home, recommended holding laxatives, holding Cymbalta, improving # hypoK - replete # HTN- holding Losartan as above, will likely discontinue # a-fib - eliquis, metop, digoxin restarted by Cardiologyon 07/04 # dCHF - seems dry; holding diuretics as above, IVF as above # dilated asc aorta - outpatient follow up Dispo: Pending clinical course, PT/OT recommending SNF, will discuss with CM Subjective: Pt reports episode of LH, nausea this morning, improving Objective: Vital Signs Temp Pulse Resp BP Pulse Ox 36.6 C 76 18 115/55 L 93 07/05/18 11:46 07/05/18 14:02 07/05/18 11:46 07/05/18 11:46 07/05/18 11:46 Laboratory Results 07/05/18 04:14 07/04/18 07/05/18 07/06/18 05:59 05:59 05:59 Intake Total 1610 Balance 1610 PT 18.5 SEC (12.0-15.0) H 07/03/18 14:15 INR 1.62 (0.83-1.16) H 07/03/18 14:15 - Physical Exam Constitutional: no apparent distress Eyes: PERRL Ears, Nose, Mouth, Throat: moist mucous membranes Cardiovascular: irregularly irregular, No tachycardia Respiratory: no respiratory distress Gastrointestinal: soft, non-tender abdomen Skin: warm Musculoskeletal: generalized weakness Neurologic: AAOx3 Psychiatric: anxious ICD10 Worksheet Patient Problems: Problems Problem Status Onset Weakness Acute Encephalopathy acute Acute Pyelonephritis, acute Acute Renal infarct Acute Septic shock Acute Urinary tract infection Acute
--- NOTE | 2018-07-05 15:34 | CPEKG ---
Test Reason : OPEN Blood Pressure : / mmHG Vent. Rate : 081 BPM Atrial Rate : 099 BPM P-R Int : 188 ms QRS Dur : 102 ms QT Int : 391 ms P-R-T Axes : 000 -08 -46 degrees QTc Int : 454 ms Atrial fibrillation Inferoposterior infarct, Confirmed by Maryjane Steinberg ([id number]) on 07/05/2018 3:34:22 PM Referred By: Tutu Meeks Confirmed By:Maryjane Steinberg
[2018-07-05] MEDS: PRAVASTATIN SODIUM 20 MG TAB PO SCH (21:29)
[2018-07-05] MEDS: MONTELUKAST SODIUM 10 MG TAB PO SCH (21:29)
[2018-07-05] MEDS: CETIRIZINE 10 MG TAB PO SCH (21:30)
[2018-07-05] MEDS: FAMOTIDINE 20 MG TAB PO SCH (21:30)
[2018-07-06] MEDS: LEVOTHYROXINE 112 MCG TAB PO SCH (06:52)
--- NOTE | 2018-07-06 09:49 | PDCARPN ---
Cardiology Progress Note Chief Complaint: fatigue/AF RVR/hypokalemia Assessment/Plan: Assessment: 78F PMH permanent AF, on rate control and anticoagulation, asthma, htn, mild carotid disease, hypoT, DCHF, BELLO/CPAP, and dilated ascending aorta. She is admitted with presyncope after starting Cymbalta. She describes over a month of increasing fatigue and dyspnea. We have been increasing diuretics. After starting Cymbalta on Saturday, she felt severe fatigue/body aches. She also continues to have frequent stooling with 8-10 BMs per day. Echo from the office shows EF 60%, mild-mod LA dilation, mod RA dilation, mod MR , mod TR, dilated ascending aorta (done 06/12/18) 4.1 cm. Plan: #. fatigue/lightheaded: multifactorial from poor PO intake, diuretic therapy, frequent diarrhea #. AF RVR: her heart rates still appear above goal we reviewed options and patient is agreeable to starting Dig (has been on this in the past) monitor Cr and Dig levels continue Eliquis for [id number] of 5 #. DCHF: clinically appears dry hold diuretics #. htn: BP low hold Losartan to allow for rate controlling agents #. hypokalemia: repletion protocol #. mod MR/mild-mod TR/dilated ascending aorta: will continue routine monitoring #. OLGA: hold diuretics and Losartan #. IBS/microscopic colitis: per hospital medicine revisited holding psyllium and Miralax OK to d/c from cardiology perspective BMP and Dig level in 5 days 07/06/18 09:45 Subjective: Feeling improved. Reviewed/Discussed With: hospitalist (Dr. Junior) Objective: Vital Signs (8 Hrs) Temp Pulse Resp BP Pulse Ox 07/06/18 07:46 97.5 F 73 18 117/59 L 95 Intake/Output (24 Hrs) 07/05/18 07/06/18 07/07/18 05:59 05:59 05:59 Intake Total 1610 950 Output Total 700 Balance 1610 250 Intake: Oral (ml) 650 950 IV Infused (ml) 960 Ns 1,000 ml @ 75 mls/hr 960 IV CONT APRIL Rx#: [id number] Output: Urine (ml) 700 Toilet 700 Other: Weight 102.2 kg 103.1 kg Intake Quantity Yes Sufficient Number of Voids Toilet 1 1 Number of Stools Toilet 1 Result Diagrams: 07/03/18 14:15 07/06/18 07:14 Cardiac Labs: Cardiac Lab Results (72 Hrs) 07/05/18 13:00 Troponin I < 0.012 EKG: reviewed AF CVR - Physical Exam Constitutional: no apparent distress Eyes: anicteric sclera Ears, Nose, Mouth, Throat: dry mucous membranes Cardiovascular: irregularly irregular Respiratory: clear to auscultate bilat, reduced air movement Skin: no rashes, no abrasions, warm, no edema Neurologic: AAOx3 Psychiatric: cooperative, interactive ICD10 Worksheet Patient Problems: Problems Problem Status Onset Weakness Acute Encephalopathy acute Acute Pyelonephritis, acute Acute Renal infarct Acute Septic shock Acute Urinary tract infection Acute
[2018-07-06] MEDS: APIXABAN 5 MG TAB PO SCH (10:04)
[2018-07-06] MEDS: DILTIAZEM CD 180 MG CAP PO SCH (10:04)
[2018-07-06] MEDS: METOPROLOL SUCCINATE XR 50 MG TAB PO SCH (10:04)
[2018-07-06] MEDS: METHENAMINE HIPP 1 GM TAB PO SCH (10:04)
[2018-07-06] MEDS: ACETAMINOPHEN 325 MG TAB PO PRN (10:20)
[2018-07-06] MEDS: IPRATROPIUM 0.03% NASAL SPRAY EACHNARE SCH (10:21)
[2018-07-06] MEDS: ADVAIR IH SCH (10:31)
[2018-07-06 12:20] VITALS: BP 125/68
--- NOTE | 2018-07-06 13:08 | PDIAF ---
- Diagnosis Diagnosis: OLGA Code Status: Do Not Resuscitate - Medication Management Discharge Medications: electronically signed and located in the Home Medication List. - Orders Services needed: Home Care, Registered Nurse, Physical Therapy, Occupational Therapy Home Care Face to Face: I certify that this patient was under my care and that I had the required brde-ay-[id number] encounter meeting the encounter requirements on the discharge day. My findings support the fact that the patient is homebound as defined in Home Care Face to Face Continued: CMS Chapter 7 Medicare Benefits Manual 30.1.1 , The condition of the patient is such that there exists a normal inability to leave home and consequently, leaving home would require a considerable and taxing effort. Additional Instructions: BMP/Dig on Saturday Follow up with Lou HARRY 1-2 weeks - Follow Up Care Current Providers and Referrals: Lou Betancourt PA [Physician Welfare Director] - follow up in 1 week (1-2 weeks) Sophy King MD [Primary Care Provider] - As per Instructions
[2018-07-06] MEDS: DIGOXIN 125 MCG TAB PO SCH (13:18)
--- NOTE | 2018-07-06 14:08 | PDDCSUM ---
Discharge Summary Discharge Summary: Date of Admission: 07/03/2018 Date of Discharge: 07/06/2018 Consults: Cardiology Procedures: Head CT, CXR Followup: Cardiology, PCP Hospital Course Problem List: A/P # lightheadedness, pre-syncope: unclear if related to Cymbalta (held upon discharge), in setting of copious diarrhea which has improved - Cardiology consulted on 07/04, recommend holding Losartan due to low BP, holding diuretics (home Torsemide) - S/p gentle IVF on 07/04 with improvement in Cr as below - Patient had acute episode on 07/05 with LH, nausea, EKG and Troponin checked without acute ischemic changes # OLGA- Cr increased to 1.8 on 07/04, holding diuretics and IVF, improving this AM with Cr back to baseline 0.8 # IBS/microscopic colitis - was having 8-10 loose BMs a day per patient, was on Miralax at home, recommended holding laxatives, holding Cymbalta, improving # hypoK - repleted # HTN- holding Losartan for discharge # a-fib - eliquis, metop, digoxin restarted by Cardiology on 07/04 # dCHF - seems dry; holding diuretics upon discharge, will f/u with Cardiology next week for further evaluation and management # dilated asc aorta - outpatient follow up Time spent on discharge was >35 minutes with >50% of time spent on patient education and counseling
--- NOTE | 2018-07-06 16:27 | ASDISCHSUM ---
Discharge Information Plan Status:SNF Medically Cleared to Leave:07/06/2018 Discharge Date:07/06/2018 04:18 PM D/C Disposition:Assisted Facility ADT D/C Disposition:Home, Routine, Self-Care Projected Discharge Date:07/07/2018 11:00 AM Transportation at D/C: Discharge Delay Reason: Follow-Up Date:07/07/2018 11:00 AM Discharge Slot: Final Diagnosis: Placement Information Referral Type:*Fpc/SNF Referral ID:[facility]-[id number] Provider Name:[facility] Address 1:[address] Address 2: City:[place] Selection Factors: State:[place] Patient Contact Information Contact Name:SANJU Relationship:Daughter Address:[address] Work Phone: City:[facility] Phone: [facility]/Zip Code:[place] [address] Email: Financial Information Financial Class:Medicare Advantage Plans Primary Plan Desc:JOB MEDICARE ADV Primary Plan Number:[id number] Secondary Plan Desc: Secondary Plan Number: Assessment Information [facility] CM Progress Note CM Note CM Note Notes: Met with patient to discuss possible discharge plan. Patient currently resides at [facility]. Her daughter lives in [place] and will be flying out to stay a few days on Saturday. Patient is presenting with some weakness and agrees she would benefit from a short stay at [facility] SN[facility]. Left a message for FM admission, referral sent. Also completed PASRR. Await c/b from [facility] to confirm they can accommodate on their skilled side. Therapy recommending SNF as well. CM will follow. Plan: [facility] Date Signed: 07/04/2018 04:43 PM Electronically Signed By:Fauzia Vuong RN Intervention Information
== END 2018-07-06 16:18 | DRG 312 ==
LOC: EDUNIT# → INTOOBSV 16:12 → F1N 18:18 → OBSVTOIN 07-04 15:06
PROVIDERS: ADMIT Student in an Organized Health Care Education/Training Program; ATTEND Student in an Organized Health Care Education/Training Program
DX: R55 Syncope and collapse (principal); R42 Dizziness and giddiness; T43.205A Adverse effect of unspecified antidepressants, initial encounter; N17.9 Acute kidney failure, unspecified; I11.0 Hypertensive heart disease with heart failure; I50.32 Chronic diastolic (congestive) heart failure; K58.8 Other irritable bowel syndrome; T46.905A Adverse effect of unspecified agents primarily affecting the cardiovascular system, initial encounter; I95.2 Hypotension due to drugs; E87.6 Hypokalemia; I34.0 Nonrheumatic mitral (valve) insufficiency; I07.1 Rheumatic tricuspid insufficiency; I48.2 Chronic atrial fibrillation; E03.9 Hypothyroidism, unspecified; J45.909 Unspecified asthma, uncomplicated; G47.33 Obstructive sleep apnea (adult) (pediatric); E78.5 Hyperlipidemia, unspecified; I77.810 Thoracic aortic ectasia; Z87.891 Personal history of nicotine dependence
CPT/HCPCS: 84484-ER; 96374; 97110-GP; 97116-GP; 97161-GP; 97166-GO; 97530-GP; 97535-GO; G0378; J2405

== ENCOUNTER → 2018-08-04 | Outpatient (CLI) | payer OTHER | LOC: FLAB 13:56 | PROVIDERS: ATTEND Physician Assistant Medical | DX: R05 Cough (principal) ==

== ENCOUNTER → 2018-09-09 | Outpatient (CLI) | payer OTHER | LOC: FIMAGING 11:04 ==